=== PATIENT | male | born 1960 | race Caucasian/White ===

== ENCOUNTER → 2019-07-04 09:59 | Outpatient (CLI) | payer OTHER, SELFPAY ==
[2017-11-07 11:24] VITALS: BMI 30.4
== END ==
PROVIDERS: Family Provider Family Medicine; PCP Family Medicine; Referring Provider Internal Medicine Hematology & Oncology; Visit Provider Internal Medicine Hematology & Oncology
DX: C90.00 Multiple myeloma not having achieved remission (principal)
CPT/HCPCS: 36415; 86850; 86900; 86901

== ENCOUNTER → 2020-06-17 07:06 | Outpatient (CLI) | payer OTHER, SELFPAY ==
--- NOTE | 2020-06-17 07:11 | CT_ITS ---
STUDY: CT SCAN LOWER EXTREMITY HIP RIGHT REASON FOR EXAM: Male, 59 years old. RIGHT HIP ALPESH. OSTEOARTHRITIS RADIATION DOSAGE (If Supplied By Facility): CTDIvol = ( 14.06 ) mGy, DLP = ( 887.81 ) mGycm. Individualized dose optimization techniques were used for this CT.? TECHNIQUE: Multiple axial tomographic images of the hip joints was obtained without intravenous contrast administration. Coronal and sagittal reconstruction was obtained as well. COMPARISON: None. FINDINGS: There is a marked degree of joint space narrowing and osteoarthritis of the right hip joint with some marginal osteophytes along the superior lateral and inferior medial aspect of the femoral head and acetabulum. There is also evidence of subchondral geodes and possible avascular necrosis. CT/Extremity Lower without Contra IMPRESSION: Marked degree of osteoarthritis of the right hip joint as described with this subchondral geodes and possible avascular necrosis of the femoral head. Electronically Signed: Washington Ventura, at 9:31 EDT , Service support ,
== END ==
PROVIDERS: PCP Family Medicine; Referring Provider Specialist; Visit Provider Specialist
DX: M87.051 Idiopathic aseptic necrosis of right femur (principal)
CPT/HCPCS: 73700

== ENCOUNTER 2020-07-15 07:21 | Observation (INO) | payer OTHER, SELFPAY ==
[2017-11-07 11:24] VITALS: BMI 30.4
--- NOTE | 2020-06-17 14:03 | HP.PCM_ITS ---
History and Physical History and Physical [facility] Patient Name: Satinder Carrion : 1960 From: NATALIE KWONG PA-C DATE OF SURGERY: 07/01/2020 SCHEDULED PROCEDURE: robotic-assisted right total hip arthroplasty with bone biopsy femoral head HISTORY OF PRESENT ILLNESS: Preoperative history and physical exam was performed on June 17, 2020. This is a 59-year-old male who is had ongoing pain for 2 years. Pain with activity can reach 8/10. On average is pain as 5/10. Pain is increased with going up and down stairs, showering, and getting dressed. He does have start up pain. Pain is located in the right groin. Patient has been using a cane on occasion. Patient has had previous formal physical therapy with no improvement. He has been on narcotic pain medication in the past with no relief. Patient denies recent chest pain, shortness of breath, fevers chills, recent infections. Upon initial visit with Dr. Jaylen Garcia, patient did not divulge his full history. Upon examination at his preoperative visit we did discover the patient is currently being treated for multiple myeloma in which he sees an oncologist. He is currently using Bortezomib in which he gets IV every 2 weeks. His last injection was June 09, 2020 and is scheduled for upcoming injection on June 23, 2020. Patient's oncologist is Dr. Centeno. Patient also has history of hypertension as well as gastroesophageal reflux disease. REVIEW OF SYSTEMS: ROS: Const: Denies change in appetite, fever and weight change. CV: Denies chest pain, heart murmur and irregular heartbeat. Resp: Denies cough, pneumonia, shortness of breath, tuberculosis and wheezing. GI: Denies constipation, diarrhea, heartburn, nausea, rectal itching, bloody stools and vomiting. : Denies incontinence. Musculo: Reports pain and trouble walking, but denies leg swelling and weakness. Skin: Reports tattoo, but denies Raynaud's and history of shingles. Neuro: Denies ambulatory dysfunction, dizziness, numbness/tingling and tremor. Psych: Denies anxiety, insomnia and stress. Aidan/Lymph: Denies anemia, bleeding/bruising tendency and past transfusion. Reviewed and updated. PAST MEDICAL HISTORY: Advance Care Plan: No Advance Directives Effective Date: 05/28/2020 PMH: Medical Problems: Arthritis, Hard of Hearing, High Blood Pressure Multiple Myeloma - Dr Centeno Acid Reflux Accidents: Rib FX, Index Finger FX Surgical Hx: None Anesthesia Complications: None Assistive Devices: Glasses, Dentures, Cane Reviewed and updated. SOCIAL HISTORY: SH: Marital: .Occupation: Retired.Work Status: Retired.Hand Dominance: Right- handed. Personal Habits: Cigarette Use: Former.Smokeless Tobacco: Never Used Smokeless Tobacco.E-Cigarette Use: Never used.Alcohol: Has consumed alcohol in the pas t.Drug Use: Denies Use.Enjoy Exercising: Exercises 1-3 x/month. Reviewed and updated. VITALS: Ht: 75 Wt: 263lb Wt k.297 BMI: 32.9 BP: 124/84 Pulse: 86 T: 96.6 T: 35.9C ALLERGIES: No Known Drug Allergy MEDICATIONS: Darion Aspirin 325 mg 1po qday, Lisinopril 10 mg 1po qday, Omeprazole 20 mg prn, Hydrochlorothiazide 12.5 mg 1po qday, Dexamethasone 4 mg 1po qday, Bortezomib 3.5 mg subcutaneous every 2 weeks, Cyclophosphamide IV every 2 weeks, Darzalex (Daratumumab) IV every 2 weeks PRE-OP EXAM: General appearance:NORMAL Other: Eyes: Conjunctivae and lids: NORMAL Pupils: ERR Ears, Nose, Mouth, and Throat: NORMAL Other: Inspection of lips, teeth and gums: NORMAL Other: Neck: Examination of neck: no masses noted. Respiratory: Assessment of respiratory effort: NORMAL Other: Auscultation of lungs: clear to auscultation no wheezes, rhonchi or rales. Cardiovascular: Auscultation of heart: rhythm is consistent with heart block, no murmurs, gallops or rubs. Exam of carotid arteries: NORMAL Other: Gastrointestinal: Exam of abdomen: soft, nontender, nondistended bowel sounds present. PHYSICAL EXAMINATION: Patient does walk with an antalgic gait. He has tenderness to palpation along the lateral hip over the greater trochanteric region. Right hip patient has obligatory external rotation with flexion. Flexion 55, internal rotation neutral, external rotation 15. Patient does have increased groin pain with range of motion. Patient's right leg is 2 mm shorter than the left. He also has a 15 flexion contracture on the right. Sensation intact to light touch. Neurovascularly intact. IMAGING STUDIES: Previous x-rays of the right hip were reviewed which does show severe joint space narrowing with subchondral sclerosis, osteophyte formation consistent with severe stage IV osteoarthritis. There is collapse of the femoral head consistent with avascular necrosis. X-rays were then discussed with Dr. Jaylen Garcia and after further evaluation there does appear to be some scant lucencies in the proximal femur. IMPRESSION: 1. Severe stage IV osteoarthritis left hip with collapse of the femoral head and scant lucencies in the proximal femur 2. Multiple myeloma 3. Hypertension 4. Gastroesophageal reflux disease PLAN: Dr. Jaylen Garcia did discuss and review with the patient all treatment options including surgical versus nonsurgical options. Patient does wish to proceed with the above-stated procedure. Potential risks, benefits, and complications of the procedure were discussed in detail including but not limited to , infection, nerve and blood vessel damage, persistent pain, numbness, tingling, paresthesias, blood clot, pulmonary embolism, and requirement for possible further surgery. The patient expressed full understanding and has no further questions for the doctor. Patient does agree to proceed with the above-stated procedure and has signed the surgery consent form. In addition we are going to obtain an MRI with and without contrast of the right hip due to patient's recent discovery of having multiple myeloma. Upon further review the x-rays there does appear to be some scant lucency in the proximal femur. We also discussed with the patient that we will need to get surgical clearance from his oncologist Dr. Centeno. Patient will need to stop his current IV medication Bortezomib. We will appreciate recommendation was stopping this medication prior to surgery and post surgery. He will also need to stop his aspirin 325 mg 5 days leading up to surgery. We are obtaining surgical clearance from his primary care physician. Patient will be getting pre- operative labwork and EKG. This dictation was created using voice recognition software. Phonetic and/or grammatical errors may exist. ___ I have re-examined the patient. There are no clinical changes since date of exam. ___ See progress notes for changes. ___ Dictated on admission Date: Time: Signature:
--- NOTE | 2020-06-22 09:58 | EKG12_ITS ---
Test Reason : PREOP Blood Pressure : / mmHG Vent. Rate : 086 BPM Atrial Rate : 086 BPM P-R Int : 170 ms QRS Dur : 092 ms QT Int : 362 ms P-R-T Axes : 053 002 010 degrees QTc Int : 433 ms Sinus rhythm with occasional Premature ventricular complexes Nonspecific ST abnormality Abnormal ECG Confirmed by SAULO MCINTYRE, DOMINGA ([id number]), scientific editor AURA GATES ([id number]) on 06/23/2020 10:48:28 AM Referred By: Jaylen Garcia Confirmed By:DOMINGA VERNON MD
[2020-06-22 10:38] LABS: Absolute Lymphocyte Count 2.31 X10^3/uL (0.83-4.51); Absolute Neutrophil Count 3.6 X10^3/uL (2.0-7.7); Basophil# 0.05 X10^3/uL; Basophil% 0.7 % (0-1); Eosinophil# 0.16 X10^3/uL; Eosinophils% 2.3 % (0-5); Hematocrit 43.9 % (40-54); Hemoglobin 14.8 g/dL (13.0-16.5); Lymphocyte # 2.31 X10^3/ul (4.0); Lymphocyte % 33.8 % (19-41); Mean Corp Hgb Conc 33.7 g/dL (32-36); Mean Corpuscular Hgb 30.5 pg (27.0-32.0); Mean Corpuscular Volume 90.5 fL (80-94); Mean Platelet Vol. 9.8 fl (6.2-12.0); Monocyte# 0.74 X10^3/uL; Monocyte% 10.8 % (0-10); NRBC Flagged by Analyzer 0 % (0-5); Neutrophil # 3.56 X10^3/uL (2.7-7.7); Neutrophil % 52.1 % (47-70); Platelet Count 273 K/mm3 (150-450); RBC Distribution Width SD 46.1 fl (35.1-43.9); Red Blood Count 4.85 M/mm3 (4.6-6.2); White Blood Count 6.8 K/mm3 (4.4-11.0)
[2020-06-22 11:03] LABS: Anion Gap 10 (5-15); BUN 13 mg/dL (7-18); Calcium,Total 8.4 mg/dL (8.5-10.1); Chloride 102 mmol/L (98-107); Creatinine, Serum 1.08 mg/dL (0.70-1.30); EST Glomerular Filtration Rate 74 mL/min (>60); Est Glom Filt Rate - Afr Amer 89 mL/min (>60); Glucose 132 mg/dL (74-106); Potassium 3.6 mmol/L (3.5-5.1); Sodium Level 138 mmol/L (136-145)
[2020-06-22 11:06] LABS: Magnesium 2.2 mg/dL (1.6-2.6)
[2020-07-15] VITALS (11 sets, daily range): BP systolic 107–173; BP diastolic 64–101; PULSE 54–73; RESP 16–18; TEMP 36.1–37.1; O2SAT 96–100; BMI 32.6
--- NOTE | 2020-07-15 | HIP_PTH ---
PATIENT: CE RICHARDSON LOC: MS3 U#:[id number] AGE/SX: 59/M ROOM: MS317 RE07/15/[address]: Dr. Jaylen Garcia MD : 1960 BED: 1 DIS: 07/16/2020 SPEC #: [id number] RECD: 07/15/20 10:36 STATUS: LEANNA REQ #: [id number] PRASANNA: 07/15/20 00:[address]: Jaylen Garcia DEPT: SURGICAL PATHOLOGY RECD BY: Salty Herrera ENTERED: 07/15/20 10:36 SP TYPE: TOTAL HIP OTHR DR: Dr. Akil Montesinos III, MD Tissues: Hip, NOS Procedures: Decalcification bone/plaque Surgery Specimen Level IV HEADER OPERATION: ERAS, total hip anterior robotic arm, bone biopsy femoral head PRE-OP DIAGNOSIS: Severe stage IV osteoarthritis left hip with collapse of femoral head and scant lucencies in the proximal femur TISSUE SUBMITTED: Right femoral head MICROSCOPIC DIAGNOSIS Bone and soft tissue of right hip, total hip resection: Severe degenerative joint disease. AM:wilfrido 07/21/20 MICROSCOPIC DESCRIPTION Slides are reviewed. GROSS DESCRIPTION Received is one container designated right femoral head. The specimen consists of a femoral head measuring 6 x 6.5 x 5 cm. A few pieces of soft tissue attached on the femoral head measures in aggregate 3.5 x 3.5 x 1.5 cm. The articular surface displays prominent osteophyte formation, eburnation and bone erosion. General Technician sections are submitted in two cassettes as follows: 1 - soft tissue, 2??bone after decalcification. / SJ:wilfrido 07/15/20 TC:5 CPT: 59631, 94525
[2020-07-15] MEDS: Lactated Ringers 1,000 ML 999 ML IV ×2 (06:04→09:52)
[2020-07-15] MEDS: Scopolamine 1mg/72hr Patch 1 PATCH TRANSDERM. (06:05)
[2020-07-15] MEDS: Acetaminophen 500 MG Tablet 1000 MG PO ×3 (06:05→20:59)
[2020-07-15] MEDS: Gabapentin 600 MG Tablet PO (06:05)
[2020-07-15] MEDS: Celecoxib 200 MG Capsule 400 MG PO (06:05)
[2020-07-15 06:41] LABS: Bedside Glucose 126 mg/dL (70-110)
[2020-07-15] MEDS: Cefazolin 2 GM in 0.9% Normal Saline 100 ML IV (07:24)
--- NOTE | 2020-07-15 08:44 | RAD_ITS ---
STUDY: X-RAY - RIGHT HIP REASON FOR EXAM: Male, 59 years old. Total anterior hip with ALPESH in OR TECHNIQUE: 3 intraoperative views of the right hip. COMPARISON: None. FINDINGS: Intraoperative images demonstrate total placement of the right hip. Hardware components are well aligned on these limited views. RAD/Hip 1 view with Pelvis IMPRESSION: Intraoperative right hip replacement images as noted. Electronically Signed: Andrey Porter DO at 17:06 EDT Tel [phone], Service support ,
--- NOTE | 2020-07-15 09:13 | OP.PCM_ITS ---
Report of Operation Date of Procedure: 07/15/20 Pre-Operative Diagnosis: Right hip primary osteoarthritis Post-Operative Diagnosis: Right hip primary osteoarthritis Surgery/Procedure Performed:: Right minimally invasive direct anterior robotic assisted total hip replacement Description of Surgical Findings:: Stable hip with equal leg lengths set up mechanic crown assembly machine: Rachel Hendricks Type of Anesthesia:: Spinal Anesthesiologist: Renan Sanderson Special Medications: 2 g Ancef, 1 g TXA at incision, 1 g TXA closure, 10 mg Decadron, joint cocktail (5 mg Duramorph, 30 mL of 0.5% Ropivicaine, 1000 units of epinephrine, 30 mg of Toradol) Specimen's removed: Femoral head was sent to pathology Estimated Blood Loss (mL): 250 Fluids Replaced: 800 mL crystalloid Description of Procedure: Components used: 1. Accolade 2 [place] femoral stem size 11 132? 2. Stone trident 2 acetabular shell size 64 mm 3. [place] X3 polyethylene H 4. Stone Biolox delta 36 mm, 2.5 mm femoral head Brief history operative indications: 59 yo m who failed conservative measures for their hip osteoarthritis. X-rays were consistent with osteoarthritis including joint space narrowing, osteophyte formation and subchondral cysts. Total hip replacement was discussed with the patient with risks and benefits including but not limited to blood loss, DVTs, PEs, neurovascular damage, dislocation, general risks of anesthesia including loss of life. Patient demonstrated an understanding medical clearance is obtained the patient was consented for surgery. Procedure: On the date of procedure the patient's R hip was marked in the preoperative area. Patient was then taken back to the operating room where anesthesia assumed control of the C-spine and airway and administered anesthetic. Patient was transferred to the operating table and placed in the supine position. The hips were placed at the break of the bed and a sacral bump was placed. A checkpoint was placed on the tibial tubercle. The R lower extremity was then prepped out in a sterile fashion using chlorhexidine while the surgeon scrubbed. The PA was vital in the positioning of the patient. Upon reentering the room the R lower extremity was draped in the standard orthopedic fashion and the incision was marked. A timeout was called and everyone agreed upon the side, the site, the procedure be performed, antibody given, and patient's identity. 3 pins were placed in the right iliac crest with a small skin incision and blunt dissection down to the bone. After the skins were placed in a ray was placed for targeting. At this time left hip operative incision was made through skin, subcutaneous tissue, and fat down to fascia. The fascia was then incised and the TFL was retracted laterally. A retractor was placed on the lateral border of the femoral neck. Attention was directed to the inferior portion of the approach and all crossing vessels were identified and appropriately coagulated. A retractor was then placed on the medial portion of the femoral neck. The anterior capsule was then cleared of all soft tissue and then H shaped capsulotomy was made. The retractors were then placed inside the capsule. The checkpoint was placed. The checkpoints were registered. The femoral neck was identified and a cleanup cut was made. At this time a power corkscrew was used to remove the femoral head. Attention was then turned toward the acetabulum where the soft tissues were appropriately retracted and debrided. The acetabulum was registered. The robot was brought into the field sterilely and the acetabulum was reamed to 64 mm. A 64 mm cup was then selected and impacted into place. Acetabular liner was impacted into place and locking mechanism was verified. The position of the acetabular cup was then verified under live fluoroscopy. Attention was then turned to the femur. Soft tissue releases on the medial and lateral femoral neck were appropriately done, the leg was externally rotated and lateralized. A Haider retractor was placed medially and proximally to the greater trochanter this allowed appropriate visualization and exposure of the femoral canal. Rongeour was then used to remove excess lateral bone. A canal finder and entry broach were used to open the proximal canal. Once we verified we were down the femoral canal we subsequently broached up to a size 11 femur. The appropriate neck was placed in the previously selected head was trialed with a 2.5 mm neck. Traction was pulled and the hip was reduced with internal rotation. Once it was appropriately reduced and stability was checked. There was minimal shuck, equal leg lengths and appropriate stability with hyperextension and external rotation as well as with 90? flexion and internal rotation. Fluoroscopy was then also used to verify the position of the components and leg lengths using the contralateral side for comparison. The trial components were then dislocated the proximal femur was again exposed and the components were removed from the wound. The final components were jyothi ified and opened. The wound was copiously irrigated out with normal saline. The acetabulum was checked for any residual debris. The final components were placed and impacted. Traction and internal rotation were again used to reduce the hip. After adequate reduction the hip remained stable with appropriate leg lengths. The final components were once again checked with live fluoroscopy and were found to be satisfactory. The wound was then copiously irrigated with normal saline once more, and hemostasis was obtained. Closure was then done using #1 Vicryl runner to close the fascia. A 2-0 vicryl interuppted sutures were used to close the subcutaneous skin. A 3-0 Monocryl and Steri-Strips were used for final skin closure. the pins were removed and pin sites closed. A sterile dressing was placed. Patient was awakened by anesthesia and transferred to the [facility]. Patient was then transferred to the PACU for recovery. Postoperative plan: Patient will get 24 hours postop antibiotics. Patient will get in-house physical therapy and will be weight-bear as tolerated. Patient will follow up in office in 2 weeks for a wound check and x-rays. Patient be placed on Xarelto for DVT prophylaxis due to current treatment for multiple myeloma. - Complications No intraoperative complications - Admit VTE Documentation VTE Present on Admission: No VTE Mechan Device Prophylaxis: SCD's, Thigh High AYAZ Hose VTE Pharm Prophylaxis ordered?: Yes
--- NOTE | 2020-07-15 10:08 | RAD_ITS ---
STUDY: X-RAY - PELVIS AND RIGHT HIP REASON FOR EXAM: Male, 59 years old. POST OP TECHNIQUE: 2 views of the pelvis and hip. COMPARISON: None. FINDINGS: The patient is status post right total hip preplacement. There is good alignment. RAD/Hip Min 2 Views (Portable) IMPRESSION: Total right hip replacement. There is good alignment. Electronically Signed: Washington Ventura, at 11:25 EDT , Service support ,
[2020-07-15] MEDS: Lactated Ringers 1,000 ML 125 ML IV ×2 (10:18→15:21)
[2020-07-15] MEDS: Ensure Surgery 237 ML LIQUID PO ×2 (12:58→18:39)
[2020-07-15] MEDS: Senna/Docusate Sodium 1 Tablet 2 TABLET PO ×2 (12:59→20:59)
[2020-07-15] MEDS: Famotidine 20 MG Tablet PO (12:59)
[2020-07-15] MEDS: hydroCHLOROthiazide 12.5mg 12.5 MG PO (13:00)
[2020-07-15] MEDS: Lisinopril 20 MG Tablet PO (13:00)
[2020-07-15] MEDS: amLODIPine 5 MG Tablet PO (13:00)
[2020-07-15] MEDS: Cefazolin 1 GM/50 ML BAG IV ×2 (15:22→23:25)
[2020-07-15] MEDS: Aspirin 81 MG TAB.CHEW PO (17:13)
[2020-07-15] MEDS: oxyCODONE 5 MG Tablet PO ×2 (17:13→21:19)
[2020-07-16 01:30] VITALS: BP 107/81; PULSE 77; RESP 16; TEMP 37.2; O2SAT 97
[2020-07-16] MEDS: oxyCODONE 5 MG Tablet PO ×3 (01:36→12:52)
[2020-07-16 05:38] VITALS: BP 106/67; PULSE 73; RESP 18; TEMP 37.2; O2SAT 95
[2020-07-16] MEDS: Acetaminophen 500 MG Tablet 1000 MG PO ×2 (05:40→12:51)
[2020-07-16 06:44] LABS: Hematocrit 32.4 % (40-54); Hemoglobin 10.7 g/dL (13.0-16.5); Mean Corpuscular Hgb 30.8 pg (27.0-32.0); Mean Corpuscular Volume 93.4 fL (80-94); Mean Platelet Vol. 10.2 fl (6.2-12.0); Platelet Count 206 K/mm3 (150-450); RBC Distribution Width CV 14.6 % (11.6-14.6); RBC Distribution Width SD 50.1 fl (35.1-43.9); Red Blood Count 3.47 M/mm3 (4.6-6.2); White Blood Count 9.1 K/mm3 (4.4-11.0)
[2020-07-16 07:05] LABS: Anion Gap 5 (5-15); BUN 17 mg/dL (7-18); BUN/Creat Ratio 17.7 RATIO (10-20); Calcium,Total 7.9 mg/dL (8.5-10.1); Chloride 105 mmol/L (98-107); Creatinine, Serum 0.96 mg/dL (0.70-1.30); EST Glomerular Filtration Rate 85 mL/min (>60); Est Glom Filt Rate - Afr Amer 102 mL/min (>60); Estimated Creatinine Clearance 96.58 ml/min; Glucose 133 mg/dL (74-106); Potassium 3.8 mmol/L (3.5-5.1); Sodium Level 135 mmol/L (136-145)
--- NOTE | 2020-07-16 07:46 | PN.ORTHO_ITS ---
Subjective: The patient was sitting in bedside chair upon examination. Patient denies any chest pain, shortness of breath, dizziness, lightheadedness, nausea or vomiting, or calf pain. Pain is controlled on medications. No adverse overnight events. Overall patient is doing well. Pain is been well controlled. Patient does have history of multiple myeloma and currently is on Xarelto for DVT prophylaxis. Objective: Vital signs stable and afebrile. Patient is able to plantarflex and dorsiflex actively. Sensation is intact to light touch to saphenous, sural, superficial and deep peroneal, and tibial distribution. Dressing is clean dry and intact. Negative Homans bilaterally, negative signs and symptoms of DVT. - Physical Exam Vitals/I&O's: Vital Signs Temp Pulse Resp BP Pulse Ox 98.9 F 73 18 106/67 95 07/16/20 05:38 07/16/20 05:38 07/16/20 05:38 07/16/20 05:38 07/16/20 05:38 Oxygen Flow Rate (L/min) 6 Oxygen Delivery Method Room Air Weight: 118.5 kg Body Mass Index (BMI) 32.6 Intake and Output for Last 24 Hours 07/14/20 07/15/20 07/16/20 23:59 23:59 23:59 Intake Total 3888.25 / 4188.25 1350 / 1350 Output Total 450 / 1150 950 / 950 Balance 3438.25 / 3038.25 400 / 400 General: Alert, Oriented x3, Cooperative, No apparent distress Laboratory Results 07/16/20 06:28: WBC 9.1, RBC 3.47 L, Hgb 10.7 L, Hct 32.4 L, MCV 93.4, MCH 30.8, MCHC 33.0, RDW Std Deviation 50.1 H, RDW Coeff of Kerline 14.6, Plt Count 206, MPV 10.2 07/16/20 06:28: Sodium 135 L, Potassium 3.8, Chloride 105, Carbon Dioxide 25.0, Anion Gap 5, BUN 17, Creatinine 0.96, Estim Creat Clear Calc 96.58, Est GFR (MDRD) Af Amer 102, Est GFR (MDRD) Non-Af 85, BUN/Creatinine Ratio 17.7, Glucose 133 H, Calcium 7.9 L Current Medications Acetaminophen (Tylenol) 1,000 mg PO Q8 DIONNE Last Admin: 07/16/20 05:40 Dose: 1,000 mg Documented by: Amlodipine Besylate (Norvasc) 5 mg PO DAILY [facility] Last Admin: 07/15/20 13:00 Dose: 5 mg Documented by: Aspirin (Aspirin) 325 mg PO DAILY@0800 [facility] Enteral Nutritional Formula (Ensure Surgery) 237 ml PO TIDCM [facility] Last Admin: 07/15/20 18:39 Dose: 237 ml Documented by: Famotidine (Pepcid) 20 mg PO DAILY [facility] Last Admin: 07/15/20 12:59 Dose: 20 mg Documented by: Hydrochlorothiazide () 12.5 mg PO DAILY [facility] Last Admin: 07/15/20 13:00 Dose: 12.5 mg Documented by: Lactated Ringer's () 1,000 mls @ 125 mls/hr IV .Q8H [facility] Last Infusion: 07/16/20 05:41 Dose: Infused Documented by: Sodium Chloride () 250 mls @ 15 mls/hr IV .[id number] PRN PRN Reason: Saline Flush Insulin Human Lispro (Humalog Kwikpen ([facility])) 1 - 6 unit SC Q4H PRN PRN; Protoco l PRN Reason: BG>/= 180, SEE PROTOCOL Ketorolac Tromethamine (Toradol ([facility])) 15 mg IV Q6H PRN PRN PRN Reason: Pain Score 1-5/10 Lisinopril (Zestril) 20 mg PO DAILY [facility] Last Admin: 07/15/20 13:00 Dose: 20 mg Documented by: Meloxicam (Mobic) 7.5 mg PO BID [facility] Morphine Sulfate () 2 - 4 mg IV Q2H PRN PRN PRN Reason: Pain Score 4-10/10 Morphine Sulfate () 2 - 4 mg IV Q2H PRN PRN PRN Reason: Pain Score 4-10/10 Ondansetron HCl (Zofran) 4 mg IV Q8H PRN PRN PRN Reason: NAUSEA Oxycodone HCl (Oxyir) 5 - 10 mg PO Q4H PRN PRN PRN Reason: Pain Score 4-10/10 Last Admin: 07/16/20 01:36 Dose: 10 mg Documented by: Promethazine HCl (Phenergan) 12.5 mg IM Q6H PRN PRN; Protocol PRN Reason: NAUSEA/VOMITING Rivaroxaban (Xarelto) 10 mg PO DAILY@1700 [facility] Senna/Docusate Sodium (Senokot-S, Jovana-Colace) 2 tablet PO BID [facility] Last Admin: 07/15/20 20:59 Dose: 2 tablet Documented by: Sodium Chloride () 10 - 40 ml IV UD PRN PRN Reason: SALINE FLUSH Medical Necessity - Tobacco Use Smoking Status: Former smoker Tobacco Use: Non-smoker Assessment/Plan All Active Problems Infected ulcer of skin (Acute) Varicosities of leg (Acute) Peripheral vascular occlusive disease (Acute) Leg ulcer, left (Acute) Hypergranulation (Resolved) Chronic ulcer of left leg with fat layer exposed (Resolved) Venous ulcer of left leg (Acute) No significant past medical history (Acute) 1. S/P right direct anterior total hip arthroplasty POD #1 2. Continue Pain Medications: Tylenol and OxyIR 3. DVT Prophylaxis: Xarelto 10 mg once daily due to patient having underlying multiple myeloma. We will use Xarelto for 2 weeks postoperatively. He will continue with his aspirin prescribed by the primary care physician. Case was discussed with Dr. Jaylen Garcia. 4. PT/OT: Weightbearing as tolerated 5. H & H: 10.7/32.4, asymptomatic. Secondary to acute blood loss from surgery 6. Encouraged Incentive Spirometry 7. Disposition: Plan will be for discharge home today as long as pain is well controlled and patient tolerates physical therapy. Prescriptions will be E s cribed to [facility] in [facility]. Patient will follow-up per postop instructions. He does have outpatient physical therapy established. I have reviewed the [place] [employer] [facility] Reporting System ([facility]ARRS) report for this patient for refill pattern and other prescriber involvement as part of the appropriate surveillance for the provision of acute and chronic controlled medications. The report was requested and reviewed on the date of this entry and was considered in the prescribing process.
--- NOTE | 2020-07-16 07:54 | DCINST_ITS ---
Discharge Diet: No Restrictions Discharge Activity: May Not Drive - while taking narcotic pain medications. May shower in (days): 1 - Dressing must be intact to skin. Turn dressing away from water Ice area for (Minutes): 20 - Every 1-2 hours while awake Weight Bearing Status: Weight bearing as tolerated Elevate: Operative Extremity Additional Activity Instructions:: Wear elastic stockings for 2 weeks. DO NOT use alcohol with narcotic pain medication. DO NOT make important decisions while taking narcotic medication. If you have problems with taking your medication (rash, itching, nausea, etc.) call the office at once. Call your doctor if your incision/area has: Increased Pain/ Swelling, Increased Redness, Foul Smelling Discharge Call your doctor if you observe: Fever of 101 or Higher Remove Dressing in (days):: 4 - Okay to remove dressing on July 20, 2020 Additional Instructions: Follow orthopedic postop instructions Allergies/Adverse Reactions: Allergies No Known Allergies Allergy (Verified 07/15/20 05:28) Medications to take at Discharge Lisinopril/Hydrochlorothiazide [Zestoretic 20-12.5 mg Tablet] 1 each PO DAILY 03/02/17 Amlodipine Besylate [Norvasc] 5 mg PO DAILY 10/25/17 Aspirin E.C. [Ecotrin] 325 mg PO DAILY@0800 06/18/20 Acetaminophen [Tylenol] 1,000 mg PO Q8 #100 tab 07/16/20 Oxycodone [Oxyir] 5 - 10 mg PO Q4H PRN PRN 4 Days #48 tablet 07/16/20 Rivaroxaban [Xarelto] 10 mg PO DAILY@1700 #13 tab 07/16/20 Senna/Docusate Sodium [Senokot-S] 2 tab PO BID #10 tab 07/16/20 The following prescriptions were given: Oxycodone [Oxyir] 5 - 10 mg PO Q4H PRN PRN 4 Days #48 tablet PRN Reason: Pain Score 4-10/10 Transmission Status: Received by LEATHA SELF RD Senna/Docusate Sodium [Senokot-S] 2 tab PO BID #10 tab Transmission Status: Pending to LEATHA SELF RD Acetaminophen [Tylenol] 1,000 mg PO Q8 #100 tab Transmission Status: Pending to LEATHA SELF RD Rivaroxaban [Xarelto] 10 mg PO DAILY@1700 #13 tab Transmission Status: Pending to [facility] JACKSON[address] CLAIR MERIDA Primary Care Physician: Akil Montesinos III, MD [Primary Care Provider] - Test Results: Test results from this visit will be discussed in further detail at your follow- up appointment, if applicable. Please Follow Up With: Physical Therapy [facility] When: 07/21/20 Please Follow Up With: Doug Perry PA-C When: 07/29/20 @ 10:30 am
[2020-07-16] MEDS: Ensure Surgery 237 ML LIQUID PO ×2 (08:16→12:50)
[2020-07-16] MEDS: Aspirin 325 MG Tablet PO (08:16)
--- NOTE | 2020-07-16 10:25 | CASEMGMT ---
MUSHTAQ RAMSEY Face to Face with patient for initial transition planning/care coordination assessment. RN CM introduced self and role at [facility]. Patient lying in bed, alert and oriented. Patient willing to participate in assessment and is able to answer all questions appropriately. Care providers, pharmacy, and demographics verified. Patient wishes to discharge home and is setup with [facility] for outpatient therapy. Patient states he has no further needs or concerns at this time. CM to follow for discharge planning needs that may arise. PCP: [facility] Specialists: anastasia Garcia; Taryn, oncology Preferred Pharmacy: [facility] Insurance: MMO Prescription Benefit: yes Living Will/HPOA: yes Malena Carrion LNOK: Living Arrangements: Patient lives with in a 1 story home with 2 steps to enter the home. Patient states he was independent at home prior to surgery. Transportation: DME/HHC: Patient states he has shower chair, raised toilet, cane, walker, rollator, wheelchair at home. Patient is setup with [facility] for outpatient therapy. Disposition Plan: Patient to discharge home with outpatient therapy, family support, and follow-up plans in place. Nancy KOCH, RN, CM
[2020-07-16 10:37] VITALS: BP 105/66; PULSE 71; RESP 18; TEMP 36.7; O2SAT 94
[2020-07-16] MEDS: Lisinopril 20 MG Tablet PO (10:42)
[2020-07-16] MEDS: Senna/Docusate Sodium 1 Tablet 2 TABLET PO (10:42)
[2020-07-16] MEDS: hydroCHLOROthiazide 12.5mg 12.5 MG PO (10:42)
[2020-07-16] MEDS: amLODIPine 5 MG Tablet PO (10:42)
[2020-07-16] MEDS: Famotidine 20 MG Tablet PO (10:42)
[2020-07-16] MEDS: Ketorolac 15 MG/ML Vial IV (10:43)
[2020-07-16] MEDS: 0.9% Saline Lock 10 ML Syringe IV (10:43)
== END 2020-07-16 13:56 | disposition home or self-care (01) ==
LOC: MS3 11:18 → SDC 11:19 → MS3 11:19
PROVIDERS: Anesthesiology; Admitting Provider Specialist; PCP Family Medicine; Referring Provider Specialist; Visit Provider Specialist
PROC: 8E0Y0CZ Robotic Assisted Procedure of Lower Extremity, Open Approach (ICD-10-PCS; CPT 27130; principal; 2020-07-15 07:05)
DX: M16.11 Unilateral primary osteoarthritis, right hip (principal); Z11.59 Encounter for screening for other viral diseases; K21.9 Gastro-esophageal reflux disease without esophagitis; I10 Essential (primary) hypertension; R94.31 Abnormal electrocardiogram [ECG] [EKG]; C90.00 Multiple myeloma not having achieved remission; Z79.899 Other long term (current) drug therapy; Z79.82 Long term (current) use of aspirin; Z87.891 Personal history of nicotine dependence
CPT/HCPCS: 01214; 27130; S2900; 36415; 73501; 73502; 76000; 80048; 82962; 83735; 85025; 85027; 87077; 87081; 87635; 88305; 88311; 93005; 94799; 96361; 96365; 96366; 96375; 97110; 97116; 97162; 97166; 97530; 99218; 99251; C1776; J7120; A4216; G0378; G0379; G0463; J2405; U0003

== ENCOUNTER 2020-09-08 04:25 | Emergency (ER) | payer OTHER, SELFPAY ==
[2020-07-15 05:50] VITALS: BMI 32.6
[2020-09-08] VITALS (7 sets, daily range): BP systolic 110–133; BP diastolic 65–86; PULSE 75–107; RESP 16–24; TEMP 36.6–37.9; O2SAT 93–96; BMI 31.6
--- NOTE | 2020-09-08 05:10 | EKG12_ITS ---
Test Reason : SOB Blood Pressure : / mmHG Vent. Rate : 101 BPM Atrial Rate : 101 BPM P-R Int : 168 ms QRS Dur : 094 ms QT Int : 318 ms P-R-T Axes : 044 -12 009 degrees QTc Int : 412 ms Sinus tachycardia Otherwise normal ECG Confirmed by MARILIN MCINTYRE, JENNIFER ([id number]), editor book AURA GATES ([id number]) on 09/10/2020 9:02:17 AM Referred By: SANTOSH Confirmed By:JENNIFER GASTON MD
--- NOTE | 2020-09-08 05:10 | RAD_ITS ---
HISTORY: Cough x2 days, rib pain. ADDITIONAL HISTORY: None provided. EXAMINATION/TECHNIQUE: XR Chest 1 View AP/PA Number of images including paperwork: 1 COMPARISON: 11/07/2017 FINDINGS: LUNGS AND PLEURA: Low lung volumes. No consolidation, mass or pleural effusion. Linear basilar opacities compatible with subsegmental atelectasis versus scarring. CARDIAC SILHOUETTE: Unremarkable. MEDIASTINUM AND CLEMENT: Unremarkable. UPPER ABDOMEN: Unremarkable. SKELETON AND SOFT TISSUES: No acute skeletal findings. Right posterior eighth rib deformity appears similar. OTHER DEVICES AND HARDWARE: None. RAD/Chest 1 View (Portable) IMPRESSION: Mild basilar atelectasis versus scarring. at 0606 Reported and signed by: Eunice Phelps MD Electronically Signed: Eunice Phelps MD at 6:05 EDT Tel , Service support ,
--- NOTE | 2020-09-08 05:12 | ED.DCSUM_ITS ---
History of Present Illness Chief Complaint: Chest Other Informant: Patient Narrative: 60-year-old male with history of multiple myeloma on chemotherapy currently presenting for rib pain, cough. He states he thought he had a fever on Monday but did not check his temperature. He does not believe he has had a return of this. He does not have shortness of breath but he is saying that his ribs hurt. No loss of taste or smell. No body aches. He is not short of breath. He does not think he has been around anybody that has been ill. - Past Medical History (1) Hypertension Status: Chronic Past Medical History - Allergies and Home Meds Allergies/Adverse Reactions: Allergies No Known Allergies Allergy (Verified 09/08/20 04:35) Primary Care Physician: Akil Montesinos III, MD [Primary Care Provider] - Past Medical History: - - Multiple myeloma Surgical History: noncontributory, tonsillectomy Lives: Spouse/ Significant Other Smoking Status: Former smoker Alcohol: None Drugs: None Review of Systems General: Reports: Chills, Fever. Denies: Malaise Eyes: Denies: Visual changes - bilaterally, Diplopia ENT: Reports: Bilateral ear pain Cardiovascular: Denies: Chest pain, Palpitations Respiratory: Reports: Cough, - - Bilateral lower rib pain. Denies: Dyspnea Genitourinary: Denies: Dysuria, Hematuria Musculoskeletal: Denies: Myalgias, Arthralgias Skin: Denies: Rash, Abscess Neurological: Denies: Headache, Weakness Physical Exam Vital Signs/Narrative: Vital Signs Temp Pulse Resp BP Pulse Ox 09/08/20 04:32 99.2 F H 107 H 24 H 133/86 H 96 09/08/20 04:29 99.2 F H 107 H 24 H 133/86 H 96 Inital Vital Signs reviewed: Yes General: Well nourished, Well developed, No Acute Distress Head: Normocephalic, Atraumatic Eyes: Perrl, EOMI ENT: Moist mucous membranes Cardiovascular: Regular rhythm, Tachycardia Respiratory: No distress, CTA bilaterally, - - Tenderness to palpation of the lower ribs bilaterally in the midclavicular line. No crepitance. No deformity. Abdomen: Soft, Nontender Extremities: Nontender, No edema Skin: Normal color, No rash. Negative for: Cyanosis Neurological: Alert, Oriented x3 Psychological: Normal affect, Normal Mood Diagnostic/Tx/Re-eval Clinical Impression(s) from Imaging Studies Chest X-Ray 09/08/20 05:10 IMPRESSION: Mild basilar atelectasis versus scarring. at 0606 Reported and signed by: Eunice Phelps MD Electronically Signed: Eunice Phelps MD at 6:05 EDT Tel , Service support , Laboratory Data 09/08/20 09/08/20 09/08/20 05:32 05:32 05:32 WBC 5.6 RBC 4.36 L Hgb 13.0 Hct 39.7 L MCV 91.1 MCH 29.8 MCHC 32.7 RDW Std Deviation 47.2 H RDW Coeff of Kerline 14.2 Plt Count 195 MPV 10.1 Immature Gran % (Auto) 0.400 Neut % (Auto) 75.1 H Lymph % (Auto) 15.7 L Trinity % (Auto) 8.4 Eos % (Auto) 0.2 Baso % (Auto) 0.2 Absolute Neuts (auto) 4.2 Absolute Lymphs (auto) 0.88 Nucleated RBC % 0 PT 14.0 INR 1.1 APTT 38.4 H Sodium 135 L Potassium 3.9 Chloride 105 Carbon Dioxide 22.0 Anion Gap 8 BUN 20 H Creatinine 0.99 Estim Creat Clear Calc 92.47 Est GFR (MDRD) Af Amer 99 Est GFR (MDRD) Non-Af 82 BUN/Creatinine Ratio 20.3 H Glucose 135 H Lactic Acid Calcium 8.5 Total Bilirubin 0.40 AST 10 L ALT 18 Alkaline Phosphatase 81 Troponin I < 0.015 Total Protein 7.5 Albumin 3.3 Globulin 4.2 Albumin/Globulin Ratio 0.8 L Procalcitonin Urine Color Urine Clarity Urine pH Ur Specific [place] Urine Protein Urine Glucose (UA) Urine Ketones Urine Occult Blood Urine Nitrite Urine Bilirubin Urine Urobilinogen Ur Leukocyte Esterase Urine RBC Urine WBC Ur Squamous Epith Cells Urine Bacteria Urine Mucus 09/08/20 09/08/20 09/08/20 05:32 05:32 06:25 WBC RBC Hgb Hct MCV MCH MCHC RDW Std Deviation RDW Coeff of Kerline Plt Count MPV Immature Gran % (Auto) Neut % (Auto) Lymph % (Auto) Trinity % (Auto) Eos % (Auto) Baso % (Auto) Absolute Neuts (auto) Absolute Lymphs (auto) Nucleated RBC % PT INR APTT Sodium Potassium Chloride Carbon Dioxide Anion Gap BUN Creatinine Estim Creat Clear Calc Est GFR (MDRD) Af Amer Est GFR (MDRD) Non-Af BUN/Creatinine Ratio Glucose Lactic Acid 1.2 Calcium Total Bilirubin AST ALT Alkaline Phosphatase Troponin I Total Protein Albumin Globulin Albumin/Globulin Ratio Procalcitonin 0.11 H Urine Color Yellow Urine Clarity Clear Urine pH 5.0 Ur Specific [place] 1.025 Urine Protein 30 H Urine Glucose (UA) Normal Urine Ketones 5 H Urine Occult Blood 25 H Urine Nitrite Negative Urine Bilirubin Negative Urine Urobilinogen Normal Ur Leukocyte Esterase 25 H Urine RBC 0-5 SEEN Urine WBC 0-5 SEEN Ur Squamous Epith Cells 0 SEEN Urine Bacteria RARE Urine Mucus 0 SEEN - Rhythm Strip Rhythm Strip: Sinus Rhythm Rate: 101 - EKG Initial EKG Interpretation: No Acute Injury Pattern, Sinus Tachycardia - Medical Decision Making Seen and evaluated on arrival for suspicions of fever and cough. Patient states that he feels otherwise well except for rib pain. His initial vitals show that he was tachypneic and tachycardic however he was afebrile. Shortly after this he developed a fever. He was given IV Toradol for his rib pain which did take the fever down. Also given IV fluids. Patient's lab work does not show a leukocytosis. He is slightly lymphopenic. Lactic acid is normal. Opponent is negative. Urinalysis shows 25 leukocyte esterase with rare bacteria. Chest x- ray is negative. Patient was swabbed for Covid?19. He is awaiting CTA. Patient will be signed out to incoming ED physician for follow-up of CTA. Impression: 1. Febrile illness 2. Cough ED Disposition - Plan for ED Patient: Referrals: Akil Montesinos III, MD [Primary Care Provider] -
[2020-09-08 05:42] LABS: Absolute Lymphocyte Count 0.88 X10^3/uL (0.83-4.51); Absolute Neutrophil Count 4.2 X10^3/uL (2.0-7.7); Basophil# 0.01 X10^3/uL; Basophil% 0.2 % (0-1); Eosinophil# 0.01 X10^3/uL; Eosinophils% 0.2 % (0-5); Hematocrit 39.7 % (40-54); Lymphocyte # 0.88 X10^3/ul (4.0); Lymphocyte % 15.7 % (19-41); Mean Corp Hgb Conc 32.7 g/dL (32-36); Mean Corpuscular Hgb 29.8 pg (27.0-32.0); Mean Corpuscular Volume 91.1 fL (80-94); Mean Platelet Vol. 10.1 fl (6.2-12.0); Monocyte# 0.47 X10^3/uL; Monocyte% 8.4 % (0-10); NRBC Flagged by Analyzer 0 % (0-5); Neutrophil % 75.1 % (47-70); Platelet Count 195 K/mm3 (150-450); RBC Distribution Width CV 14.2 % (11.6-14.6); RBC Distribution Width SD 47.2 fl (35.1-43.9); Red Blood Count 4.36 M/mm3 (4.6-6.2); White Blood Count 5.6 K/mm3 (4.4-11.0)
[2020-09-08 05:57] LABS: International Normalized Ratio 1.1
[2020-09-08 05:58] LABS: Partial Thromboplast Time 38.4 Seconds (24.1-36.2)
[2020-09-08] MEDS: Ondansetron 4 MG/2 ML Vial IV (05:59)
[2020-09-08] MEDS: Ketorolac 15 MG/ML Vial IV (05:59)
[2020-09-08 06:00] LABS: ALB/GLOB Ratio 0.8 RATIO (0.9-2.4); AST(SGOT) 10 U/L (15-37); Alanine Aminotransfer ALT/SGPT 18 U/L (16-61); Albumin, Serum 3.3 g/dL (3.2-5.0); Alkaline Phosphatase 81 U/L (45-117); Anion Gap 8 (5-15); BUN 20 mg/dL (7-18); BUN/Creat Ratio 20.3 RATIO (10-20); Calcium,Total 8.5 mg/dL (8.5-10.1); Chloride 105 mmol/L (98-107); Creatinine, Serum 0.99 mg/dL (0.70-1.30); EST Glomerular Filtration Rate 82 mL/min (>60); Est Glom Filt Rate - Afr Amer 99 mL/min (>60); Estimated Creatinine Clearance 92.47 ml/min; Globulin 4.2 g/dL (2.2-4.2); Glucose 135 mg/dL (74-106); Potassium 3.9 mmol/L (3.5-5.1); Protein, Total 7.5 g/dL (6.4-8.2); Sodium Level 135 mmol/L (136-145)
[2020-09-08 06:04] LABS: Lactic Acid 1.2 mmol/L (0.4-1.9)
[2020-09-08 06:05] LABS: Procalcitonin 0.11 ng/mL (0.00-0.09)
[2020-09-08 06:36] LABS: Color, Urine Yellow (Yellow); Glucose, Dipstick Normal (Normal); Ketone-Dipstick 5 mg/dl (Negative); Leukocyte Esterase-Dipstick 25 /ul (Negative); Mucous, Urine 0 SEEN /hpf (<or=2+); Nitrite-Dipstick Negative (Negative); Occult Blood-Urine 25 /ul (Negative); Protein-Dipstick 30 mg/dl (Negative); Specific Gravity, Urine 1.025 (1.002-1.030); Squamous Epithelial Cells - UA 0 SEEN /hpf (0-5); Urine Bilirubin Dipstick Negative (Negative); Urine Clarity Clear (Clear); Urine Urobilinogen Normal (Normal)
[2020-09-08 06:44] LABS: Bacteria RARE /hpf (None Seen); Red Blood Cells-Urine 0-5 SEEN /hpf (0-5); White Blood Cells 0-5 SEEN /hpf (0-5)
--- NOTE | 2020-09-08 07:13 | CT_ITS ---
STUDY: CTA CHEST REASON FOR EXAM: Male, 60 years old. KEEN, COUGH, RIB PAIN, HTN, HX-MULTIPLE MYELOMA RADIATION DOSAGE (If Supplied By Facility): CTDIvol = ( 14.81 ) mGy, DLP = ( 509.45 ) mGycm TECHNIQUE: The examination was performed with the intravenous administration of IV 100mL Isovue-370. Post-processing of the angiographic images was performed, with multiplanar reformation and 3D reconstruction. Individualized dose optimization techniques were used for this CT. COMPARISON: Chest x-ray earlier today. FINDINGS: Normal enhancement of the main pulmonary artery and right and left pulmonary arteries. Normal enhancement of the bilateral peripheral pulmonary arteries. There is no demonstrated pulmonary embolism. Normal thoracic aorta and visualized great vessels. There is no demonstrated aortic dissection. Normal heart and pericardium. Normal mediastinum. Normal hilar regions. Normal visualized trachea and bronchi. The lungs are well expanded. Bilateral peripheral patchy groundglass opacities consistent with subsegmental atelectasis or pneumonitis. Normal pleura. Normal chest wall structures. 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 5 cm cyst of the upper pole the right kidney. CT/CTA Chest W/WO Contrast IMPRESSION: 1. No CT evidence of pulmonary embolism. 2. Bilateral subsegmental atelectasis or pneumonitis particularly in the right upper lobe. Commonly reported imaging features of Covid 19 pneumonia are present. Other processes such as influenza pneumonia and organizing pneumonia, as can be seen with drug toxicity and connective tissue disease can cause a similar imaging pattern. 3. 2.5 cm expansile lytic lesion of the posterior lateral right eighth rib consistent with plasmacytoma in this patient with multiple myeloma. There is some cortical breakthrough. Electronically Signed: Toro Montesinos MD at 8:22 EDT Tel , Service support ,
--- NOTE | 2020-09-08 10:34 | ED.DEP ---
ED Disposition - Plan for ED Patient: Disposition: Home or Assisted Living Diagnosis: COVID-19 Instructions: Pneumonia Prescriptions: predniSONE tablet 60 mg PO DAILY #15 tab Prescription Printed Azithromycin [Zithromax Z-Theo] 250 mg PO UD #1 box Prescription Printed Referrals: Akil Montesinos III, MD [Primary Care Provider] - As Needed
== END 2020-09-08 11:17 | disposition home or self-care (01) ==
PROVIDERS: Emergency Provider Student in an Organized Health Care Education/Training Program; PCP Family Medicine
DX: U07.1 COVID-19 (principal); C90.00 Multiple myeloma not having achieved remission; I10 Essential (primary) hypertension; Z79.82 Long term (current) use of aspirin; Z79.899 Other long term (current) drug therapy; Z87.891 Personal history of nicotine dependence
CPT/HCPCS: 71045; 71275; 80053; 81001; 83605; 84145; 84484; 85025; 85610; 85730; 87040; 87086; 87635; 93005; 96361; 96374; 96375; 99285; Q9967; A4216; J2405; U0002

== ENCOUNTER 2020-09-14 15:10 | Inpatient (IN) | payer OTHER, SELFPAY ==
[2020-09-08 04:29] VITALS: BMI 31.6
[2020-09-14] VITALS (14 sets, daily range): BP systolic 102–137; BP diastolic 80–104; PULSE 84–142; RESP 18–30; TEMP 36.8–37.3; O2SAT 82–95; BMI 29.8; BMI 29.4; BMI 29.5
--- NOTE | 2020-09-14 15:34 | EKG12_ITS ---
Test Reason : SOB Blood Pressure : / mmHG Vent. Rate : 127 BPM Atrial Rate : 127 BPM P-R Int : 158 ms QRS Dur : 086 ms QT Int : 288 ms P-R-T Axes : 049 010 -05 degrees QTc Int : [address] & T wave abnormality, consider inferior ischemia Abnormal ECG Confirmed by SAULO MCINTYRE, DOMINGA ([id number]), sound editor GARY MCHUGH ([id number]) on 09/17/2020 11:31:53 AM Referred By: JOAN/LE Confirmed By:DOMINGA VERNON MD
--- NOTE | 2020-09-14 15:38 | ED.VIS.GEN ---
History of Present Illness Chief Complaint: Shortness of Breath Informant: Patient Narrative: Patient is a 60-year-old male with a past medical history of multiple myeloma currently undergoing chemotherapy who presents to the emergency department Covid positive for shortness of breath. The symptoms have been present for the past week. His shortness of breath has significantly gotten worse over the past 2 days. He states when he walks a very short distance he becomes very symptomatic and has to rest. He is having some chest wall pain which she has had this entire time on the left side. He has had a nonproductive cough. Denies any nausea/vomiting. He had a temperature up to 102 that has been treating at home with Tylenol. He states he has not been eating or drinking very well and has been mostly sleeping. He has had a few episodes of diarrhea. No leg swelling or calf pain. He has a former smoking history. He states he was put on an antibiotic which she just finished the course of yesterday. Past Medical History - Allergies and Home Meds Allergies/Adverse Reactions: Allergies No Known Allergies Allergy (Verified 09/14/20 15:58) Primary Care Physician: Akil Montesinos III, MD [Primary Care Provider] - Prior records reviewed: Yes Past Medical History: - - Multiple myeloma, hypertension Surgical History: noncontributory, tonsillectomy Smoking Status: Former smoker - Family History Maternal Family History: Reports: No pertinent history Paternal Family History: Reports: No pertinent history Review of Systems All systems negative except as indicated General: Reports: Fever, Malaise. Denies: Sweats Eyes: Denies: Visual changes - bilaterally, Diplopia ENT: Denies: Rhinorrhea, Sore throat Cardiovascular: Reports: Chest pain - Left chest wall. Denies: Palpitations Respiratory: Reports: Dyspnea, Cough, Dyspnea on exertion. Denies: Sputum Gastrointestinal: Reports: Diarrhea. Denies: Abdominal pain, Nausea, Vomiting Genitourinary: Denies: Dysuria, Hematuria, Frequency Musculoskeletal: Denies: Back pain, Extremity Pain Skin: Denies: Rash, Wounds Neurological: Denies: Headache, Weakness, Numbness Physical Exam Vital Signs/Narrative: Vital Signs Temp Pulse Resp BP Pulse Ox 09/14/20 15:11 99.1 F 142 H 24 H 102/80 88 Inital Vital Signs reviewed: Yes General: Well nourished, Well developed, No Acute Distress Head: Normocephalic, Atraumatic Eyes: Perrl, EOMI ENT: Moist mucous membranes, No rhinorrhea Neck: Supple, Nontender Cardiovascular: Regular rhythm, No murmurs, Tachycardia Respiratory: No distress, CTA bilaterally, - - Tachypnea, able to talk in full sentences, has some accessory muscle use Abdomen: Soft, Nontender, Nondistended, Normal bowel sounds Back: Nontender, Normal Inspection Extremities: Nontender, No edema. Negative for: Calf Tenderness Skin: Normal color, No rash Neurological: Alert, Oriented x3, Cranial nerves II-XII grossly intact, Normal Strength, Normal Sensation Psychological: Normal affect, Normal Mood Diagnostic/Tx/Re-eval - Medical Decision Making Patient presents to the emergency department for increased shortness of breath after being diagnosed with coronavirus. Upon arrival to the emergency department he is tachycardic, tachypneic and hypoxic on room air. Despite vital signs he does not appear in any acute distress. Will check basic lab work, EKG, chest x-ray. He did have a CTA of his chest performed 5 days ago which was negative for pulmonary embolism. Patient was tachycardic and her lactic acid was high. We will be very cautious with IV fluids but will give a 500 L bolus. His x-ray does show patchy opacities throughout bilateral lung castro. He did already complete a course of azithromycin and has been on prednisone. We will give a dose of Decadron here. Lab work is consistent with coronavirus with the lymphopenia. Patient has been satting well on 6 L nasal cannula. Given the significant O2 requirement increased will bring him into the hospital for further evaluation and management. Patient understands and is agreeable with this plan. ED Disposition - Plan for ED Patient: Disposition: Acute Care Hospital [facility] Diagnosis: Pneumonia due to COVID-19 virus, Hypoxia Referrals: Akil Montesinos III, MD [Primary Care Provider] -
[2020-09-14] MEDS: Acetaminophen 325 MG Tablet 650 MG PO (16:05)
[2020-09-14 16:21] LABS: Absolute Neutrophil Count 8.6 X10^3/uL (2.0-7.7); Basophil# 0.01 X10^3/uL; Basophil% 0.1 % (0-1); Hematocrit 41.6 % (40-54); Hemoglobin 13.4 g/dL (13.0-16.5); Lymphocyte % 3.3 % (19-41); Mean Corp Hgb Conc 32.2 g/dL (32-36); Mean Corpuscular Hgb 28.9 pg (27.0-32.0); Mean Corpuscular Volume 89.8 fL (80-94); Mean Platelet Vol. 9.8 fl (6.2-12.0); Monocyte# 0.22 X10^3/uL; Monocyte% 2.4 % (0-10); NRBC Flagged by Analyzer 0 % (0-5); Neutrophil % 93.4 % (47-70); POSITIVE DIFFERENTIAL YES; Platelet Count 359 K/mm3 (150-450); RBC Distribution Width CV 14.4 % (11.6-14.6); RBC Distribution Width SD 46.7 fl (35.1-43.9); Red Blood Count 4.63 M/mm3 (4.6-6.2); White Blood Count 9.2 K/mm3 (4.4-11.0)
--- NOTE | 2020-09-14 16:21 | RAD_ITS ---
STUDY: X-RAY CHEST REASON FOR EXAM: Male, 60 years old. sob. test + for covid 1 week ago. chemo last . fever. TECHNIQUE: Single frontal view of the chest. COMPARISON: 09/08/2020 chest x-ray and CT FINDINGS: Bibasilar airspace disease increased. There is no demonstrated pleural abnormality. Normal size heart. Normal mediastinum and chen. Normal visualized pulmonary arteries. Normal visualized aortic arch and descending thoracic aorta. Normal visualized thoracic spine. Normal visualized ribs, clavicles, and shoulders. There is no demonstrated abnormality of the visualized soft tissue structures of the upper abdomen. RAD/Chest 1 View (Portable) IMPRESSION: Bibasilar airspace disease increased Electronically Signed: Iban Andino MD at 17:19 EST , Service support ,
[2020-09-14 16:25] LABS: Differential Indicated SCAN CRITERIA MET
[2020-09-14 16:42] LABS: ALB/GLOB Ratio 0.5 RATIO (0.9-2.4); AST(SGOT) 45 U/L (15-37); Alanine Aminotransfer ALT/SGPT 25 U/L (16-61); Albumin, Serum 2.8 g/dL (3.2-5.0); Alkaline Phosphatase 74 U/L (45-117); Anion Gap 9 (5-15); BUN 23 mg/dL (7-18); BUN/Creat Ratio 22.1 RATIO (10-20); Calcium,Total 8.9 mg/dL (8.5-10.1); Chloride 105 mmol/L (98-107); Creatinine, Serum 1.04 mg/dL (0.70-1.30); EST Glomerular Filtration Rate 77 mL/min (>60); Est Glom Filt Rate - Afr Amer 93 mL/min (>60); Estimated Creatinine Clearance 88.02 ml/min; Globulin 5.7 g/dL (2.2-4.2); Glucose 125 mg/dL (74-106); Potassium 4.6 mmol/L (3.5-5.1); Protein, Total 8.5 g/dL (6.4-8.2); Sodium Level 137 mmol/L (136-145)
[2020-09-14 16:59] LABS: Differential Comment SCANNED; Lactic Acid 2.6 mmol/L (0.4-1.9)
[2020-09-14] MEDS: dexAMETHasone 10 MG/ML Vial IV (17:14)
--- NOTE | 2020-09-14 17:38 | NURSING ---
Dr. Doyle aware of sepsis alert. No antibiotics ordered d/t +Covid.
--- NOTE | 2020-09-14 18:03 | PCM.HP.STD ---
<Grzegorz Arango PA - Last Filed: 09/14/20 18:03> Problem List (1) Acute respiratory failure with hypoxia Status: Acute (2) Pneumonia due to COVID-19 virus Status: Acute (3) Multiple myeloma Status: Chronic (4) Peripheral vascular occlusive disease Status: Chronic (5) Hypertension Status: Chronic History of Present Illness Date of Admission: 09/14/20 Chief Complaint: SOB The patient is a 60 year old M with pmhx of multiple myeloma, htn, who was recently diagnosed a week ago with covid 19 in the ER and subsequently sent home on zithromax and prednisone, who presented to the ER with worsening SOB. Since last presentation the patient has had worsening SOB, cough with sputum production but no hemoptysis, increased fever and chills at home, and bilateral lower chest pain. He has vomiting and diarrhea. No body aches. The patient was found to have hypoxia and is requiring 6lpm O2 supplementation via nasal cannula in the ER. He does not have a hx of lung disease and does not use any home o2 for any reason. In the ER CXR demonstrates BL pna. He had a CTA chest on 09/08 with no PEs. EKG demonstrates sinus tachy. He believes he contracted covid while visiting people in [facility] last week. ] Past Medical History Past Medical History (Chronic Problems): Chronic Problems Multiple myeloma (Chronic) Peripheral vascular occlusive disease (Chronic) Hypertension (Chronic) Malnutrition (Chronic) Delayed wound healing (Chronic) Varicose ulcer of left lower extremity (Chronic) Allergies No Known Allergies Allergy (Verified 09/14/20 15:58) Home Medications: Ambulatory Orders Medication Instructions Recorded Dexamethasone [Decadron] 20 mg PO .COMPLEX 09/14/20 Lisinopril [Prinivil] 10 mg PO DAILY 09/14/20 Surgical History: noncontributory, tonsillectomy Psychiatric History: No pertinent psych hx Lives: With Family Smoking Status: Former smoker Tobacco Use: Non-smoker Alcohol: None Drugs: None - *Family History Maternal History Items: No pertinent history Paternal History Items: No pertinent history Review of Systems Constitutional: Reports: Chills, Fever, Fatigue. Denies: Weight Change HEENT: Denies: Head Aches, Sinus Congestion, Sinus Drainage Cardiovascular: Reports: Chest Pain. Denies: Edema, Light Headedness, Palpitations Respiratory: Reports: Cough, Shortness of Breath, Shortness of breath at rest, Shortness of breath upon exertion, Sputum production Gastrointestinal: Reports: Diarrhea, Nausea, Vomiting. Denies: Abdominal Pain Genitourinary: Denies: Dysuria, Hesitancy, Urgency Musculoskeletal: Denies: Joint Pain, Joint Tenderness, Muscle pain Skin: Denies: Lesions, Rash, Wounds Neurological: Denies: Numbness, Tingling, Focal weakness Psychiatric: Denies: Anxiety, Depression, Homicidal Ideations, Suicidal Ideations Hematologic/ Lymphatic: Denies: Easy Bruising, Easy Bleeding VTE Information - Inpt Only VTE Present on Admission: No VTE Mechan Device Prophylaxis: None VTE Pharm Prophylaxis ordered?: Yes Patient Problems: Active and Suspected Problems Pneumonia due to COVID-19 virus (Acute) Acute respiratory failure with hypoxia (Acute) - Physical Exam Vitals/I&O's: Vital Signs Temp Pulse Resp BP Pulse Ox 99.2 F H 108 H 30 H 111/81 H 93 09/14/20 17:49 09/14/20 17:49 09/14/20 17:49 09/14/20 17:49 09/14/20 17:49 Oxygen Flow Rate (L/min) 6 Oxygen Delivery Method Nasal Cannula Weight: 238 lb 15.697 oz Body Mass Index (BMI) 29.8 General: Alert, Oriented x3, Cooperative HEENT: Atraumatic, PERRLA, EOMI, Normocephalic Neck: Supple, No JVD, Negative Carotid Bruits Lungs: Clear to auscultation, Diminished - severely diminished Cardiovascular: No murmurs, Tachycardic Abdomen: Bowel Sounds Present, Soft, Non Tender Extremities: No edema, Capillary Refill Less than 3 Seconds Skin: No rashes, No breakdown Musculoskeletal: No Tenderness to Palpation of Joints or Extremities Neurological: Cranial nerves II-XII grossly intact Psych/Mental Status: Normal Affect, Appropriate, Alert and oriented to time, place, person, mood and affect Laboratory Results 09/14/20 15:55: WBC 9.2, RBC 4.63, Hgb 13.4, Hct 41.6, MCV 89.8, MCH 28.9, MCHC 32.2, RDW Std Deviation 46.7 H, RDW Coeff of Kerline 14.4, Plt Count 359, MPV 9.8, Immature Gran % (Auto) 0.800, Neut % (Auto) 93.4 H, Lymph % (Auto) 3.3 L, [place] % (Auto) 2.4, Eos % (Auto) 0.0, Baso % (Auto) 0.1, Absolute Neuts (auto) 8.6 H, Absolute Lymphs (auto) 0.30 L, Nucleated RBC % 0, Differential Comment SCANNED 09/14/20 15:55: Sodium 137, Potassium 4.6, Chloride 105, Carbon Dioxide 23.0, Anion Gap 9, BUN 23 H, Creatinine 1.04, Estim Creat Clear Calc 88.02, Est GFR (MDRD) Af Amer 93, Est GFR (MDRD) Non-Af 77, BUN/Creatinine Ratio 22.1 H, Glucose 125 H, Calcium 8.9, Total Bilirubin 0.60, AST 45 H, ALT 25, Alkaline Phosphatase 74, Troponin I < 0.015, Total Protein 8.5 H, Albumin 2.8 L, Globulin 5.7 H, Albumin/Globulin Ratio 0.5 L 09/14/20 15:55: Lactic Acid 2.6 H* Assessment/Plan All Active Problems Pneumonia due to COVID-19 virus (Acute) Acute respiratory failure with hypoxia (Acute) 1. Acute hypoxic respiratory failure 2/2 Covid 19 with BL pna -requiring 6lpm at this point, no hx lung disease or o2 use at home. failed outpatient prednisone/azithromycin. He has worsening BL pna on CXR. He has bl chest pain however he had CTA last week which was negative for PE. He is at elevated risk of PE with covid and hx of multiple myeloma. Obtain D Dimer, ldh, fibrinogin, cpk. Procalc elevated last week. Lactate elevated. No leukocytosis, however he is lymphopenic. EKG shows sinus tachy, troponin is negative. -Start decadron, albuterol, supportive care. -Consult infectious disease. 2. Multiple myeloma - pt treated by Dr. Centeno with unclear IV medication. Request records. 3. HTN - lisinopril DVT ppx: lovenox This patient was seen by Grzegorz Arango PA-C under the supervision of Dr. Klein. <Bry Klein E - Last Filed: 09/14/20 18:53> History of Present Illness The patient is a 60 year old M [] Past Medical History Allergies No Known Allergies Allergy (Verified 09/14/20 15:58) - Physical Exam Vitals/I&O's: Vital Signs Temp Pulse Resp BP Pulse Ox 98.3 F 97 20 H 129/86 H 92 09/14/20 18:12 09/14/20 18:12 09/14/20 18:12 09/14/20 18:12 09/14/20 18:12 Oxygen Flow Rate (L/min) 6 Oxygen Delivery Method Room Air Weight: 238 lb 15.697 oz Body Mass Index (BMI) 29.8 Intake and Output for Last 24 Hours 09/13/20 09/13/20 09/14/20 00:59 23:59 23:59 Intake Total 500 / 500 Balance 500 / 500 Laboratory Results 09/14/20 15:55: WBC 9.2, RBC 4.63, Hgb 13.4, Hct 41.6, MCV 89.8, MCH 28.9, MCHC 32.2, RDW Std Deviation 46.7 H, RDW Coeff of Kerline 14.4, Plt Count 359, MPV 9.8, Immature Gran % (Auto) 0.800, Neut % (Auto) 93.4 H, Lymph % (Auto) 3.3 L, [place] % (Auto) 2.4, Eos % (Auto) 0.0, Baso % (Auto) 0.1, Absolute Neuts (auto) 8.6 H, Absolute Lymphs (auto) 0.30 L, Nucleated RBC % 0, Differential Comment SCANNED 09/14/20 15:55: Sodium 137, Potassium 4.6, Chloride 105, Carbon Dioxide 23.0, Anion Gap 9, BUN 23 H, Creatinine 1.04, Estim Creat Clear Calc 88.02, Est GFR (MDRD) Af Amer 93, Est GFR (MDRD) Non-Af 77, BUN/Creatinine Ratio 22.1 H, Glucose 125 H, Calcium 8.9, Total Bilirubin 0.60, AST 45 H, ALT 25, Alkaline Phosphatase 74, Troponin I < 0.015, Total Protein 8.5 H, Albumin 2.8 L, Globulin 5.7 H, Albumin/Globulin Ratio 0.5 L 09/14/20 15:55: Lactic Acid 2.6 H* Assessment/Plan Hospitalist note: I am seeing this patient in conjunction with Grzegorz Arango. I independently seen and examined the patient. History and physical, laboratory data and imaging studies reviewed and I concur with above admission and treatment plan. Patient presented to the emergency room because of 9 days history of progressively worsening shortness of breath, it is even with minimal exertion, associated with productive cough as well as fever at home and pleuritic bilateral lower chest pain. He was seen in the ED few days ago, he was sent home on Zithromax and prednisone and he came back today because of worsening symptoms. He complained of bilateral lower chest pain, comes on upon coughing and taking a deep breath, pleuritic, mild, not radiating, aggravated by taking a deep breath. He reported fever at home as well. In the emergency department, he was afebrile, tachycardic, blood pressure was stable, was tachypneic, initial pulse ox was 82% on room air which improved to 91% on 6 L. Routine blood work was unremarkable. LFT was unremarkable. Lactic acid was 2.6. EKG revealed sinus tachycardia, otherwise no acute findings. Chest x-ray showed bilateral airspace disease which has been getting worse compared to previous chest x-ray. Patient had CTA chest on September 08, 2020 that showed bilateral diffuse infiltrate more prominent on the right upper lobe, no PE or dissection. He is being admitted for acute bilateral COVID-19 pneumonia complicated by acute hypoxic respiratory failure and severe sepsis. - Physical Exam General: Alert, Oriented x3, Cooperative, mildly short of breath. HEENT: Atraumatic, PERRLA, EOMI. Neck: Supple, No JVD, Negative Carotid Bruits, Trachea Midline, Thyroid Normal. Lungs: Diminished with sounds bilateral, otherwise clear no rhonchi, No wheeze, No rales. Cardiovascular: Regular rate, Regular Rhythm, Normal S1, Normal S2, PMI Normal, tachycardia. Abdomen: Bowel Sounds Present, Soft, Non Tender, Non-Distended, No Hepato-splenomegaly. Extremities: No clubbing, No cyanosis, No edema Skin: No rashes, No breakdown Neurological: Cranial nerves are intact, neuro grossly intact Assessment and plan: #1 acute bilateral COVID-19 pneumonia/severe sepsis: Chest x-ray from today and CTA that was done 6 days ago reviewed. Patient currently is on 6 L of oxygen, he does not wear home oxygen. He was given 1 dose of IV Decadron in the ED and also received IV fluid bolus. Plan: Admit to [place] [id number] floor, isolation precautions, albuterol inhaler as needed, infectious disease and pulmonology consultation, repeat lactic acid in 3 hours, check D-dimer, CPK, pro time and INR, repeat CBC and BMP tomorrow morning, PT OT evaluation and treatment. #2 acute hypoxic respiratory failure: Secondary to #1. Patient is requiring up to 6 L of oxygen. Plan as above. #3 CODE STATUS: Full code, patient wanted full code, intubation, mechanical ventilation and CPR. #4 other chronic medical problems: Stable, continue current medications as above. This note was generated with [employer] dictation software. It may contain incorrect words, spelling, and punctuation that were not noted in checking the note before signing. Inpatient E&M: 03781 Init Hosp L3
[2020-09-14 20:15] LABS: Reflex Lactate? Y
[2020-09-14 20:54] LABS: International Normalized Ratio 1.2; Prothrombin Time (Protime)PT. 14.8 SECONDS (11.7-14.9)
[2020-09-14 21:01] LABS: Fibrinogen > 900 mg/dl (203-444)
[2020-09-14 21:06] LABS: CPK Total, Creatine Kinase 94 U/L (39-308); LDH 570 U/L (87-241)
[2020-09-14 21:11] LABS: D-Dimer Quantitative (DVT/PE) 0.74 FEU/ug/m (0.27-0.49)
[2020-09-14 21:11] LABS: Lactic Acid 1.2 mmol/L (0.4-1.9)
[2020-09-15] VITALS (18 sets, daily range): BP systolic 135–151; BP diastolic 78–93; PULSE 64–83; RESP 20–32; TEMP 36.1–37.1; O2SAT 87–97; BMI 29.4
--- NOTE | 2020-09-15 07:09 | CON.PCM_ITS ---
Reason for Consult Date of Consultation: 09/15/20 Reason for Consultation: Acute hypoxemic respiratory failure secondary to COVID- 19 pneumonia History of Present Illness: The patient is a 60-year-old male, with a history as outlined below, who presented to the emergency department on September 14 with complaints of shortness of breath, subjective fevers and nonproductive cough. The patient had been evaluated on September 08 in the emergency department, at which time, he was initially tested and found to be positive for coronavirus. The patient was able to be discharged home at that time with azithromycin and prednisone. The patient did have a CTA chest completed at that time which showed no evidence for pulmonary embolism, but did demonstrate patchy bilateral groundglass opacities. The patient does have a history of multiple myeloma (currently under treatment by Dr. Centeno) and hypertension. The patient reported that his symptoms have been present now for approximately 1 weeks duration. On presentation to the emergency department, the patient was noted to be afebrile but was tachycardic and tachypneic. He was initially documented to be saturating 88% on room air. D-dimer was not significantly elevated. Chemistry profile was largely unrevealing. Lactate was elevated to 2.6. Troponin was negative. Plain film chest x-ray revealed increasing bibasilar airspace disease. The patient received supplemental IV fluids and was started on Decadron. He was subsequently admitted to the coronavirus cohort unit for further management. Past Medical History Past Medical History (Chronic Problems): Chronic Problems Multiple myeloma (Chronic) Peripheral vascular occlusive disease (Chronic) Hypertension (Chronic) Malnutrition (Chronic) Delayed wound healing (Chronic) Varicose ulcer of left lower extremity (Chronic) Allergies No Known Allergies Allergy (Verified 09/14/20 15:58) Home Medications: Ambulatory Orders Medication Instructions Recorded Dexamethasone [Decadron] 20 mg PO .COMPLEX 09/14/20 Lisinopril [Prinivil] 10 mg PO DAILY 09/14/20 Surgical History: noncontributory, tonsillectomy Psychiatric History: No pertinent psych hx Lives: With Family Smoking Status: Former smoker Tobacco Use: Cigarettes Alcohol: None Drugs: None - *Family History Maternal History Items: No pertinent history Paternal History Items: No pertinent history Review of Systems Constitutional: Reports: Chills, Fever Eyes: Denies: Blurred vision, Double vision HEENT: Denies: Head Aches, Sinus Congestion, Sinus Drainage Cardiovascular: Denies: Chest Pain, Palpitations Respiratory: Reports: Cough, Shortness of Breath Gastrointestinal: Denies: Abdominal Pain, Nausea, Vomiting Genitourinary: Denies: Dysuria Musculoskeletal: Denies: Joint Pain, Joint Tenderness Skin: Denies: Rash, Wounds Neurological: Denies: Numbness, Tingling, Focal weakness Psychiatric: Denies: Anxiety, Depression, Homicidal Ideations, Suicidal Ideations Hematologic/ Lymphatic: Denies: Easy Bruising, Easy Bleeding Patient Problems: Active and Suspected Problems Hypoxia (Acute) Pneumonia due to COVID-19 virus (Acute) Acute respiratory failure with hypoxia (Acute) Objective: The patient's most recent lab work, culture data and imaging studies have all been personally reviewed. Coronavirus PCR was positive on September 08. - Physical Exam Vitals/I&O's: Vital Signs Temp Pulse Resp BP Pulse Ox 97.6 F L 70 20 H 140/90 H 93 09/15/20 03:12 09/15/20 04:07 09/15/20 03:16 09/15/20 03:12 09/15/20 03:12 Oxygen Flow Rate (L/min) 6 Oxygen Delivery Method Nasal Cannula Weight: 235 lb 10.786 oz Body Mass Index (BMI) 29.4 Intake and Output for Last 24 Hours 09/13/20 09/14/20 09/15/20 23:59 23:59 23:59 Intake Total 500 / 500 Output Total 250 / 250 Balance 250 / 250 General: Alert, Cooperative, No apparent distress HEENT: Atraumatic, PERRLA, Normocephalic Oral: No Gingival or Mucosal Lesions/ Ulcerations Neck: Supple, No Nodes, Trachea Midline Lungs: Diminished Cardiovascular: Regular rate, Regular Rhythm Abdomen: Bowel Sounds Present, Soft, Non Tender Extremities: No clubbing, No cyanosis, No edema Skin: No breakdown Musculoskeletal: No Tenderness to Palpation of Joints or Extremities Lymphatic: No Cervical, Supraclavicular, or Inguinal Adenopathy Neurological: Cranial nerves II-XII grossly intact, Neuro grossly intact Psych/Mental Status: Normal Affect Labs (Last 48 Hours) 09/14/20 09/14/20 09/14/20 15:55 15:55 15:55 WBC 9.2 RBC 4.63 Hgb 13.4 Hct 41.6 MCV 89.8 MCH 28.9 MCHC 32.2 RDW Std Deviation 46.7 H RDW Coeff of Kerline 14.4 Plt Count 359 MPV 9.8 Immature Gran % (Auto) 0.800 Neut % (Auto) 93.4 H Lymph % (Auto) 3.3 L [place] % (Auto) 2.4 Eos % (Auto) 0.0 Baso % (Auto) 0.1 Absolute Neuts (auto) 8.6 H Absolute Lymphs (auto) 0.30 L Nucleated RBC % 0 Differential Comment SCANNED PT INR Fibrinogen D-Dimer Quant (PE/DVT) Sodium 137 Potassium 4.6 Chloride 105 Carbon Dioxide 23.0 Anion Gap 9 BUN 23 H Creatinine 1.04 Estim Creat Clear Calc 88.02 Est GFR (MDRD) Af Amer 93 Est GFR (MDRD) Non-Af 77 BUN/Creatinine Ratio 22.1 H Glucose 125 H Lactic Acid 2.6 H* Calcium 8.9 Total Bilirubin 0.60 AST 45 H ALT 25 Alkaline Phosphatase 74 Lactate Dehydrogenase Total Creatine Kinase Troponin I < 0.015 Total Protein 8.5 H Albumin 2.8 L Globulin 5.7 H Albumin/Globulin Ratio 0.5 L 09/14/20 09/14/20 09/14/20 15:55 15:55 20:35 WBC RBC Hgb Hct MCV MCH MCHC RDW Std Deviation RDW Coeff of Kerline Plt Count MPV Immature Gran % (Auto) Neut % (Auto) Lymph % (Auto) [place] % (Auto) Eos % (Auto) Baso % (Auto) Absolute Neuts (auto) Absolute Lymphs (auto) Nucleated RBC % Differential Comment PT 14.8 INR 1.2 Fibrinogen > 900 H D-Dimer Quant (PE/DVT) 0.74 H* Sodium Potassium Chloride Carbon Dioxide Anion Gap BUN Creatinine Estim Creat Clear Calc Est GFR (MDRD) Af Amer Est GFR (MDRD) Non-Af BUN/Creatinine Ratio Glucose Lactic Acid 1.2 Calcium Total Bilirubin AST ALT Alkaline Phosphatase Lactate Dehydrogenase 570 H Total Creatine Kinase 94 Troponin I Total Protein Albumin Globulin Albumin/Globulin Ratio Clinical Impression(s) from Imaging Studies Chest X-Ray 09/14/20 16:21 IMPRESSION: Bibasilar airspace disease increased Electronically Signed: Iban Andino MD at 17:19 EST , Service support , Current Medications Acetaminophen (Acetaminophen 325 Mg Tablet) 650 mg PO Q6H PRN PRN PRN Reason: Pain Score 1-10/Temp > 100.7 F Albuterol Sulfate (Albuterol Sulfate 8 Gm Inhaler (60 Puffs)) 2 puff INHALATION Q4H PRN PRN PRN Reason: Shortness of breath, wheezing Dexamethasone Sodium Phosphate (Dexamethasone 10 Mg/Ml Vial) 6 mg IV DAILY [facility] Enoxaparin Sodium (Enoxaparin 40 Mg/0.4 Ml Syringe) 40 mg SC DAILY [facility] Lisinopril (Lisinopril 10 Mg Tablet) 10 mg PO DAILY [facility] Nutritional Formula (Lactose Free) (Ensure Clear 120 Ml Liquid) 120 ml PO TIDCM [facility] Ondansetron HCl (Ondansetron 4 Mg/2 Ml Vial) 4 mg IV Q8H PRN PRN PRN Reason: NAUSEA/VOMITING Senna/Docusate Sodium (Senna/Docusate Sodium 1 Tablet) 2 tablet PO BID PRN PRN PRN Reason: Constipation Sodium Chloride (0.9% Saline Lock 10 Ml Syringe) 10 - 40 ml IV UD PRN PRN Reason: SALINE FLUSH Zolpidem Tartrate (Zolpidem Tartrate 5 Mg Tablet) 5 mg PO QHS PRN PRN PRN Reason: INSOMNIA Assessment/Plan All Active Problems Hypoxia (Acute) Pneumonia due to COVID-19 virus (Acute) Acute respiratory failure with hypoxia (Acute) RECOMMENDATIONS: 1. Wean supplemental oxygen to maintain saturations at or above 90%. 2. Continue Decadron 6 mg daily x10 days. 3. Send type and screen. We will plan to order convalescent plasma. 4. Start remdesivir. 5. Continue Lovenox for prophylaxis. IMPRESSIONS: 1. Acute hypoxemic respiratory failure secondary to COVID-19 pneumonia The patient presented to the hospital with approximately 1 week of Covid-like symptoms. He is currently maintaining appropriate oxygen saturations on nasal cannula O2. Given his duration of symptoms and underlying multiple myeloma, the patient will be continued on Decadron daily x10 days. In addition, he will be started on remdesivir. Type and screen will be sent, with plans to transfuse convalescent plasma. Continue to wean supplemental oxygen to maintain saturations at or above 90%. 2. History of multiple myeloma on treatment/hypertension Complicates care, management, recovery and prognosis. Continue home medications as indicated. This note was generated with [employer] software. It may contain incorrect words, spelling, and punctuation that were not noted in checking the note before signing. Inpatient E&M: 30731 Init Hosp L3
--- NOTE | 2020-09-15 07:15 | PN_ITS ---
Patient Problems: Active and Suspected Problems Hypoxia (Acute) Pneumonia due to COVID-19 virus (Acute) Acute respiratory failure with hypoxia (Acute) Reason for Visit: Acute COVID-19 pneumonia Subjective: Patient is a 60-year-old gentleman presented with progressive shortness of breath diagnosed with acute COVID-19 pneumonia Objective: GENERAL: cooperative HEENT: Atraumatic; EYES; Anicteric, Normal Conjunctiva NECK; supple, normal thyroid, RESPIRATORY: Diminished to auscultation CARDIOVASCULAR: Regular S1 S2, GI: soft, normoactive bowel sounds, : No Renal angle tenderness; EXTREMITIES: No edema, no clubbing, MUSCULOSKELETAL: no muscle waisting NEURO: Awake; no lateralizing signs. SKIN: No Rash PSYCH; Flat affect Vitals/I&O's: Vital Signs Temp Pulse Resp BP Pulse Ox 97.6 F L 70 20 H 140/90 H 93 09/15/20 03:12 09/15/20 04:07 09/15/20 03:16 09/15/20 03:12 09/15/20 03:12 Oxygen Flow Rate (L/min) 6 Oxygen Delivery Method Nasal Cannula Weight: 106.9 kg Body Mass Index (BMI) 29.4 Intake and Output for Last 24 Hours 09/13/20 09/14/20 09/15/20 23:59 23:59 23:59 Intake Total 500 / 500 Output Total 250 / 250 Balance 250 / 250 Laboratory Results 09/14/20 15:55: WBC 9.2, RBC 4.63, Hgb 13.4, Hct 41.6, MCV 89.8, MCH 28.9, MCHC 32.2, RDW Std Deviation 46.7 H, RDW Coeff of Kerline 14.4, Plt Count 359, MPV 9.8, Immature Gran % (Auto) 0.800, Neut % (Auto) 93.4 H, Lymph % (Auto) 3.3 L, [place] % (Auto) 2.4, Eos % (Auto) 0.0, Baso % (Auto) 0.1, Absolute Neuts (auto) 8.6 H, Absolute Lymphs (auto) 0.30 L, Nucleated RBC % 0, Differential Comment SCANNED 09/14/20 15:55: Sodium 137, Potassium 4.6, Chloride 105, Carbon Dioxide 23.0, Anion Gap 9, BUN 23 H, Creatinine 1.04, Estim Creat Clear Calc 88.02, Est GFR (MDRD) Af Amer 93, Est GFR (MDRD) Non-Af 77, BUN/Creatinine Ratio 22.1 H, Glucose 125 H, Calcium 8.9, Total Bilirubin 0.60, AST 45 H, ALT 25, Alkaline Phosphatase 74, Troponin I < 0.015, Total Protein 8.5 H, Albumin 2.8 L, Globulin 5.7 H, Albumin/Globulin Ratio 0.5 L 09/14/20 15:55: Lactic Acid 2.6 H* 09/14/20 15:55: PT 14.8, INR 1.2, Fibrinogen > 900 H, D-Dimer Quant (PE/DVT) 0.74 H* 09/14/20 15:55: Lactate Dehydrogenase 570 H, Total Creatine Kinase 94 09/14/20 20:35: Lactic Acid 1.2 Current Medications Acetaminophen (Acetaminophen 325 Mg Tablet) 650 mg PO Q6H PRN PRN PRN Reason: Pain Score 1-10/Temp > 100.7 F Albuterol Sulfate (Albuterol Sulfate 8 Gm Inhaler (60 Puffs)) 2 puff INHALATION Q4H PRN PRN PRN Reason: Shortness of breath, wheezing Dexamethasone Sodium Phosphate (Dexamethasone 10 Mg/Ml Vial) 6 mg IV DAILY [facility] Enoxaparin Sodium (Enoxaparin 40 Mg/0.4 Ml Syringe) 40 mg SC DAILY [facility] Lisinopril (Lisinopril 10 Mg Tablet) 10 mg PO DAILY [facility] Nutritional Formula (Lactose Free) (Ensure Clear 120 Ml Liquid) 120 ml PO TIDCM [facility] Ondansetron HCl (Ondansetron 4 Mg/2 Ml Vial) 4 mg IV Q8H PRN PRN PRN Reason: NAUSEA/VOMITING Senna/Docusate Sodium (Senna/Docusate Sodium 1 Tablet) 2 tablet PO BID PRN PRN PRN Reason: Constipation Sodium Chloride (0.9% Saline Lock 10 Ml Syringe) 10 - 40 ml IV UD PRN PRN Reason: SALINE FLUSH Zolpidem Tartrate (Zolpidem Tartrate 5 Mg Tablet) 5 mg PO QHS PRN PRN PRN Reason: INSOMNIA STROKE Vital Signs/Narrative: Vital Signs Pulse Resp 09/15/20 04:07 70 09/15/20 03:16 20 H Medical Necessity - Tobacco Use Smoking Status: Former smoker Tobacco Use: Cigarettes Assessment/Plan All Active Problems Hypoxia (Acute) Pneumonia due to COVID-19 virus (Acute) Acute respiratory failure with hypoxia (Acute) Patient is a 60-year-old gentleman presented with progressive shortness of breath diagnosed with acute COVID-19 pneumonia 1. Acute COVID-19 pneumonia ?Patient admitted to regular nursing floor. Imaging studies on admission demonstrated increased bibasilar airspace disease patient started on remdesivir as well as Decadron. Patient requiring high flow oxygen. Currently saturating mid 80s on 5 L with plans to bump up his oxygen to 10 L. Consult was also placed to pulmonary medicine 2. Acute hypoxic respiratory failure ?Secondary to above management as discussed 3. Severe sepsis -secondary to acute COVID-19 pneumonia management as discussed above 4. Multiple myeloma ?Patient managed by Dr. Jiménez as outpatient 5. Hypertension - Blood pressure controlled, home medications continued with dose adjustment as needed 6. DVT prophylaxis - On enoxaparin Inpatient E&M: 84783 [facility] Hosp L3
[2020-09-15 09:12] LABS: Alkaline Phosphatase 70 U/L (45-117)
[2020-09-15] MEDS: Ensure Clear 120 ML Liquid PO (10:32)
[2020-09-15] MEDS: Enoxaparin 40 MG/0.4 ML Syringe SC (10:34)
[2020-09-15] MEDS: Lisinopril 10 MG Tablet PO (10:34)
[2020-09-15] MEDS: 0.9% Saline Lock 10 ML Syringe IV (10:34)
[2020-09-15] MEDS: dexAMETHasone 10 MG/ML Vial 6 MG IV (10:35)
--- NOTE | 2020-09-15 10:42 | PCM.HP.ID ---
Problem List (1) Pneumonia due to COVID-19 virus Status: Acute Reason for Consult: covid Consulted by: Dr. Ordaz History of Present Illness: The patient is a 60 year old M with h/o multiple myeloma, presented with 1 week of headache, aches, progressive cough/SOB, and chest pain. Came to ED a few days ago, given azithro and pred. Some nausea and diarrhea, decreased appetite. Lives with who is feeling fine so far. Full ROS performed and neg except as noted above. - Medical History Past Medical History (Chronic Problems): Chronic Problems Multiple myeloma (Chronic) Peripheral vascular occlusive disease (Chronic) Hypertension (Chronic) Malnutrition (Chronic) Delayed wound healing (Chronic) Varicose ulcer of left lower extremity (Chronic) Allergies/Adverse Reactions: Allergies No Known Allergies Allergy (Verified 09/14/20 15:58) Home Medications: Ambulatory Orders Medication Instructions Recorded Dexamethasone [Decadron] 20 mg PO .COMPLEX 09/14/20 Lisinopril [Prinivil] 10 mg PO DAILY 09/14/20 - Social History SMOKING STATUS:: Former smoker Vital Signs Temp Pulse Resp BP Pulse Ox 97.0 F L 68 20 H 139/93 H 91 09/15/20 10:30 09/15/20 10:30 09/15/20 10:30 09/15/20 10:30 09/15/20 10:30 Oxygen Flow Rate (L/min) 10 Oxygen Delivery Method Nasal Cannula Weight: 106.9 kg Body Mass Index (BMI) 29.4 Laboratory Tests Past 24 Hrs 09/14/20 09/14/20 09/14/20 15:55 15:55 15:55 WBC 9.2 RBC 4.63 Hgb 13.4 Hct 41.6 MCV 89.8 MCH 28.9 MCHC 32.2 RDW Std Deviation 46.7 H RDW Coeff of Kerline 14.4 Plt Count 359 MPV 9.8 Immature Gran % (Auto) 0.800 Neut % (Auto) 93.4 H Lymph % (Auto) 3.3 L [place] % (Auto) 2.4 Eos % (Auto) 0.0 Baso % (Auto) 0.1 Absolute Neuts (auto) 8.6 H Absolute Lymphs (auto) 0.30 L Nucleated RBC % 0 Differential Comment SCANNED PT INR Fibrinogen D-Dimer Quant (PE/DVT) Sodium 137 Potassium 4.6 Chloride 105 Carbon Dioxide 23.0 Anion Gap 9 BUN 23 H Creatinine 1.04 Estim Creat Clear Calc 88.02 Est GFR (MDRD) Af Amer 93 Est GFR (MDRD) Non-Af 77 BUN/Creatinine Ratio 22.1 H Glucose 125 H Lactic Acid 2.6 H* Calcium 8.9 Total Bilirubin 0.60 AST 45 H ALT 25 Alkaline Phosphatase 74 Lactate Dehydrogenase Total Creatine Kinase Troponin I < 0.015 Total Protein 8.5 H Albumin 2.8 L Globulin 5.7 H Albumin/Globulin Ratio 0.5 L Blood Type Antibody Screen 09/14/20 09/14/20 09/14/20 15:55 15:55 20:35 WBC RBC Hgb Hct MCV MCH MCHC RDW Std Deviation RDW Coeff of Kerline Plt Count MPV Immature Gran % (Auto) Neut % (Auto) Lymph % (Auto) [place] % (Auto) Eos % (Auto) Baso % (Auto) Absolute Neuts (auto) Absolute Lymphs (auto) Nucleated RBC % Differential Comment PT 14.8 INR 1.2 Fibrinogen > 900 H D-Dimer Quant (PE/DVT) 0.74 H* Sodium Potassium Chloride Carbon Dioxide Anion Gap BUN Creatinine Estim Creat Clear Calc Est GFR (MDRD) Af Amer Est GFR (MDRD) Non-Af BUN/Creatinine Ratio Glucose Lactic Acid 1.2 Calcium Total Bilirubin AST ALT Alkaline Phosphatase Lactate Dehydrogenase 570 H Total Creatine Kinase 94 Troponin I Total Protein Albumin Globulin Albumin/Globulin Ratio Blood Type Antibody Screen 09/15/20 09/15/20 08:20 08:20 WBC RBC Hgb Hct MCV MCH MCHC RDW Std Deviation RDW Coeff of Kerline Plt Count MPV Immature Gran % (Auto) Neut % (Auto) Lymph % (Auto) [place] % (Auto) Eos % (Auto) Baso % (Auto) Absolute Neuts (auto) Absolute Lymphs (auto) Nucleated RBC % Differential Comment PT INR Fibrinogen D-Dimer Quant (PE/DVT) Sodium Potassium Chloride Carbon Dioxide Anion Gap BUN Creatinine Estim Creat Clear Calc Est GFR (MDRD) Af Amer Est GFR (MDRD) Non-Af BUN/Creatinine Ratio Glucose Lactic Acid Calcium Total Bilirubin AST ALT Alkaline Phosphatase 70 Lactate Dehydrogenase Total Creatine Kinase Troponin I Total Protein Albumin Globulin Albumin/Globulin Ratio Blood Type O POSITIVE Antibody Screen Cancelled - Other Studies Radiology: [] reviewed Other Studies: [] Route of nutrition/ use of supplements: [] Nutritional Intake: [] IV Site: [] Starks Catheter: [] - Physical Exam General: Alert, Oriented x3, Cooperative HEENT: Atraumatic, PERRLA, EOMI Neck: Supple, No Nodes Lungs: Diminished Cardiovascular: Regular rate, Regular Rhythm Abdomen: Bowel Sounds Present, Soft, Non Tender, Non-Distended Extremities: No edema Skin: No rashes IV Site: Peripheral, without redness Musculoskeletal: No Tenderness to Palpation of Joints or Extremities Neurological: Cranial nerves II-XII grossly intact - Assessment/Plan Antibiotics: [] Assessment/Plan: [] Active and Suspected Problems Hypoxia (Acute) Pneumonia due to COVID-19 virus (Acute) Acute respiratory failure with hypoxia (Acute) covid with hypoxic resp failure - on dex, agree with remdesivir and plasma. Recommended get tested and quarantine. On 6L. Lactate elevated. Will follow, thank you
--- NOTE | 2020-09-15 12:01 | PCM.NTREPORT ---
Nutrition Therapy Report - History Nutrition Services has been consulted to:: Manage nutrient details of diet order Current diet / nutrition support order:: cardiac, ensure clear 120mL TID - Anthropometric Measurements Height:: 6 ft 3 in Weight:: 106.9 kg Body Mass Index (BMI):: 29.4 - Relevant Labs Relevant Labs:: RDW Std Deviation 46.7 fl (35.1-43.9) H 09/14/20 15:55 Neut % (Auto) 93.4 % (47-70) H 09/14/20 15:55 Lymph % (Auto) 3.3 % (19-41) L 09/14/20 15:55 Absolute Neuts (auto) 8.6 X10^3/uL (2.0-7.7) H 09/14/20 15:55 Absolute Lymphs (auto) 0.30 X10^3/uL (0.83-4.51) L 09/14/20 15:55 Fibrinogen > 900 mg/dl (203-444) H 09/14/20 15:55 D-Dimer Quant (PE/DVT) 0.74 FEU/ug/m (0.27-0.49) H* 09/14/20 15:55 BUN 23 mg/dL (7-18) H 09/14/20 15:55 BUN/Creatinine Ratio 22.1 RATIO (10-20) H 09/14/20 15:55 Glucose 125 mg/dL (74-106) H 09/14/20 15:55 Lactic Acid 2.6 mmol/L (0.4-1.9) H* 09/14/20 15:55 AST 45 U/L (15-37) H 09/14/20 15:55 Lactate Dehydrogenase 570 U/L (87-241) H 09/14/20 15:55 Total Protein 8.5 g/dL (6.4-8.2) H 09/14/20 15:55 Albumin 2.8 g/dL (3.2-5.0) L 09/14/20 15:55 Globulin 5.7 g/dL (2.2-4.2) H 09/14/20 15:55 Albumin/Globulin Ratio 0.5 RATIO (0.9-2.4) L 09/14/20 15:55 - Assessment Food / Nutrition-Related History:: Pt currently in isolation d/t COVID-19. Spoke w/ pt via room phone. Pt reports a decline in appetite over past few months and reports zero appetite over the past 3-4 days d/t acute illness. Pt states his appetite is currently not too bad and had fair intake of breakfast this AM. No special diet at home. Does not drink ONS but is supposed to. Reports UBW as 260# w/ unintentional wt loss over past 1-2 months. CBW 235.7#-24.3#/9.3% wt loss, significant for malnutrition. - Nutrition Diagnosis Problem / Etiology / Signs & Symptoms (PES):: Pt w/ severe, chronic malnutrition related to increased energy needs w/ multiple myeloma and recent COVID-19 infection as evidenced by estimated PO intake meeting <75% of pt's estimated nutritional needs for greater than 1 month, 24.3#/9.3% unintentional wt loss over past 1-2 months. Evidence of Malnutrition Exists:: Yes Severe PCM:: Chronic Illness - Nutrition Intervention Nutrition Prescription:: [id number] calories, 100-128 g protein/day - Food / Nutrient Delivery Interventions Summary of nutrition intervention:: Pt agreeable to ONS. Currently w/ ensure clear 120mL TID on JAN, will change to ensure enlive 240mL TID w/ meals to cluster nursing care and provide additional calories/protein if consumed. Will liberalize diet to regular d/t malnutrition. Nutrition support ordered as / adjusted to:: regular diet, 240mL ensure enlive w/ meals - MNT Monitoring Further MNT monitoring and evaluation required?: Yes MNT Follow-up in:: 3-5 days
--- NOTE | 2020-09-15 14:43 | CASEMGMT ---
RN BRAULIO called patient in room for initial transition planning/care coordination assessment. RN BRAULIO introduced self and role at [facility]. Patient is alert and oriented. Patient willing to participate in assessment and is able to answer all questions appropriately. Care providers, pharmacy, and demographics verified. Patient wishes to discharge home, denies need for home health at this time. Patient states he has no further needs or concerns at this time. CM to follow for discharge planning needs that may arise. PCP: [facility]: Taryn oncologist Preferred Pharmacy: [facility] with [facility] retail at discharge. Insurance: MMO Prescription Benefit: yes Living Will/HPOA: yes, Malena MERINO: Living Arrangements: Patient lives in a 1 story home with 2 steps and railing to enter the home. Patient is able to isolate at home with and have family bring groceries and supplies at home. Transportation: self/ DME/HHC: Patient states he has shower chair, BSC, walker at home. Patient is ok with [employer] for DME at discharge. Will monitor for need for home oxygen at discharge. Disposition Plan: Patient to discharge home with family support and follow-up plans in place. Will monitor for additional needs at discharge. Nancy KOCH, RN, CM
[2020-09-15] MEDS: Albuterol Sulfate 8 gm Inhaler (60 puffs) 2 PUFF INHALATION (23:53)
[2020-09-16] VITALS (15 sets, daily range): BP systolic 133–160; BP diastolic 78–92; PULSE 63–90; RESP 20; TEMP 35.6–36.9; O2SAT 90–95
[2020-09-16 06:46] LABS: Absolute Lymphocyte Count 0.33 X10^3/uL (0.83-4.51); Absolute Neutrophil Count 13.3 X10^3/uL (2.0-7.7); Basophil# 0.01 X10^3/uL; Basophil% 0.1 % (0-1); Hematocrit 36.9 % (40-54); Hemoglobin 11.7 g/dL (13.0-16.5); Lymphocyte # 0.33 X10^3/ul (4.0); Lymphocyte % 2.4 % (19-41); Mean Corp Hgb Conc 31.7 g/dL (32-36); Mean Corpuscular Hgb 28.7 pg (27.0-32.0); Mean Corpuscular Volume 90.4 fL (80-94); Mean Platelet Vol. 9.8 fl (6.2-12.0); Monocyte# 0.27 X10^3/uL; Monocyte% 1.9 % (0-10); NRBC Flagged by Analyzer 0 % (0-5); Neutrophil # 13.27 X10^3/uL (2.7-7.7); Neutrophil % 94.5 % (47-70); POSITIVE DIFFERENTIAL YES; POSITIVE MORPHOLOGY YES; Platelet Count 361 K/mm3 (150-450); RBC Distribution Width CV 14.3 % (11.6-14.6); RBC Distribution Width SD 47.7 fl (35.1-43.9); Red Blood Count 4.08 M/mm3 (4.6-6.2)
[2020-09-16 06:49] LABS: Differential Indicated SCAN CRITERIA MET
[2020-09-16 07:03] LABS: Differential Comment SCANNED
[2020-09-16 07:15] LABS: ALB/GLOB Ratio 0.5 RATIO (0.9-2.4); AST(SGOT) 22 U/L (15-37); Alanine Aminotransfer ALT/SGPT 21 U/L (16-61); Albumin, Serum 2.4 g/dL (3.2-5.0); Alkaline Phosphatase 73 U/L (45-117); Anion Gap 10 (5-15); BUN 24 mg/dL (7-18); BUN/Creat Ratio 29.6 RATIO (10-20); Calcium,Total 8.6 mg/dL (8.5-10.1); Chloride 103 mmol/L (98-107); Creatinine, Serum 0.81 mg/dL (0.70-1.30); EST Glomerular Filtration Rate 102 mL/min (>60); Est Glom Filt Rate - Afr Amer 124 mL/min (>60); Estimated Creatinine Clearance 113.01 ml/min; Globulin 4.8 g/dL (2.2-4.2); Glucose 135 mg/dL (74-106); Potassium 3.8 mmol/L (3.5-5.1); Protein, Total 7.2 g/dL (6.4-8.2); Sodium Level 136 mmol/L (136-145)
--- NOTE | 2020-09-16 07:20 | PCM.PN.HOSP ---
Patient Problems: Active and Suspected Problems Hypoxia (Acute) Pneumonia due to COVID-19 virus (Acute) Acute respiratory failure with hypoxia (Acute) Reason for Visit: Acute COVID-19 pneumonia Subjective: Seen still requires high flow oxygen. Patient started on remdesivir. Has been typed and crossmatched for convalescent plasma. Objective: GENERAL: cooperative HEENT: Atraumatic; EYES; Anicteric, Normal Conjunctiva NECK; supple, normal thyroid, RESPIRATORY: Diminished to auscultation CARDIOVASCULAR: Regular S1 S2, GI: soft, normoactive bowel sounds, : No Renal angle tenderness; EXTREMITIES: No edema, no clubbing, MUSCULOSKELETAL: no muscle waisting NEURO: Awake; no lateralizing signs. SKIN: No Rash PSYCH; Flat affect Vitals/I&O's: Vital Signs Temp Pulse Resp BP Pulse Ox 98.5 F 66 20 H 133/78 H 94 09/16/20 04:35 09/16/20 05:05 09/16/20 04:35 09/16/20 04:35 09/16/20 04:35 Oxygen Flow Rate (L/min) 10 Oxygen Delivery Method Nasal Cannula Weight: 106.9 kg Body Mass Index (BMI) 29.4 Intake and Output for Last 24 Hours 09/14/20 09/15/20 09/16/20 23:59 23:59 23:59 Intake Total 500 / 500 1460 / 1460 200 / 200 Output Total 250 / 250 1200 / 1200 225 / 225 Balance 250 / 250 260 / 260 -25 / -25 Laboratory Results 09/15/20 08:20: Blood Type O POSITIVE, Antibody Screen Cancelled 09/15/20 08:20: Alkaline Phosphatase 70 09/16/20 06:04: WBC 14.0 H, RBC 4.08 L, Hgb 11.7 L, Hct 36.9 L, MCV 90.4, MCH 28.7, MCHC 31.7 L, RDW Std Deviation 47.7 H, RDW Coeff of Kerline 14.3, Plt Count 361, MPV 9.8, Immature Gran % (Auto) 1.100 H, Neut % (Auto) 94.5 H, Lymph % (Auto) 2.4 L, [place] % (Auto) 1.9, Eos % (Auto) 0.0, Baso % (Auto) 0.1, Absolute Neuts (auto) 13.3 H, Absolute Lymphs (auto) 0.33 L, Nucleated RBC % 0, Differential Comment SCANNED 09/16/20 06:04: Sodium 136, Potassium 3.8, Chloride 103, Carbon Dioxide 23.0, Anion Gap 10, BUN 24 H, Creatinine 0.81, Estim Creat Clear Calc 113.01, Est GFR (MDRD) Af Amer 124, Est GFR (MDRD) Non-Af 102, BUN/Creatinine Ratio 29.6 H, Glucose 135 H, Calcium 8.6, Total Bilirubin 0.30, AST 22, ALT 21, Alkaline Phosphatase 73, Total Protein 7.2, Albumin 2.4 L, Globulin 4.8 H, Albumin/Globulin Ratio 0.5 L Current Medications Acetaminophen (Acetaminophen 325 Mg Tablet) 650 mg PO Q6H PRN PRN PRN Reason: Pain Score 1-10/Temp > 100.7 F Albuterol Sulfate (Albuterol Sulfate 8 Gm Inhaler (60 Puffs)) 2 puff INHALATION Q4H PRN PRN PRN Reason: Shortness of breath, wheezing Last Admin: 09/15/20 23:53 Dose: 2 puff Documented by: Dexamethasone Sodium Phosphate (Dexamethasone 10 Mg/Ml Vial) 6 mg IV DAILY [facility] Last Admin: 09/15/20 10:35 Dose: 6 mg Documented by: Enoxaparin Sodium (Enoxaparin 40 Mg/0.4 Ml Syringe) 40 mg SC DAILY [facility] Last Admin: 09/15/20 10:34 Dose: 40 mg Documented by: Remdesivir 100 mg/ Sodium (Chloride) 250 mls @ 125 mls/hr IV DAILY [facility]; Protocol Stop: 09/19/20 11:59 Lisinopril (Lisinopril 10 Mg Tablet) 10 mg PO DAILY [facility] Last Admin: 09/15/20 10:34 Dose: 10 mg Documented by: Ondansetron HCl (Ondansetron 4 Mg/2 Ml Vial) 4 mg IV Q8H PRN PRN PRN Reason: NAUSEA/VOMITING Senna/Docusate Sodium (Senna/Docusate Sodium 1 Tablet) 2 tablet PO BID PRN PRN PRN Reason: Constipation Sodium Chloride (0.9% Saline Lock 10 Ml Syringe) 10 - 40 ml IV UD PRN PRN Reason: SALINE FLUSH Last Admin: 11/03/20 10:34 Dose: 10 ml Documented by: Zolpidem Tartrate (Zolpidem Tartrate 5 Mg Tablet) 5 mg PO QHS PRN PRN PRN Reason: INSOMNIA STROKE Vital Signs/Narrative: Vital Signs Temp Pulse Resp BP Pulse Ox 09/16/20 05:05 66 09/16/20 04:35 98.5 F 67 20 H 133/78 H 94 Medical Necessity - Tobacco Use Smoking Status: Former smoker Tobacco Use: Cigarettes Assessment/Plan All Active Problems Hypoxia (Acute) Pneumonia due to COVID-19 virus (Acute) Acute respiratory failure with hypoxia (Acute) Patient is a 60-year-old gentleman presented with progressive shortness of breath diagnosed with acute COVID-19 pneumonia 1. Acute COVID-19 pneumonia ?Patient admitted to regular nursing floor. Imaging studies on admission demonstrated increased bibasilar airspace disease patient started on remdesivir as well as Decadron. Patient requiring high flow oxygen. Currently saturating mid 80s on 5 L with plans to bump up his oxygen to 10 L. Consult was also placed to pulmonary medicine ?09/16/2020 seen still requires high flow oxygen. Patient started on remdesivir. Has been typed and crossmatched for convalescent plasma. 2. Acute hypoxic respiratory failure ?Secondary to above management as discussed 3. Severe sepsis -secondary to acute COVID-19 pneumonia management as discussed above 4. Multiple myeloma ?Patient managed by Dr. Centeno as outpatient 5. Hypertension - Blood pressure controlled, home medications continued with dose adjustment as needed 6. DVT prophylaxis - On enoxaparin Inpatient E&M: [id number] Subs Hosp L2
[2020-09-16] MEDS: 0.9% Saline Lock 10 ML Syringe IV ×2 (09:15→21:25)
[2020-09-16] MEDS: dexAMETHasone 10 MG/ML Vial 6 MG IV (10:13)
[2020-09-16] MEDS: Enoxaparin 40 MG/0.4 ML Syringe SC (10:15)
[2020-09-16] MEDS: Lisinopril 10 MG Tablet PO (10:15)
--- NOTE | 2020-09-16 11:57 | PCM.PN.PUL ---
Patient Problems: Active and Suspected Problems Hypoxia (Acute) Pneumonia due to COVID-19 virus (Acute) Acute respiratory failure with hypoxia (Acute) Subjective: The patient was seen and examined at the bedside this morning. Events from the last 24 hours have been reviewed. The patient is currently afebrile, hemodynamically stable and maintaining appropriate oxygen saturations on 10 L/min via nasal cannula. The patient did receive convalescent plasma yesterday and remains on Decadron and remdesivir. Objective: The patient's most recent lab work, culture data and imaging studies have all been personally reviewed. Coronavirus PCR was positive on September 08. - Physical Exam Vitals/I&O's: Vital Signs Temp Pulse Resp BP Pulse Ox 96.1 F L 66 20 H 143/85 H 92 09/16/20 09:19 09/16/20 09:19 09/16/20 09:19 09/16/20 09:19 09/16/20 09:19 Oxygen Flow Rate (L/min) 10 Oxygen Delivery Method Nasal Cannula Weight: 235 lb 10.786 oz Body Mass Index (BMI) 29.4 Intake and Output for Last 24 Hours 09/14/20 09/15/20 09/16/20 23:59 23:59 23:59 Intake Total 500 / 500 1460 / 1460 700 / 700 Output Total 250 / 250 1200 / 1200 375 / 375 Balance 250 / 250 260 / 260 325 / 325 General: Alert, Cooperative HEENT: Atraumatic, Normocephalic Oral: No Gingival or Mucosal Lesions/ Ulcerations Neck: Supple, No Nodes, Trachea Midline Lungs: Diminished Cardiovascular: Regular rate, Regular Rhythm Abdomen: Bowel Sounds Present, Soft, Non Tender Extremities: No clubbing, No cyanosis, No edema Skin: No breakdown Musculoskeletal: No Tenderness to Palpation of Joints or Extremities Lymphatic: No Cervical, Supraclavicular, or Inguinal Adenopathy Neurological: Neuro grossly intact Psych/Mental Status: Normal Affect, Appropriate Labs (Last 48 Hours) 09/14/20 09/14/20 09/14/20 15:55 15:55 15:55 WBC 9.2 RBC 4.63 Hgb 13.4 Hct 41.6 MCV 89.8 MCH 28.9 MCHC 32.2 RDW Std Deviation 46.7 H RDW Coeff of Kerline 14.4 Plt Count 359 MPV 9.8 Immature Gran % (Auto) 0.800 Neut % (Auto) 93.4 H Lymph % (Auto) 3.3 L [place] % (Auto) 2.4 Eos % (Auto) 0.0 Baso % (Auto) 0.1 Absolute Neuts (auto) 8.6 H Absolute Lymphs (auto) 0.30 L Nucleated RBC % 0 Differential Comment SCANNED PT INR Fibrinogen D-Dimer Quant (PE/DVT) Sodium 137 Potassium 4.6 Chloride 105 Carbon Dioxide 23.0 Anion Gap 9 BUN 23 H Creatinine 1.04 Estim Creat Clear Calc 88.02 Est GFR (MDRD) Af Amer 93 Est GFR (MDRD) Non-Af 77 BUN/Creatinine Ratio 22.1 H Glucose 125 H Lactic Acid 2.6 H* Calcium 8.9 Total Bilirubin 0.60 AST 45 H ALT 25 Alkaline Phosphatase 74 Lactate Dehydrogenase Total Creatine Kinase Troponin I < 0.015 Total Protein 8.5 H Albumin 2.8 L Globulin 5.7 H Albumin/Globulin Ratio 0.5 L Blood Type Antibody Screen 09/14/20 09/14/20 09/14/20 15:55 15:55 20:35 WBC RBC Hgb Hct MCV MCH MCHC RDW Std Deviation RDW Coeff of Kerline Plt Count MPV Immature Gran % (Auto) Neut % (Auto) Lymph % (Auto) [place] % (Auto) Eos % (Auto) Baso % (Auto) Absolute Neuts (auto) Absolute Lymphs (auto) Nucleated RBC % Differential Comment PT 14.8 INR 1.2 Fibrinogen > 900 H D-Dimer Quant (PE/DVT) 0.74 H* Sodium Potassium Chloride Carbon Dioxide Anion Gap BUN Creatinine Estim Creat Clear Calc Est GFR (MDRD) Af Amer Est GFR (MDRD) Non-Af BUN/Creatinine Ratio Glucose Lactic Acid 1.2 Calcium Total Bilirubin AST ALT Alkaline Phosphatase Lactate Dehydrogenase 570 H Total Creatine Kinase 94 Troponin I Total Protein Albumin Globulin Albumin/Globulin Ratio Blood Type Antibody Screen 09/15/20 09/15/20 09/16/20 08:20 08:20 06:04 WBC 14.0 H RBC 4.08 L Hgb 11.7 L Hct 36.9 L MCV 90.4 MCH 28.7 MCHC 31.7 L RDW Std Deviation 47.7 H RDW Coeff of Kerline 14.3 Plt Count 361 MPV 9.8 Immature Gran % (Auto) 1.100 H Neut % (Auto) 94.5 H Lymph % (Auto) 2.4 L [place] % (Auto) 1.9 Eos % (Auto) 0.0 Baso % (Auto) 0.1 Absolute Neuts (auto) 13.3 H Absolute Lymphs (auto) 0.33 L Nucleated RBC % 0 Differential Comment SCANNED PT INR Fibrinogen D-Dimer Quant (PE/DVT) Sodium Potassium Chloride Carbon Dioxide Anion Gap BUN Creatinine Estim Creat Clear Calc Est GFR (MDRD) Af Amer Est GFR (MDRD) Non-Af BUN/Creatinine Ratio Glucose Lactic Acid Calcium Total Bilirubin AST ALT Alkaline Phosphatase 70 Lactate Dehydrogenase Total Creatine Kinase Troponin I Total Protein Albumin Globulin Albumin/Globulin Ratio Blood Type O POSITIVE Antibody Screen Cancelled 09/16/20 06:04 WBC RBC Hgb Hct MCV MCH MCHC RDW Std Deviation RDW Coeff of Kerline Plt Count MPV Immature Gran % (Auto) Neut % (Auto) Lymph % (Auto) [place] % (Auto) Eos % (Auto) Baso % (Auto) Absolute Neuts (auto) Absolute Lymphs (auto) Nucleated RBC % Differential Comment PT INR Fibrinogen D-Dimer Quant (PE/DVT) Sodium 136 Potassium 3.8 Chloride 103 Carbon Dioxide 23.0 Anion Gap 10 BUN 24 H Creatinine 0.81 Estim Creat Clear Calc 113.01 Est GFR (MDRD) Af Amer 124 Est GFR (MDRD) Non-Af 102 BUN/Creatinine Ratio 29.6 H Glucose 135 H Lactic Acid Calcium 8.6 Total Bilirubin 0.30 AST 22 ALT 21 Alkaline Phosphatase 73 Lactate Dehydrogenase Total Creatine Kinase Troponin I Total Protein 7.2 Albumin 2.4 L Globulin 4.8 H Albumin/Globulin Ratio 0.5 L Blood Type Antibody Screen Clinical Impression(s) from Imaging Studies Chest X-Ray 09/14/20 16:21 IMPRESSION: Bibasilar airspace disease increased Electronically Signed: Iban Andino MD at 17:19 EST , Service support , Current Medications Acetaminophen (Acetaminophen 325 Mg Tablet) 650 mg PO Q6H PRN PRN PRN Reason: Pain Score 1-10/Temp > 100.7 F Albuterol Sulfate (Albuterol Sulfate 8 Gm Inhaler (60 Puffs)) 2 puff INHALATION Q4H PRN PRN PRN Reason: Shortness of breath, wheezing Last Admin: 09/15/20 23:53 Dose: 2 puff Documented by: Dexamethasone Sodium Phosphate (Dexamethasone 10 Mg/Ml Vial) 6 mg IV DAILY [facility] Last Admin: 09/16/20 10:13 Dose: 6 mg Documented by: Enoxaparin Sodium (Enoxaparin 40 Mg/0.4 Ml Syringe) 40 mg SC DAILY [facility] Last Admin: 09/16/20 10:15 Dose: 40 mg Documented by: Remdesivir 100 mg/ Sodium (Chloride) 250 mls @ 125 mls/hr IV DAILY [facility]; Protocol Stop: 09/19/20 11:59 Last Admin: 09/16/20 09:14 Dose: 125 mls/hr Documented by: Lisinopril (Lisinopril 10 Mg Tablet) 10 mg PO DAILY [facility] Last Admin: 09/16/20 10:15 Dose: 10 mg Documented by: Ondansetron HCl (Ondansetron 4 Mg/2 Ml Vial) 4 mg IV Q8H PRN PRN PRN Reason: NAUSEA/VOMITING Senna/Docusate Sodium (Senna/Docusate Sodium 1 Tablet) 2 tablet PO BID PRN PRN PRN Reason: Constipation Sodium Chloride (0.9% Saline Lock 10 Ml Syringe) 10 - 40 ml IV UD PRN PRN Reason: SALINE FLUSH Last Admin: 09/16/20 09:15 Dose: 10 ml Documented by: Zolpidem Tartrate (Zolpidem Tartrate 5 Mg Tablet) 5 mg PO QHS PRN PRN PRN Reason: INSOMNIA Medical Necessity - Tobacco Use Smoking Status: Former smoker Tobacco Use: Cigarettes Assessment/Plan All Active Problems Hypoxia (Acute) Pneumonia due to COVID-19 virus (Acute) Acute respiratory failure with hypoxia (Acute) RECOMMENDATIONS: 1. Wean supplemental oxygen to maintain saturations at or above 90%. 2. Continue Decadron 6 mg daily x10 days. 3. Continue remdesivir. 4. Continue Lovenox for prophylaxis. IMPRESSIONS: 1. Acute hypoxemic respiratory failure secondary to COVID-19 pneumonia The patient presented to the hospital with approximately 1 week of Covid-like symptoms. He is currently maintaining appropriate oxygen saturations on nasal cannula O2. Given his duration of symptoms and underlying multiple myeloma, the patient received convalescent plasma and was started on remdesivir and Decadron. Continue to wean supplemental oxygen to maintain saturations at or above 90%. 2. History of multiple myeloma on treatment/hypertension Complicates care, management, recovery and prognosis. Continue home medications as indicated. This note was generated with [employer] dictation software. It may contain incorrect words, spelling, and punctuation that were not noted in checking the note before signing. Inpatient E&M: 77939 Subs Hosp L3
--- NOTE | 2020-09-16 16:55 | PN.ID_ITS ---
Patient Problems: Active and Suspected Problems Hypoxia (Acute) Pneumonia due to COVID-19 virus (Acute) Acute respiratory failure with hypoxia (Acute) Subjective: Feeling better, no fever, mild nausea - Physical Exam Vitals/I&O's: Vital Signs Temp Pulse Resp BP Pulse Ox 97.4 F L 72 20 H 160/92 H 92 09/16/20 16:05 09/16/20 16:05 09/16/20 16:05 09/16/20 16:05 09/16/20 16:05 Oxygen Flow Rate (L/min) 10 Oxygen Delivery Method Nasal Cannula Weight: 106.9 kg Body Mass Index (BMI) 29.4 Intake and Output for Last 24 Hours 09/14/20 09/15/20 09/16/20 23:59 23:59 23:59 Intake Total 500 / 500 1460 / 1460 1700 / 1700 Output Total 250 / 250 1200 / 1200 625 / 625 Balance 250 / 250 260 / 260 1075 / 1075 General: Alert, Cooperative, No apparent distress Lungs: Diminished Cardiovascular: Regular rate, Regular Rhythm Abdomen: Soft, Non Tender, Non-Distended Skin: No rashes Laboratory Results 09/16/20 06:04: WBC 14.0 H, RBC 4.08 L, Hgb 11.7 L, Hct 36.9 L, MCV 90.4, MCH 28.7, MCHC 31.7 L, RDW Std Deviation 47.7 H, RDW Coeff of Kerline 14.3, Plt Count 361, MPV 9.8, Immature Gran % (Auto) 1.100 H, Neut % (Auto) 94.5 H, Lymph % (Auto) 2.4 L, [place] % (Auto) 1.9, Eos % (Auto) 0.0, Baso % (Auto) 0.1, Absolute Neuts (auto) 13.3 H, Absolute Lymphs (auto) 0.33 L, Nucleated RBC % 0, Differential Comment SCANNED 09/16/20 06:04: Sodium 136, Potassium 3.8, Chloride 103, Carbon Dioxide 23.0, Anion Gap 10, BUN 24 H, Creatinine 0.81, Estim Creat Clear Calc 113.01, Est GFR (MDRD) Af Amer 124, Est GFR (MDRD) Non-Af 102, BUN/Creatinine Ratio 29.6 H, Glucose 135 H, Calcium 8.6, Total Bilirubin 0.30, AST 22, ALT 21, Alkaline Phosphatase 73, Total Protein 7.2, Albumin 2.4 L, Globulin 4.8 H, Albumin/Globulin Ratio 0.5 L Current Medications Acetaminophen (Acetaminophen 325 Mg Tablet) 650 mg PO Q6H PRN PRN PRN Reason: Pain Score 1-10/Temp > 100.7 F Albuterol Sulfate (Albuterol Sulfate 8 Gm Inhaler (60 Puffs)) 2 puff INHALATION Q4H PRN PRN PRN Reason: Shortness of breath, wheezing Last Admin: 09/15/20 23:53 Dose: 2 puff Documented by: Dexamethasone Sodium Phosphate (Dexamethasone 10 Mg/Ml Vial) 6 mg IV DAILY [facility] Last Admin: 09/16/20 10:13 Dose: 6 mg Documented by: Enoxaparin Sodium (Enoxaparin 40 Mg/0.4 Ml Syringe) 40 mg SC DAILY [facility] Last Admin: 09/16/20 10:15 Dose: 40 mg Documented by: Remdesivir 100 mg/ Sodium (Chloride) 250 mls @ 125 mls/hr IV DAILY [facility]; Protocol Stop: 09/19/20 11:59 Last Infusion: 09/16/20 11:14 Dose: Infused Documented by: Lisinopril (Lisinopril 10 Mg Tablet) 10 mg PO DAILY [facility] Last Admin: 09/16/20 10:15 Dose: 10 mg Documented by: Ondansetron HCl (Ondansetron 4 Mg/2 Ml Vial) 4 mg IV Q8H PRN PRN PRN Reason: NAUSEA/VOMITING Senna/Docusate Sodium (Senna/Docusate Sodium 1 Tablet) 2 tablet PO BID PRN PRN PRN Reason: Constipation Sodium Chloride (0.9% Saline Lock 10 Ml Syringe) 10 - 40 ml IV UD PRN PRN Reason: SALINE FLUSH Last Admin: 09/16/20 09:15 Dose: 10 ml Documented by: Zolpidem Tartrate (Zolpidem Tartrate 5 Mg Tablet) 5 mg PO QHS PRN PRN PRN Reason: INSOMNIA Medical Necessity - Tobacco Use Smoking Status: Former smoker Tobacco Use: Cigarettes Route of nutrition/ use of supplements: [] Nutritional Intake: [] IV Site: [] Starks Catheter: [] - Assessment/Plan Antibiotics: [] Assessment/Plan: [] Active and Suspected Problems Hypoxia (Acute) Pneumonia due to COVID-19 virus (Acute) Acute respiratory failure with hypoxia (Acute) covid with hypoxic resp failure - on dex, remdesivir and received 09/15 plasma. On 10L O2, feeling better. Will follow
[2020-09-17] VITALS (15 sets, daily range): BP systolic 132–165; BP diastolic 89–105; PULSE 63–101; RESP 20–28; TEMP 36.1–36.7; O2SAT 90–94
--- NOTE | 2020-09-17 07:22 | PN_ITS ---
Patient Problems: Active and Suspected Problems Hypoxia (Acute) Pneumonia due to COVID-19 virus (Acute) Acute respiratory failure with hypoxia (Acute) Reason for Visit: Acute COVID-19 pneumonia Subjective: Patient seen, still requires high flow oxygen. Patient desaturates easily and had to be placed on a minimum of 12 L to participate in physical therapy. Objective: GENERAL: cooperative HEENT: Atraumatic; EYES; Anicteric, Normal Conjunctiva NECK; supple, normal thyroid, RESPIRATORY: Diminished to auscultation CARDIOVASCULAR: Regular S1 S2, GI: soft, normoactive bowel sounds, : No Renal angle tenderness; EXTREMITIES: No edema, no clubbing, MUSCULOSKELETAL: no muscle waisting NEURO: Awake; no lateralizing signs. SKIN: No Rash PSYCH; Flat affect Vitals/I&O's: Vital Signs Temp Pulse Resp BP Pulse Ox 97.8 F 67 20 H 147/89 H 92 09/17/20 05:42 09/17/20 05:42 09/17/20 05:42 09/17/20 05:42 09/17/20 05:42 Oxygen Flow Rate (L/min) 12 Oxygen Delivery Method Nasal Cannula Weight: 106.9 kg Body Mass Index (BMI) 29.4 Intake and Output for Last 24 Hours 09/15/20 09/16/20 09/17/20 23:59 23:59 23:59 Intake Total 1460 / 1460 2150 / 2150 200 / 200 Output Total 1200 / 1200 625 / 625 750 / 750 Balance 260 / 260 1525 / 1525 -550 / -550 Microbiology Past 72 Hours 09/14/20 15:55 Blood Culture (Wb) - Anticubital Left Blood Culture - Preliminary No growth in 48 hours. Current Medications Acetaminophen (Acetaminophen 325 Mg Tablet) 650 mg PO Q6H PRN PRN PRN Reason: Pain Score 1-10/Temp > 100.7 F Albuterol Sulfate (Albuterol Sulfate 8 Gm Inhaler (60 Puffs)) 2 puff INHALATION Q4H PRN PRN PRN Reason: Shortness of breath, wheezing Last Admin: 09/15/20 23:53 Dose: 2 puff Documented by: Dexamethasone Sodium Phosphate (Dexamethasone 10 Mg/Ml Vial) 6 mg IV DAILY [facility] Last Admin: 09/16/20 10:13 Dose: 6 mg Documented by: Enoxaparin Sodium (Enoxaparin 40 Mg/0.4 Ml Syringe) 40 mg SC DAILY [facility] Last Admin: 09/16/20 10:15 Dose: 40 mg Documented by: Remdesivir 100 mg/ Sodium (Chloride) 250 mls @ 125 mls/hr IV DAILY [facility]; Protocol Stop: 09/19/20 11:59 Last Infusion: 09/16/20 11:14 Dose: Infused Documented by: Lisinopril (Lisinopril 10 Mg Tablet) 10 mg PO DAILY [facility] Last Admin: 09/16/20 10:15 Dose: 10 mg Documented by: Ondansetron HCl (Ondansetron 4 Mg/2 Ml Vial) 4 mg IV Q8H PRN PRN PRN Reason: NAUSEA/VOMITING Senna/Docusate Sodium (Senna/Docusate Sodium 1 Tablet) 2 tablet PO BID PRN PRN PRN Reason: Constipation Sodium Chloride (0.9% Saline Lock 10 Ml Syringe) 10 - 40 ml IV UD PRN PRN Reason: SALINE FLUSH Last Admin: 09/16/20 21:25 Dose: 10 ml Documented by: Zolpidem Tartrate (Zolpidem Tartrate 5 Mg Tablet) 5 mg PO QHS PRN PRN PRN Reason: INSOMNIA STROKE Vital Signs/Narrative: Vital Signs Temp Pulse Resp BP Pulse Ox 09/17/20 05:42 97.8 F 67 20 H 147/89 H 92 09/17/20 04:19 97.6 F L 74 20 H 149/93 H 91 Medical Necessity - Tobacco Use Smoking Status: Former smoker Tobacco Use: Cigarettes Assessment/Plan All Active Problems Hypoxia (Acute) Pneumonia due to COVID-19 virus (Acute) Acute respiratory failure with hypoxia (Acute) Patient is a 60-year-old gentleman presented with progressive shortness of breath diagnosed with acute COVID-19 pneumonia 1. Acute COVID-19 pneumonia ?Patient admitted to regular nursing floor. Imaging studies on admission demonstrated increased bibasilar airspace disease patient started on remdesivir as well as Decadron. Patient requiring high flow oxygen. Currently saturating mid 80s on 5 L with plans to bump up his oxygen to 10 L. Consult was also placed to pulmonary medicine ?09/16/2020 seen still requires high flow oxygen. Patient started on remdesivir. Received convalescent plasma. 09/17/2020; Still requires high flow oxygen. Patient desaturates easily and had to be placed on a minimum of 12 L to participate in physical therapy. 2. Acute hypoxic respiratory failure ?Secondary to above management as discussed 3. Severe sepsis -secondary to acute COVID-19 pneumonia management as discussed above 4. Multiple myeloma ?Patient managed by Dr. Centeno as outpatient 5. Hypertension - Blood pressure controlled, home medications continued with dose adjustment as needed 6. DVT prophylaxis - On enoxaparin Inpatient E&M: 02225 Subs Hosp L2
--- NOTE | 2020-09-17 07:37 | PCM.PN.PUL ---
Patient Problems: Active and Suspected Problems Hypoxia (Acute) Pneumonia due to COVID-19 virus (Acute) Acute respiratory failure with hypoxia (Acute) Subjective: The patient was seen and examined at the bedside this morning. Events from the last 24 hours have been reviewed. The patient is currently afebrile, hemodynamically stable and maintaining appropriate oxygen saturations on 12 L/min via nasal cannula. The patient has already received convalescent plasma and remains on both Decadron and remdesivir. The patient is currently documented to be overall net +1.4 L for the hospital admission. Renal and liver function are within normal limits. Objective: The patient's most recent lab work, culture data and imaging studies have all been personally reviewed. Coronavirus PCR was positive on September 08. Blood cultures have shown no growth to date. - Physical Exam Vitals/I&O's: Vital Signs Temp Pulse Resp BP Pulse Ox 97.8 F 67 20 H 147/89 H 92 09/17/20 05:42 09/17/20 05:59 09/17/20 05:42 09/17/20 05:42 09/17/20 05:42 Oxygen Flow Rate (L/min) 12 Oxygen Delivery Method Nasal Cannula Weight: 235 lb 10.786 oz Body Mass Index (BMI) 29.4 Intake and Output for Last 24 Hours 09/15/20 09/16/20 09/17/20 23:59 23:59 23:59 Intake Total 1460 / 1460 2150 / 2150 200 / 200 Output Total 1200 / 1200 625 / 625 750 / 750 Balance 260 / 260 1525 / 1525 -550 / -550 General: Alert, Cooperative, No apparent distress HEENT: Atraumatic, PERRLA, Normocephalic Oral: No Gingival or Mucosal Lesions/ Ulcerations Neck: Supple, No Nodes, Trachea Midline Lungs: No rhonchi, No wheeze, No rales, Diminished Cardiovascular: Regular rate, Regular Rhythm Abdomen: Bowel Sounds Present, Soft, Non Tender Extremities: No clubbing, No cyanosis, No edema Skin: No breakdown Musculoskeletal: No Tenderness to Palpation of Joints or Extremities Lymphatic: No Cervical, Supraclavicular, or Inguinal Adenopathy Neurological: Cranial nerves II-XII grossly intact, Neuro grossly intact Psych/Mental Status: Normal Affect Labs (Last 48 Hours) 09/15/20 09/15/20 09/16/20 08:20 08:20 06:04 WBC 14.0 H RBC 4.08 L Hgb 11.7 L Hct 36.9 L MCV 90.4 MCH 28.7 MCHC 31.7 L RDW Std Deviation 47.7 H RDW Coeff of Kerline 14.3 Plt Count 361 MPV 9.8 Immature Gran % (Auto) 1.100 H Neut % (Auto) 94.5 H Lymph % (Auto) 2.4 L [place] % (Auto) 1.9 Eos % (Auto) 0.0 Baso % (Auto) 0.1 Absolute Neuts (auto) 13.3 H Absolute Lymphs (auto) 0.33 L Nucleated RBC % 0 Differential Comment SCANNED Sodium Potassium Chloride Carbon Dioxide Anion Gap BUN Creatinine Estim Creat Clear Calc Est GFR (MDRD) Af Amer Est GFR (MDRD) Non-Af BUN/Creatinine Ratio Glucose Calcium Total Bilirubin AST ALT Alkaline Phosphatase 70 Total Protein Albumin Globulin Albumin/Globulin Ratio Blood Type O POSITIVE Antibody Screen Cancelled 09/16/20 06:04 WBC RBC Hgb Hct MCV MCH MCHC RDW Std Deviation RDW Coeff of Kerline Plt Count MPV Immature Gran % (Auto) Neut % (Auto) Lymph % (Auto) [place] % (Auto) Eos % (Auto) Baso % (Auto) Absolute Neuts (auto) Absolute Lymphs (auto) Nucleated RBC % Differential Comment Sodium 136 Potassium 3.8 Chloride 103 Carbon Dioxide 23.0 Anion Gap 10 BUN 24 H Creatinine 0.81 Estim Creat Clear Calc 113.01 Est GFR (MDRD) Af Amer 124 Est GFR (MDRD) Non-Af 102 BUN/Creatinine Ratio 29.6 H Glucose 135 H Calcium 8.6 Total Bilirubin 0.30 AST 22 ALT 21 Alkaline Phosphatase 73 Total Protein 7.2 Albumin 2.4 L Globulin 4.8 H Albumin/Globulin Ratio 0.5 L Blood Type Antibody Screen Microbiology 09/14/20 15:55 Blood Culture (Wb) - Anticubital Right Blood Culture - Preliminary No growth in 48 hours. 09/14/20 15:55 Blood Culture (Wb) - Anticubital Left Blood Culture - Preliminary No growth in 48 hours. Clinical Impression(s) from Imaging Studies Chest X-Ray 09/14/20 16:21 IMPRESSION: Bibasilar airspace disease increased Electronically Signed: Iban Andino MD at 17:19 EST , Service support , Current Medications Acetaminophen (Acetaminophen 325 Mg Tablet) 650 mg PO Q6H PRN PRN PRN Reason: Pain Score 1-10/Temp > 100.7 F Albuterol Sulfate (Albuterol Sulfate 8 Gm Inhaler (60 Puffs)) 2 puff INHALATION Q4H PRN PRN PRN Reason: Shortness of breath, wheezing Last Admin: 09/15/20 23:53 Dose: 2 puff Documented by: Dexamethasone Sodium Phosphate (Dexamethasone 10 Mg/Ml Vial) 6 mg IV DAILY [facility] Last Admin: 09/16/20 10:13 Dose: 6 mg Documented by: Enoxaparin Sodium (Enoxaparin 40 Mg/0.4 Ml Syringe) 40 mg SC DAILY [facility] Last Admin: 09/16/20 10:15 Dose: 40 mg Documented by: Remdesivir 100 mg/ Sodium (Chloride) 250 mls @ 125 mls/hr IV DAILY [facility]; Protocol Stop: 09/19/20 11:59 Last Infusion: 09/16/20 11:14 Dose: Infused Documented by: Lisinopril (Lisinopril 10 Mg Tablet) 10 mg PO DAILY [facility] Last Admin: 09/16/20 10:15 Dose: 10 mg Documented by: Ondansetron HCl (Ondansetron 4 Mg/2 Ml Vial) 4 mg IV Q8H PRN PRN PRN Reason: NAUSEA/VOMITING Senna/Docusate Sodium (Senna/Docusate Sodium 1 Tablet) 2 tablet PO BID PRN PRN PRN Reason: Constipation Sodium Chloride (0.9% Saline Lock 10 Ml Syringe) 10 - 40 ml IV UD PRN PRN Reason: SALINE FLUSH Last Admin: 09/16/20 21:25 Dose: 10 ml Documented by: Zolpidem Tartrate (Zolpidem Tartrate 5 Mg Tablet) 5 mg PO QHS PRN PRN PRN Reason: INSOMNIA Medical Necessity - Tobacco Use Smoking Status: Former smoker Tobacco Use: Cigarettes Assessment/Plan All Active Problems Hypoxia (Acute) Pneumonia due to COVID-19 virus (Acute) Acute respiratory failure with hypoxia (Acute) RECOMMENDATIONS: 1. Wean supplemental oxygen to maintain saturations at or above 90%. 2. Continue Decadron 6 mg daily x10 days. 3. Continue remdesivir. 4. Continue Lovenox for prophylaxis. IMPRESSIONS: 1. Acute hypoxemic respiratory failure secondary to COVID-19 pneumonia The patient presented to the hospital with approximately 1 week of Covid-like symptoms. He is currently maintaining appropriate oxygen saturations on nasal cannula O2. Given his duration of symptoms and underlying multiple myeloma, the patient received convalescent plasma and was started on remdesivir and Decadron. Continue to wean supplemental oxygen to maintain saturations at or above 90%. Liver and renal function remain within normal limits. If volume status begins to increase, will consider gentle diuresis. 2. History of multiple myeloma on treatment/hypertension Complicates care, management, recovery and prognosis. Continue home medications as indicated. This note was generated with [employer] dictation software. It may contain incorrect words, spelling, and punctuation that were not noted in checking the note before signing. Inpatient E&M: 23680 [facility] Hosp L3
[2020-09-17] MEDS: dexAMETHasone 10 MG/ML Vial 6 MG IV (09:54)
[2020-09-17] MEDS: Enoxaparin 40 MG/0.4 ML Syringe SC (09:54)
[2020-09-17] MEDS: 0.9% Saline Lock 10 ML Syringe IV ×2 (09:54→11:03)
[2020-09-17] MEDS: Lisinopril 10 MG Tablet PO (09:55)
[2020-09-18] VITALS (24 sets, daily range): BP systolic 135–158; BP diastolic 87–98; PULSE 70–104; RESP 20–30; TEMP 35.8–37.3; O2SAT 81–97
[2020-09-18] MEDS: 0.9% Saline Lock 10 ML Syringe IV ×3 (04:04→11:08)
--- NOTE | 2020-09-18 07:08 | PN_ITS ---
Patient Problems: Active and Suspected Problems Hypoxia (Acute) Pneumonia due to COVID-19 virus (Acute) Acute respiratory failure with hypoxia (Acute) Subjective: The patient was seen and examined at the bedside this morning. Events from the last 24 hours have been reviewed. The patient is currently afebrile, hemodynamically stable and maintaining appropriate oxygen saturations on 15 L/min. The patient has already received convalescent plasma and remains on Decadron and remdesivir. The patient denies any significant shortness of breath but does continue to have a nonproductive cough. Objective: The patient's most recent lab work, culture data and imaging studies have all been personally reviewed. Coronavirus PCR was positive on September 08. - Physical Exam Vitals/I&O's: Vital Signs Temp Pulse Resp BP Pulse Ox 97.2 F L 73 28 H 158/93 H 93 09/18/20 05:27 09/18/20 06:16 09/18/20 06:16 09/18/20 05:27 09/18/20 06:16 Oxygen Flow Rate (L/min) 15 Oxygen Delivery Method Non-Rebreather Weight: 235 lb 10.786 oz Body Mass Index (BMI) 29.4 Intake and Output for Last 24 Hours 09/16/20 09/17/20 09/18/20 23:59 23:59 23:59 Intake Total 2150 / 2150 750 / 750 Output Total 625 / 625 2425 / 2425 275 / 275 Balance 1525 / 1525 -1675 / -1675 -275 / -275 General: Alert, Oriented x3, Cooperative, No apparent distress HEENT: Atraumatic, PERRLA, Normocephalic Oral: No Gingival or Mucosal Lesions/ Ulcerations Neck: Supple, No Nodes, Trachea Midline Lungs: No rhonchi, No wheeze, No rales, Diminished Cardiovascular: Regular rate, Regular Rhythm Abdomen: Bowel Sounds Present, Soft, Non Tender Extremities: No clubbing, No cyanosis, No edema Skin: No breakdown Musculoskeletal: No Tenderness to Palpation of Joints or Extremities Neurological: Cranial nerves II-XII grossly intact, Neuro grossly intact Psych/Mental Status: Normal Affect, Appropriate Labs (Last 48 Hours) 09/16/20 06:04 Sodium 136 Potassium 3.8 Chloride 103 Carbon Dioxide 23.0 Anion Gap 10 BUN 24 H Creatinine 0.81 Estim Creat Clear Calc 113.01 Est GFR (MDRD) Af Amer 124 Est GFR (MDRD) Non-Af 102 BUN/Creatinine Ratio 29.6 H Glucose 135 H Calcium 8.6 Total Bilirubin 0.30 AST 22 ALT 21 Alkaline Phosphatase 73 Total Protein 7.2 Albumin 2.4 L Globulin 4.8 H Albumin/Globulin Ratio 0.5 L Microbiology 09/14/20 15:55 Blood Culture (Wb) - Anticubital Right Blood Culture - Preliminary No growth in 48 hours. 09/14/20 15:55 Blood Culture (Wb) - Anticubital Left Blood Culture - Preliminary No growth in 48 hours. Clinical Impression(s) from Imaging Studies Chest X-Ray 09/14/20 16:21 IMPRESSION: Bibasilar airspace disease increased Electronically Signed: Iban Andino MD at 17:19 EST , Service support , Current Medications Acetaminophen (Acetaminophen 325 Mg Tablet) 650 mg PO Q6H PRN PRN PRN Reason: Pain Score 1-10/Temp > 100.7 F Albuterol Sulfate (Albuterol Sulfate 8 Gm Inhaler (60 Puffs)) 2 puff INHALATION Q4H PRN PRN PRN Reason: Shortness of breath, wheezing Last Admin: 09/15/20 23:53 Dose: 2 puff Documented by: Dexamethasone Sodium Phosphate (Dexamethasone 10 Mg/Ml Vial) 6 mg IV DAILY [facility] Last Admin: 09/17/20 09:54 Dose: 6 mg Documented by: Enoxaparin Sodium (Enoxaparin 40 Mg/0.4 Ml Syringe) 40 mg SC DAILY [facility] Last Admin: 09/17/20 09:54 Dose: 40 mg Documented by: Remdesivir 100 mg/ Sodium (Chloride) 250 mls @ 125 mls/hr IV DAILY [facility]; Protocol Stop: 09/19/20 11:59 Last Infusion: 09/17/20 13:03 Dose: Infused Documented by: Lisinopril (Lisinopril 10 Mg Tablet) 10 mg PO DAILY [facility] Last Admin: 09/17/20 09:55 Dose: 10 mg Documented by: Ondansetron HCl (Ondansetron 4 Mg/2 Ml Vial) 4 mg IV Q8H PRN PRN PRN Reason: NAUSEA/VOMITING Senna/Docusate Sodium (Senna/Docusate Sodium 1 Tablet) 2 tablet PO BID PRN PRN PRN Reason: Constipation Sodium Chloride (0.9% Saline Lock 10 Ml Syringe) 10 - 40 ml IV UD PRN PRN Reason: SALINE FLUSH Last Admin: 09/18/20 04:04 Dose: 10 ml Documented by: Zolpidem Tartrate (Zolpidem Tartrate 5 Mg Tablet) 5 mg PO QHS PRN PRN PRN Reason: INSOMNIA Medical Necessity - Tobacco Use Smoking Status: Former smoker Tobacco Use: Cigarettes Assessment/Plan All Active Problems Hypoxia (Acute) Pneumonia due to COVID-19 virus (Acute) Acute respiratory failure with hypoxia (Acute) RECOMMENDATIONS: 1. Wean supplemental oxygen to maintain saturations at or above 90%. 2. Check liver function profile and BMP. 3. Continue Decadron 6 mg daily x10 days. 4. Continue remdesivir. 5. Continue Lovenox for prophylaxis. 6. Administer IV Lasix x1 today. IMPRESSIONS: 1. Acute hypoxemic respiratory failure secondary to COVID-19 pneumonia The patient presented to the hospital with approximately 1 week of Covid-like symptoms. He is currently maintaining appropriate oxygen saturations on Airvo heated high flow. Given his duration of symptoms and underlying multiple myeloma, the patient received convalescent plasma and was started on remdesivir and Decadron. Continue to wean supplemental oxygen to maintain saturations at or above 90%. Check BMP and hepatic function profile this morning. Administer IV Lasix today as well. Encourage incentive spirometer use while in bed. 2. History of multiple myeloma on treatment/hypertension Complicates care, management, recovery and prognosis. Continue home medications as indicated. This note was generated with [employer] dictation software. It may contain incorrect words, spelling, and punctuation that were not noted in checking the note before signing. Inpatient E&M: [id number] [facility] Hosp L3
--- NOTE | 2020-09-18 07:12 | PCM.PN.HOSP ---
Patient Problems: Active and Suspected Problems Hypoxia (Acute) Pneumonia due to COVID-19 virus (Acute) Acute respiratory failure with hypoxia (Acute) Reason for Visit: Acute COVID-19 pneumonia Subjective: No improvement in patient's condition. Patient had to be switched to Airvo due to increasing oxygen requirement. Objective: GENERAL: cooperative HEENT: Atraumatic; EYES; Anicteric, Normal Conjunctiva NECK; supple, normal thyroid, RESPIRATORY: Diminished to auscultation CARDIOVASCULAR: Regular S1 S2, GI: soft, normoactive bowel sounds, : No Renal angle tenderness; EXTREMITIES: No edema, no clubbing, MUSCULOSKELETAL: no muscle waisting NEURO: Awake; no lateralizing signs. SKIN: No Rash PSYCH; Flat affect Vitals/I&O's: Vital Signs Temp Pulse Resp BP Pulse Ox 97.2 F L 73 28 H 158/93 H 93 09/18/20 05:27 09/18/20 06:16 09/18/20 06:16 09/18/20 05:27 09/18/20 06:16 Oxygen Flow Rate (L/min) 15 Oxygen Delivery Method Non-Rebreather Weight: 106.9 kg Body Mass Index (BMI) 29.4 Intake and Output for Last 24 Hours 09/16/20 09/17/20 09/18/20 23:59 23:59 23:59 Intake Total 2150 / 2150 750 / 750 Output Total 625 / 625 2425 / 2425 275 / 275 Balance 1525 / 1525 -1675 / -1675 -275 / -275 Microbiology Past 72 Hours 09/14/20 15:55 Blood Culture (Wb) - Anticubital Right Blood Culture - Preliminary No growth in 48 hours. 09/14/20 15:55 Blood Culture (Wb) - Anticubital Left Blood Culture - Preliminary No growth in 48 hours. Current Medications Acetaminophen (Acetaminophen 325 Mg Tablet) 650 mg PO Q6H PRN PRN PRN Reason: Pain Score 1-10/Temp > 100.7 F Albuterol Sulfate (Albuterol Sulfate 8 Gm Inhaler (60 Puffs)) 2 puff INHALATION Q4H PRN PRN PRN Reason: Shortness of breath, wheezing Last Admin: 09/15/20 23:53 Dose: 2 puff Documented by: Dexamethasone Sodium Phosphate (Dexamethasone 10 Mg/Ml Vial) 6 mg IV DAILY DIONNE Last Admin: 09/17/20 09:54 Dose: 6 mg Documented by: Enoxaparin Sodium (Enoxaparin 40 Mg/0.4 Ml Syringe) 40 mg SC DAILY [facility] Last Admin: 09/17/20 09:54 Dose: 40 mg Documented by: Remdesivir 100 mg/ Sodium (Chloride) 250 mls @ 125 mls/hr IV DAILY [facility]; Protocol Stop: 09/19/20 11:59 Last Infusion: 09/17/20 13:03 Dose: Infused Documented by: Lisinopril (Lisinopril 10 Mg Tablet) 10 mg PO DAILY [facility] Last Admin: 09/17/20 09:55 Dose: 10 mg Documented by: Ondansetron HCl (Ondansetron 4 Mg/2 Ml Vial) 4 mg IV Q8H PRN PRN PRN Reason: NAUSEA/VOMITING Senna/Docusate Sodium (Senna/Docusate Sodium 1 Tablet) 2 tablet PO BID PRN PRN PRN Reason: Constipation Sodium Chloride (0.9% Saline Lock 10 Ml Syringe) 10 - 40 ml IV UD PRN PRN Reason: SALINE FLUSH Last Admin: 09/18/20 04:04 Dose: 10 ml Documented by: Zolpidem Tartrate (Zolpidem Tartrate 5 Mg Tablet) 5 mg PO QHS PRN PRN PRN Reason: INSOMNIA STROKE Vital Signs/Narrative: Vital Signs Temp Pulse Resp BP Pulse Ox 09/18/20 06:16 73 28 H 93 09/18/20 05:47 86 09/18/20 05:27 97.2 F L 76 28 H 158/93 H 94 09/18/20 04:04 98.1 F 86 28 H 150/98 H 94 09/18/20 03:49 30 H 90 09/18/20 03:37 97.6 F L 87 30 H 142/94 H 81 Medical Necessity - Tobacco Use Smoking Status: Former smoker Tobacco Use: Cigarettes Assessment/Plan All Active Problems Hypoxia (Acute) Pneumonia due to COVID-19 virus (Acute) Acute respiratory failure with hypoxia (Acute) Patient is a 60-year-old gentleman presented with progressive shortness of breath diagnosed with acute COVID-19 pneumonia 1. Acute COVID-19 pneumonia ?Patient admitted to regular nursing floor. Imaging studies on admission demonstrated increased bibasilar airspace disease patient started on remdesivir as well as Decadron. Patient requiring high flow oxygen. Currently saturating mid 80s on 5 L with plans to bump up his oxygen to 10 L. Consult was also placed to pulmonary medicine ?09/16/2020 seen still requires high flow oxygen. Patient started on remdesivir. Received convalescent plasma. 09/17/2020; Still requires high flow oxygen. Patient desaturates easily and had to be placed on a minimum of 12 L to participate in physical therapy. -09/18/2020 No improvement in patient's condition. Patient had to be switched to Airvo due to increasing oxygen requirement. 2. Acute hypoxic respiratory failure ?Secondary to above management as discussed 3. Severe sepsis -secondary to acute COVID-19 pneumonia management as discussed above 4. Multiple myeloma ?Patient managed by Dr. Centeno as outpatient 5. Hypertension - Blood pressure controlled, home medications continued with dose adjustment as needed 6. DVT prophylaxis - On enoxaparin Inpatient E&M: 81589 Subs Hosp L2
[2020-09-18 07:50] LABS: Hematocrit 38.9 % (40-54); Hemoglobin 12.4 g/dL (13.0-16.5); Mean Corp Hgb Conc 31.9 g/dL (32-36); Mean Corpuscular Hgb 28.5 pg (27.0-32.0); Mean Corpuscular Volume 89.4 fL (80-94); Mean Platelet Vol. 9.6 fl (6.2-12.0); Platelet Count 354 K/mm3 (150-450); RBC Distribution Width CV 14.3 % (11.6-14.6); RBC Distribution Width SD 46.7 fl (35.1-43.9); Red Blood Count 4.35 M/mm3 (4.6-6.2); White Blood Count 11.8 K/mm3 (4.4-11.0)
[2020-09-18 08:10] LABS: ALB/GLOB Ratio 0.5 RATIO (0.9-2.4); AST(SGOT) 26 U/L (15-37); Alanine Aminotransfer ALT/SGPT 45 U/L (16-61); Albumin, Serum 2.5 g/dL (3.2-5.0); Alkaline Phosphatase 82 U/L (45-117); Anion Gap 7 (5-15); BUN 24 mg/dL (7-18); BUN/Creat Ratio 37.9 RATIO (10-20); Bilirubin, Direct 0.16 mg/dL (0.00-0.30); Calcium,Total 9.1 mg/dL (8.5-10.1); Chloride 105 mmol/L (98-107); Creatinine, Serum 0.63 mg/dL (0.70-1.30); EST Glomerular Filtration Rate 136 mL/min (>60); Est Glom Filt Rate - Afr Amer 165 mL/min (>60); Globulin 4.7 g/dL (2.2-4.2); Glucose 102 mg/dL (74-106); Magnesium 2.1 mg/dL (1.6-2.6); Potassium 3.9 mmol/L (3.5-5.1); Protein, Total 7.2 g/dL (6.4-8.2); Sodium Level 137 mmol/L (136-145)
[2020-09-18] MEDS: Lisinopril 10 MG Tablet PO (08:17)
[2020-09-18] MEDS: Enoxaparin 40 MG/0.4 ML Syringe SC (08:17)
[2020-09-18] MEDS: Furosemide 40 MG/4 ML Vial IV (08:17)
[2020-09-18] MEDS: dexAMETHasone 10 MG/ML Vial 6 MG IV (08:17)
--- NOTE | 2020-09-18 08:38 | CPS ---
PATIENT WAS ON NON-REBREATHER WITH SPO2 ONLY IN THE 80'S. PATIENT PLACED ON AIRVO.
--- NOTE | 2020-09-18 15:48 | PCM.PN.ID ---
Patient Problems: Active and Suspected Problems Hypoxia (Acute) Pneumonia due to COVID-19 virus (Acute) Acute respiratory failure with hypoxia (Acute) Subjective: Feeling much better today, no fever, no n/v/d - Physical Exam Vitals/I&O's: Vital Signs Temp Pulse Resp BP Pulse Ox 97.2 F L 96 22 H 145/96 H 90 09/18/20 14:41 09/18/20 14:53 09/18/20 14:41 09/18/20 14:41 09/18/20 15:03 Oxygen Flow Rate (L/min) 60 Oxygen Delivery Method Airvo Weight: 106.9 kg Body Mass Index (BMI) 29.4 Intake and Output for Last 24 Hours 09/16/20 09/17/20 09/18/20 23:59 23:59 23:59 Intake Total 2150 / 2150 750 / 750 550 / 550 Output Total 625 / 625 2425 / 2425 1075 / 1075 Balance 1525 / 1525 -1675 / -1675 -525 / -525 General: Alert, Cooperative, No apparent distress Lungs: Diminished Cardiovascular: Regular rate, Regular Rhythm Abdomen: Soft, Non Tender, Non-Distended Skin: No rashes Microbiology Past 72 Hours 09/14/20 15:55 Blood Culture (Wb) - Anticubital Right Blood Culture - Preliminary No growth in 48 hours. 09/14/20 15:55 Blood Culture (Wb) - Anticubital Left Blood Culture - Preliminary No growth in 48 hours. Laboratory Results 09/18/20 07:43: Sodium 137, Potassium 3.9, Chloride 105, Carbon Dioxide 25.0, Anion Gap 7, BUN 24 H, Creatinine 0.63 L, Estim Creat Clear Calc 145.30, Est GFR (MDRD) Af Amer 165, Est GFR (MDRD) Non-Af 136, BUN/Creatinine Ratio 37.9 H, Glucose 102, Calcium 9.1, Magnesium 2.1, Total Bilirubin 0.40, Direct Bilirubin 0.16, AST 26, ALT 45, Alkaline Phosphatase 82, Total Protein 7.2, Albumin 2.5 L, Globulin 4.7 H, Albumin/Globulin Ratio 0.5 L 09/18/20 07:43: WBC 11.8 H, RBC 4.35 L, Hgb 12.4 L, Hct 38.9 L, MCV 89.4, MCH 28.5, MCHC 31.9 L, RDW Std Deviation 46.7 H, RDW Coeff of Kerline 14.3, Plt Count 354, MPV 9.6 Current Medications Acetaminophen (Acetaminophen 325 Mg Tablet) 650 mg PO Q6H PRN PRN PRN Reason: Pain Score 1-10/Temp > 100.7 F Albuterol Sulfate (Albuterol Sulfate 8 Gm Inhaler (60 Puffs)) 2 puff INHALATION Q4H PRN PRN PRN Reason: Shortness of breath, wheezing Last Admin: 09/15/20 23:53 Dose: 2 puff Documented by: Dexamethasone (Dexamethasone 4 Mg Tablet) 6 mg PO DAILY@0800 [facility] Stop: 09/23/20 08:01 Enoxaparin Sodium (Enoxaparin 40 Mg/0.4 Ml Syringe) 40 mg SC DAILY [facility] Last Admin: 09/18/20 08:17 Dose: 40 mg Documented by: Remdesivir 100 mg/ Sodium (Chloride) 250 mls @ 125 mls/hr IV DAILY [facility]; Protocol Stop: 09/19/20 11:59 Last Infusion: 09/18/20 13:07 Dose: Infused Documented by: Lisinopril (Lisinopril 10 Mg Tablet) 10 mg PO DAILY [facility] Last Admin: 09/18/20 08:17 Dose: 10 mg Documented by: Ondansetron HCl (Ondansetron 4 Mg/2 Ml Vial) 4 mg IV Q8H PRN PRN PRN Reason: NAUSEA/VOMITING Senna/Docusate Sodium (Senna/Docusate Sodium 1 Tablet) 2 tablet PO BID PRN PRN PRN Reason: Constipation Sodium Chloride (0.9% Saline Lock 10 Ml Syringe) 10 - 40 ml IV UD PRN PRN Reason: SALINE FLUSH Last Admin: 09/18/20 11:08 Dose: 10 ml Documented by: Zolpidem Tartrate (Zolpidem Tartrate 5 Mg Tablet) 5 mg PO QHS PRN PRN PRN Reason: INSOMNIA Medical Necessity - Tobacco Use Smoking Status: Former smoker Tobacco Use: Cigarettes Route of nutrition/ use of supplements: [] Nutritional Intake: [] IV Site: [] Starks Catheter: [] - Assessment/Plan Antibiotics: [] Assessment/Plan: [] Active and Suspected Problems Hypoxia (Acute) Pneumonia due to COVID-19 virus (Acute) Acute respiratory failure with hypoxia (Acute) covid with hypoxic resp failure - on dex, remdesivir and received / plasma. On 70% airvo, feeling better. Will follow
[2020-09-19] VITALS (32 sets, daily range): BP systolic 81–150; BP diastolic 60–97; PULSE 56–122; RESP 12–32; TEMP 36.1–37.6; O2SAT 80–98
--- NOTE | 2020-09-19 02:30 | PCM.HOSP.N ---
Hospitalist Note Patient with worsening oxygenation, attempted transition to BIPAP, patient immediately took off noting inability to tolerate the mask on the face, offering ativan with BIPAP usage. RT frankly discussed need for BIPAP to maintain appropriate oxygenation otherwise need for intubation. Patient has refused aggressive measures at this point now including intubation. CODE status changed. Will continue to encourage consideration of at least BIPAP with regimen to allow patient to relax more.
--- NOTE | 2020-09-19 03:34 | CPS ---
Pt cannot tolerate BIPAP and is refusing at this time. INSTRUMENTAL TEACHER explained risks of refusing PAP therapy and pt states to understand. Physician notified.
--- NOTE | 2020-09-19 06:07 | PCM.PN.PUL ---
Patient Problems: Active and Suspected Problems Hypoxia (Acute) Pneumonia due to COVID-19 virus (Acute) Acute respiratory failure with hypoxia (Acute) Subjective: The patient was seen and examined at the bedside this morning. Events from the last 24 hours have been reviewed. Overnight, the patient's respiratory status continued to decline. Attempt to utilize BiPAP was unsuccessful due to patient tolerance. The overnight hospitalist had a discussion with the patient who frankly refused to utilize BiPAP and subsequently changed his CODE STATUS to DNR CCA without intubation. The patient is currently being maintained on Airvo heated high flow oxygen with an FiO2 requirement of 93% and flow rate of 60 L/min. The patient has already received convalescent plasma and remains on Decadron and remdesivir. Objective: The patient's most recent lab work, culture data and imaging studies have all been personally reviewed. Coronavirus PCR was positive on September 08. - Physical Exam Vitals/I&O's: Vital Signs Temp Pulse Resp BP Pulse Ox 97.0 F L 109 H 20 H 144/86 H 92 09/19/20 05:50 09/19/20 05:50 09/19/20 05:50 09/19/20 05:50 09/19/20 05:50 Oxygen Flow Rate (L/min) 60 Oxygen Delivery Method Airvo Weight: 235 lb 10.786 oz Body Mass Index (BMI) 29.4 Intake and Output for Last 24 Hours 09/17/20 09/18/20 09/19/20 23:59 23:59 23:59 Intake Total 750 / 750 910 / 910 Output Total 2425 / 2425 1375 / 1675 625 / 625 Balance -1675 / -1675 -465 / -765 -625 / -625 General: Alert, Cooperative HEENT: Atraumatic, Normocephalic Oral: No Gingival or Mucosal Lesions/ Ulcerations Neck: Supple, No Nodes, Trachea Midline Lungs: Diminished, Tachypneic Cardiovascular: Regular rate, Regular Rhythm Abdomen: Bowel Sounds Present, Soft, Non Tender Extremities: No clubbing, No cyanosis, No edema Skin: No breakdown Musculoskeletal: No Muscle Wasting Lymphatic: No Cervical, Supraclavicular, or Inguinal Adenopathy Neurological: Neuro grossly intact Psych/Mental Status: Anxious Labs (Last 48 Hours) 09/18/20 09/18/20 07:43 07:43 WBC 11.8 H RBC 4.35 L Hgb 12.4 L Hct 38.9 L MCV 89.4 MCH 28.5 MCHC 31.9 L RDW Std Deviation 46.7 H RDW Coeff of Kerline 14.3 Plt Count 354 MPV 9.6 Sodium 137 Potassium 3.9 Chloride 105 Carbon Dioxide 25.0 Anion Gap 7 BUN 24 H Creatinine 0.63 L Estim Creat Clear Calc 145.30 Est GFR (MDRD) Af Amer 165 Est GFR (MDRD) Non-Af 136 BUN/Creatinine Ratio 37.9 H Glucose 102 Calcium 9.1 Magnesium 2.1 Total Bilirubin 0.40 Direct Bilirubin 0.16 AST 26 ALT 45 Alkaline Phosphatase 82 Total Protein 7.2 Albumin 2.5 L Globulin 4.7 H Albumin/Globulin Ratio 0.5 L Microbiology 09/14/20 15:55 Blood Culture (Wb) - Anticubital Right Blood Culture - Preliminary No growth in 48 hours. 09/14/20 15:55 Blood Culture (Wb) - Anticubital Left Blood Culture - Preliminary No growth in 48 hours. Clinical Impression(s) from Imaging Studies Chest X-Ray 09/14/20 16:21 IMPRESSION: Bibasilar airspace disease increased Electronically Signed: Iban Andino MD at 17:19 EST , Service support , Current Medications Acetaminophen (Acetaminophen 325 Mg Tablet) 650 mg PO Q6H PRN PRN PRN Reason: Pain Score 1-10/Temp > 100.7 F Albuterol Sulfate (Albuterol Sulfate 8 Gm Inhaler (60 Puffs)) 2 puff INHALATION Q4H PRN PRN PRN Reason: Shortness of breath, wheezing Last Admin: 09/15/20 23:53 Dose: 2 puff Documented by: Dexamethasone (Dexamethasone 4 Mg Tablet) 6 mg PO DAILY@0800 [facility] Stop: 09/23/20 08:01 Enoxaparin Sodium (Enoxaparin 40 Mg/0.4 Ml Syringe) 40 mg SC DAILY [facility] Last Admin: 09/18/20 08:17 Dose: 40 mg Documented by: Remdesivir 100 mg/ Sodium (Chloride) 250 mls @ 125 mls/hr IV DAILY [facility]; Protocol Stop: 09/19/20 11:59 Last Infusion: 09/18/20 13:07 Dose: Infused Documented by: Lisinopril (Lisinopril 10 Mg Tablet) 10 mg PO DAILY DIONNE Last Admin: 09/18/20 08:17 Dose: 10 mg Documented by: Lorazepam (Lorazepam 2 Mg/Ml Syringe) 0.5 mg IV Q4H PRN PRN PRN Reason: anxiety/agitation with BIPAP Ondansetron HCl (Ondansetron 4 Mg/2 Ml Vial) 4 mg IV Q8H PRN PRN PRN Reason: NAUSEA/VOMITING Senna/Docusate Sodium (Senna/Docusate Sodium 1 Tablet) 2 tablet PO BID PRN PRN PRN Reason: Constipation Sodium Chloride (0.9% Saline Lock 10 Ml Syringe) 10 - 40 ml IV UD PRN PRN Reason: SALINE FLUSH Last Admin: 09/18/20 11:08 Dose: 10 ml Documented by: Zolpidem Tartrate (Zolpidem Tartrate 5 Mg Tablet) 5 mg PO QHS PRN PRN PRN Reason: INSOMNIA Medical Necessity - Tobacco Use Smoking Status: Former smoker Tobacco Use: Cigarettes Assessment/Plan All Active Problems Hypoxia (Acute) Pneumonia due to COVID-19 virus (Acute) Acute respiratory failure with hypoxia (Acute) RECOMMENDATIONS: 1. Wean supplemental oxygen to maintain saturations at or above 90%. 2. Continue Decadron 6 mg daily x10 days. 3. Continue remdesivir. 4. Continue Lovenox for prophylaxis. 5. Gentle diuresis as tolerated by hemodynamics and renal function. IMPRESSIONS: 1. Acute hypoxemic respiratory failure secondary to COVID-19 pneumonia The patient presented to the hospital with approximately 1 week of Covid-like symptoms. He is currently maintaining appropriate oxygen saturations on Airvo heated high flow. Given his duration of symptoms and underlying multiple myeloma, the patient received convalescent plasma and was started on remdesivir and Decadron. Continue to wean supplemental oxygen to maintain saturations at or above 90%. Continue attempts at gentle diuresis as tolerated by hemodynamics and renal function. Encourage incentive spirometer use while in bed. 2. History of multiple myeloma on treatment/hypertension Complicates care, management, recovery and prognosis. Continue home medications as indicated. This note was generated with Uberation software. It may contain incorrect words, spelling, and punctuation that were not noted in checking the note before signing. Inpatient E&M: 74493 Subs Hosp L2
--- NOTE | 2020-09-19 07:00 | CPS ---
Patient observed on airvo
--- NOTE | 2020-09-19 07:27 | PN_ITS ---
Patient Problems: Active and Suspected Problems Hypoxia (Acute) Pneumonia due to COVID-19 virus (Acute) Acute respiratory failure with hypoxia (Acute) Reason for Visit: Acute hypoxic respiratory failure Subjective: Patient condition deteriorated during the evening. Plan was for patient to be placed on BiPAP however patient refused. Discussions were held with the patient regarding his CODE STATUS which was changed to DNR CCA no intubation. Currently on Airvo Discussion was held with patient regarding this condition. Currently saturating in the high 80s recommendation is for patient to go on BiPAP however he is still refusing. Updated regarding patient's current condition and his decisions. Objective: GENERAL: on Airvo HEENT: Atraumatic; EYES; Anicteric, Normal Conjunctiva NECK; supple, normal thyroid, RESPIRATORY: Diminished to auscultation CARDIOVASCULAR: Regular S1 S2, GI: soft, normoactive bowel sounds, : No Renal angle tenderness; EXTREMITIES: No edema, no clubbing, MUSCULOSKELETAL: no muscle waisting NEURO: Awake; no lateralizing signs. SKIN: No Rash PSYCH; Flat affect Vitals/I&O's: Vital Signs Temp Pulse Resp BP Pulse Ox 97.0 F L 109 H 20 H 144/86 H 92 09/19/20 05:50 09/19/20 05:50 09/19/20 05:50 09/19/20 05:50 09/19/20 05:50 Oxygen Flow Rate (L/min) 60 Oxygen Delivery Method Airvo Weight: 106.9 kg Body Mass Index (BMI) 29.4 Intake and Output for Last 24 Hours 09/17/20 09/18/20 09/19/20 23:59 23:59 23:59 Intake Total 750 / 750 910 / 910 Output Total 2425 / 2425 1375 / 1675 625 / 625 Balance -1675 / -1675 -465 / -765 -625 / -625 Microbiology Past 72 Hours 09/14/20 15:55 Blood Culture (Wb) - Anticubital Right Blood Culture - Preliminary No growth in 48 hours. 09/14/20 15:55 Blood Culture (Wb) - Anticubital Left Blood Culture - Preliminary No growth in 48 hours. Laboratory Results 09/18/20 07:43: Sodium 137, Potassium 3.9, Chloride 105, Carbon Dioxide 25.0, Anion Gap 7, BUN 24 H, Creatinine 0.63 L, Estim Creat Clear Calc 145.30, Est GFR (MDRD) Af Amer 165, Est GFR (MDRD) Non-Af 136, BUN/Creatinine Ratio 37.9 H, Glucose 102, Calcium 9.1, Magnesium 2.1, Total Bilirubin 0.40, Direct Bilirubin 0.16, AST 26, ALT 45, Alkaline Phosphatase 82, Total Protein 7.2, Albumin 2.5 L, Globulin 4.7 H, Albumin/Globulin Ratio 0.5 L 09/18/20 07:43: WBC 11.8 H, RBC 4.35 L, Hgb 12.4 L, Hct 38.9 L, MCV 89.4, MCH 28.5, MCHC 31.9 L, RDW Std Deviation 46.7 H, RDW Coeff of Kerline 14.3, Plt Count 354, MPV 9.6 Current Medications Acetaminophen (Acetaminophen 325 Mg Tablet) 650 mg PO Q6H PRN PRN PRN Reason: Pain Score 1-10/Temp > 100.7 F Albuterol Sulfate (Albuterol Sulfate 8 Gm Inhaler (60 Puffs)) 2 puff INHALATION Q4H PRN PRN PRN Reason: Shortness of breath, wheezing Last Admin: 09/15/20 23:53 Dose: 2 puff Documented by: Dexamethasone (Dexamethasone 4 Mg Tablet) 6 mg PO DAILY@0800 [facility] Stop: 09/23/20 08:01 Enoxaparin Sodium (Enoxaparin 40 Mg/0.4 Ml Syringe) 40 mg SC DAILY [facility] Last Admin: 09/18/20 08:17 Dose: 40 mg Documented by: Remdesivir 100 mg/ Sodium (Chloride) 250 mls @ 125 mls/hr IV DAILY [facility]; Protocol Stop: 09/19/20 11:59 Last Infusion: 09/18/20 13:07 Dose: Infused Documented by: Lisinopril (Lisinopril 10 Mg Tablet) 10 mg PO DAILY [facility] Last Admin: 09/18/20 08:17 Dose: 10 mg Documented by: Lorazepam (Lorazepam 2 Mg/Ml Syringe) 0.5 mg IV Q4H PRN PRN PRN Reason: anxiety/agitation with BIPAP Ondansetron HCl (Ondansetron 4 Mg/2 Ml Vial) 4 mg IV Q8H PRN PRN PRN Reason: NAUSEA/VOMITING Senna/Docusate Sodium (Senna/Docusate Sodium 1 Tablet) 2 tablet PO BID PRN PRN PRN Reason: Constipation Sodium Chloride (0.9% Saline Lock 10 Ml Syringe) 10 - 40 ml IV UD PRN PRN Reason: SALINE FLUSH Last Admin: 09/18/20 11:08 Dose: 10 ml Documented by: Zolpidem Tartrate (Zolpidem Tartrate 5 Mg Tablet) 5 mg PO QHS PRN PRN PRN Reason: INSOMNIA STROKE Vital Signs/Narrative: Vital Signs Temp Pulse Resp BP Pulse Ox 09/19/20 05:50 97.0 F L 109 H 20 H 144/86 H 92 09/19/20 05:25 101 H 24 H 90 Medical Necessity - Tobacco Use Smoking Status: Former smoker Tobacco Use: Cigarettes Assessment/Plan All Active Problems Hypoxia (Acute) Pneumonia due to COVID-19 virus (Acute) Acute respiratory failure with hypoxia (Acute) Patient is a 60-year-old gentleman presented with progressive shortness of breath diagnosed with acute COVID-19 pneumonia 1. Acute COVID-19 pneumonia ?Patient admitted to regular nursing floor. Imaging studies on admission demonstrated increased bibasilar airspace disease patient started on remdesivir as well as Decadron. Patient requiring high flow oxygen. Currently saturating mid 80s on 5 L with plans to bump up his oxygen to 10 L. Consult was also placed to pulmonary medicine ?09/16/2020 seen still requires high flow oxygen. Patient started on remdesivir. Received convalescent plasma. 09/17/2020; Still requires high flow oxygen. Patient desaturates easily and had to be placed on a minimum of 12 L to participate in physical therapy. -09/18/2020 No improvement in patient's condition. Patient had to be switched to Airvo due to increasing oxygen requirement. -09/19/2020 Patient condition deteriorated during the evening. Plan was for patient to be placed on BiPAP however patient refused. Discussions were held with the patient regarding his CODE STATUS which was changed to DNR CCA no intubation. Currently on Airvo, patient is however only saturating in the high 80s. He refuses to go on BiPAP. Went to work discussions with regarding his CODE STATUS. Currently remains DNR CCA no intubation. Patient also requested consultation with hospice he is desires to go home with hospice (time spent on advanced planning discussion 25-minute) 2. Acute hypoxic respiratory failure ?Secondary to above management as discussed 3. Severe sepsis -secondary to acute COVID-19 pneumonia management as discussed above 4. Multiple myeloma ?Patient managed by Dr. Centeno as outpatient 5. Hypertension - Blood pressure controlled, home medications continued with dose adjustment as needed 6. DVT prophylaxis - On enoxaparin Procedures: 13335 Advncd Care Plan 30 Min
--- NOTE | 2020-09-19 08:09 | NURSING ---
Dr Ordaz in room with this RN and RT. COVID and pneumonia explained to pt. Dr Ordaz explained risks of not controlling oxygenation including respiratory failure and if progresses, will lead to needing intubated. Dr Ordaz asked if pt would wear bipap mask, pt stated I'm not wearing the damn mask. Dr Ordaz discussed code status with pt. Pt stated he wants to go home to . Dr Ordaz advised pt that he can get CM on board to get pt on hospice and get him home. Pt vocalized agreement.
--- NOTE | 2020-09-19 08:31 | NURSING ---
HOSPICE NURSE PAGED FOR CONSULT
[2020-09-19 08:50] LABS: Absolute Lymphocyte Count 0.37 X10^3/uL (0.83-4.51); Absolute Neutrophil Count 13.5 X10^3/uL (2.0-7.7); Basophil# 0.05 X10^3/uL; Basophil% 0.3 % (0-1); Eosinophil# 0.01 X10^3/uL; Eosinophils% 0.1 % (0-5); Hematocrit 41.7 % (40-54); Hemoglobin 13.4 g/dL (13.0-16.5); Lymphocyte # 0.37 X10^3/ul (4.0); Lymphocyte % 2.5 % (19-41); Mean Corp Hgb Conc 32.1 g/dL (32-36); Mean Corpuscular Hgb 28.7 pg (27.0-32.0); Mean Corpuscular Volume 89.3 fL (80-94); Mean Platelet Vol. 9.8 fl (6.2-12.0); Monocyte% 2.1 % (0-10); NRBC Flagged by Analyzer 0 % (0-5); Neutrophil # 13.51 X10^3/uL (2.7-7.7); Neutrophil % 93.1 % (47-70); POSITIVE DIFFERENTIAL YES; Platelet Count 373 K/mm3 (150-450); RBC Distribution Width CV 14.4 % (11.6-14.6); RBC Distribution Width SD 46.9 fl (35.1-43.9); Red Blood Count 4.67 M/mm3 (4.6-6.2); White Blood Count 14.5 K/mm3 (4.4-11.0)
--- NOTE | 2020-09-19 08:51 | NURSING ---
HOSPICE NURSE, SITA KAPLAN RETURNED CALL AND OBTAINED INFO. WILL FAX PAPERWORK OVER TO HOSPICE
[2020-09-19 09:05] LABS: Magnesium 1.9 mg/dL (1.6-2.6)
[2020-09-19 09:13] LABS: Differential Indicated SCAN CRITERIA MET
[2020-09-19] MEDS: Lisinopril 10 MG Tablet PO (09:54)
[2020-09-19] MEDS: dexAMETHasone 4 MG Tablet 6 MG PO (09:54)
[2020-09-19 10:16] LABS: Platelet Estimate ADEQUATE (ADEQ); Red Cell Morphology NORM C+C NORMAL (NORM C&C)
--- NOTE | 2020-09-19 11:07 | NURSING ---
Report given to [facility] ICU.
--- NOTE | 2020-09-19 11:35 | NURSING ---
Pt moved to ICU room 2.
[2020-09-19] MEDS: Dexmedetomidine 1,000 mcg in 0.9% NS 240 mL 13.4 MCG CONT INF (12:30)
--- NOTE | 2020-09-19 17:17 | NURSING ---
updated benedict on patient status and transfer over to ICU
--- NOTE | 2020-09-19 21:45 | NURSING ---
Spoke to , Malena and daughter. Gave them update on condition. Malena asked that the patient call him.
--- NOTE | 2020-09-19 23:25 | NURSING ---
Gave patient a bath and changed his pants. Patient desat to 70's on airvo 60L/95% and unable to get pulse ox above 82%. Patient agreed to wear bipap. Respiratory notified and placed patient on bipap. Patients' , Malena notified and informed that he will not be able to call this evening due to being on bipap. She stated understanding of such
[2020-09-20] VITALS (30 sets, daily range): BP systolic 80–149; BP diastolic 63–108; PULSE 52–121; RESP 12–34; TEMP 35.9–36.9; O2SAT 91–100
--- NOTE | 2020-09-20 | NURSING ---
Patient called this nurse into his room and stated that the bipap is too dry. placed back on airvo 60L/95% and pulse ox dropped to mid 80's. Patient states he does not feel anxious with it on but that he gets too dry. He asked if he can hold it in place so he can take a drink when he needs it. patient was educated on the risk of aspiration if he drinks with the bipap in place. Patient verbalized understanding. Patient continued to state that he can't wear it if it makes him dry. Patient was informed that he has 2 choices, to wear the bipap and have adequate oxygenation despite the dryness being uncomfortable or to only wear the airvo with a low oxygen level that will eventually lead to his demise. Patient thought about it and agreed to wear the bipap until 0200. Bipap placed back on patient.
[2020-09-20 04:57] LABS: Absolute Lymphocyte Count 0.29 X10^3/uL (0.83-4.51); Basophil# 0.06 X10^3/uL; Basophil% 0.4 % (0-1); Eosinophil# 0.01 X10^3/uL; Eosinophils% 0.1 % (0-5); Hematocrit 42.6 % (40-54); Hemoglobin 13.6 g/dL (13.0-16.5); Lymphocyte # 0.29 X10^3/ul (4.0); Lymphocyte % 1.8 % (19-41); Mean Corp Hgb Conc 31.9 g/dL (32-36); Mean Corpuscular Hgb 28.7 pg (27.0-32.0); Mean Corpuscular Volume 89.9 fL (80-94); Mean Platelet Vol. 9.9 fl (6.2-12.0); Monocyte# 0.34 X10^3/uL; Monocyte% 2.1 % (0-10); NRBC Flagged by Analyzer 0 % (0-5); Neutrophil # 15.02 X10^3/uL (2.7-7.7); Neutrophil % 93.5 % (47-70); POSITIVE DIFFERENTIAL YES; Platelet Count 223 K/mm3 (150-450); RBC Distribution Width CV 14.2 % (11.6-14.6); RBC Distribution Width SD 46.5 fl (35.1-43.9); Red Blood Count 4.74 M/mm3 (4.6-6.2); White Blood Count 16.1 K/mm3 (4.4-11.0)
[2020-09-20 05:00] LABS: Differential Indicated SCAN CRITERIA MET
[2020-09-20 05:06] LABS: AST(SGOT) 14 U/L (15-37); Alanine Aminotransfer ALT/SGPT 37 U/L (16-61); Albumin, Serum 2.3 g/dL (3.2-5.0); Alkaline Phosphatase 88 U/L (45-117); Bilirubin, Direct 0.21 mg/dL (0.00-0.30); Globulin 4.8 g/dL (2.2-4.2); Protein, Total 7.1 g/dL (6.4-8.2)
[2020-09-20 05:27] LABS: Differential Comment SCANNED
--- NOTE | 2020-09-20 05:58 | PN_ITS ---
Subjective: The patient was seen and examined at the bedside this morning. Events from the last 24 hours have been reviewed. The patient is currently afebrile, hemodynamically stable and maintaining appropriate oxygen saturations on BiPAP with an FiO2 requirement of 100%. The patient was transferred from the medical surgical unit yesterday to be placed on a Precedex infusion to facilitate BiPAP adherence. The patient has already received convalescent plasma and completed a treatment course of remdesivir. He remains on Decadron daily. Objective: The patient's most recent lab work, culture data and imaging studies have all been personally reviewed. Coronavirus PCR was positive on September 08. General: Alert, Cooperative, - - Tolerating BiPAP currently without Precedex. HEENT: Atraumatic, Normocephalic Oral: No Gingival or Mucosal Lesions/ Ulcerations Neck: Supple, No Nodes, Trachea Midline Lungs: Diminished, Tachypneic Cardiovascular: Regular rate, Regular Rhythm Abdomen: Bowel Sounds Present, Soft, Non Tender Extremities: No clubbing, No cyanosis, No edema Skin: No breakdown Musculoskeletal: No Muscle Wasting Lymphatic: No Cervical, Supraclavicular, or Inguinal Adenopathy Neurological: Cranial nerves II-XII grossly intact, Neuro grossly intact Psych/Mental Status: Anxious Vital Signs Temp Pulse Resp BP Pulse Ox 96.8 F L 72 27 H 116/83 H 100 09/20/20 04:00 09/20/20 05:00 09/20/20 05:00 09/20/20 05:00 09/20/20 05:00 Oxygen Flow Rate (L/min) 60 Oxygen Delivery Method Bi-pap Weight: 250 lb 3.594 oz Body Mass Index (BMI) 29.4 Intake and Output for Last 24 Hours 09/18/20 09/19/20 09/20/20 23:59 23:59 23:59 Intake Total 910 / 910 1001.47 / 1009.47 21.34 / 21.34 Output Total 1375 / 1675 825 / 825 Balance -465 / -765 176.47 / 184.47 21.34 / 21.34 Labs (Last 48 Hours) 09/18/20 09/18/20 09/19/20 07:43 07:43 07:34 WBC 11.8 H 14.5 H RBC 4.35 L 4.67 Hgb 12.4 L 13.4 Hct 38.9 L 41.7 MCV 89.4 89.3 MCH 28.5 28.7 MCHC 31.9 L 32.1 RDW Std Deviation 46.7 H 46.9 H RDW Coeff of Kerline 14.3 14.4 Plt Count 354 373 MPV 9.6 9.8 Immature Gran % (Auto) 1.900 H Neut % (Auto) 93.1 H Lymph % (Auto) 2.5 L [place] % (Auto) 2.1 Eos % (Auto) 0.1 Baso % (Auto) 0.3 Absolute Neuts (auto) 13.5 H Absolute Lymphs (auto) 0.37 L Nucleated RBC % 0 Differential Comment Platelet Estimate ADEQUATE RBC Morphology NORM C+C Sodium 137 Potassium 3.9 Chloride 105 Carbon Dioxide 25.0 Anion Gap 7 BUN 24 H Creatinine 0.63 L Estim Creat Clear Calc 145.30 Est GFR (MDRD) Af Amer 165 Est GFR (MDRD) Non-Af 136 BUN/Creatinine Ratio 37.9 H Glucose 102 Calcium 9.1 Magnesium 2.1 Total Bilirubin 0.40 Direct Bilirubin 0.16 AST 26 ALT 45 Alkaline Phosphatase 82 Total Protein 7.2 Albumin 2.5 L Globulin 4.7 H Albumin/Globulin Ratio 0.5 L 09/19/20 09/20/20 09/20/20 07:34 04:40 04:40 WBC 16.1 H RBC 4.74 Hgb 13.6 Hct 42.6 MCV 89.9 MCH 28.7 MCHC 31.9 L RDW Std Deviation 46.5 H RDW Coeff of Kerline 14.2 Plt Count 223 MPV 9.9 Immature Gran % (Auto) 2.100 H Neut % (Auto) 93.5 H Lymph % (Auto) 1.8 L [place] % (Auto) 2.1 Eos % (Auto) 0.1 Baso % (Auto) 0.4 Absolute Neuts (auto) 15.0 H Absolute Lymphs (auto) 0.29 L Nucleated RBC % 0 Differential Comment SCANNED Platelet Estimate RBC Morphology Sodium Potassium Chloride Carbon Dioxide Anion Gap BUN Creatinine Estim Creat Clear Calc Est GFR (MDRD) Af Amer Est GFR (MDRD) Non-Af BUN/Creatinine Ratio Glucose Calcium Magnesium 1.9 Total Bilirubin 0.50 Direct Bilirubin 0.21 AST 14 L ALT 37 Alkaline Phosphatase 88 Total Protein 7.1 Albumin 2.3 L Globulin 4.8 H Albumin/Globulin Ratio Clinical Impression(s) from Imaging Studies Chest X-Ray 09/14/20 16:21 IMPRESSION: Bibasilar airspace disease increased Electronically Signed: Iban Andino MD at 17:19 EST , Service support , Medical Necessity - Tobacco Use Smoking Status: Former smoker Tobacco Use: Cigarettes Assessment/Plan All Active Problems Hypoxia (Acute) Pneumonia due to COVID-19 virus (Acute) Acute respiratory failure with hypoxia (Acute) RECOMMENDATIONS: 1. Continue BiPAP therapy and wean FiO2 to maintain oxygen saturations at or above 90%. 2. Continue Precedex, if needed, to facilitate BiPAP compliance. 3. Continue Decadron 6 mg daily x10 days. 4. Continue Lovenox for prophylaxis. 5. Gentle diuresis as tolerated by hemodynamics and renal function. IMPRESSIONS: 1. Acute hypoxemic respiratory failure secondary to COVID-19 pneumonia The patient presented to the hospital with approximately 1 week of Covid-like symptoms. He is currently maintaining appropriate oxygen saturations on BIPAP. Given his duration of symptoms and underlying multiple myeloma, the patient received convalescent plasma and completed a treatment course of remdesivir. He remains on Decadron daily. Continue to wean FiO2 to maintain saturations at or above 90%. Continue attempts at gentle diuresis as tolerated by hemodynamics and renal function. 2. History of multiple myeloma on treatment/hypertension Complicates care, management, recovery and prognosis. Continue home medications as indicated. TIME: 34 minutes of critical care time, independent of procedures, was spent addressing the patient's acute hypoxemic respiratory failure, COVID-19 pneumonia, anxiety, review of all data and collaboration with the care team. [id number]) [phone] [id number] Critical care first hour
--- NOTE | 2020-09-20 07:14 | PCM.PN.HOSP ---
Patient Problems: Active and Suspected Problems Hypoxia (Acute) Pneumonia due to COVID-19 virus (Acute) Acute respiratory failure with hypoxia (Acute) Reason for Visit: Acute hypoxic respiratory failure Subjective: Patient finally agreed to go on BiPAP discussions with the and his property utilization manager. Was transferred to the intensive care unit and started on Precedex drip Objective: GENERAL: on BiPAP HEENT: Atraumatic; EYES; Anicteric, Normal Conjunctiva NECK; supple, normal thyroid, RESPIRATORY: Diminished to auscultation CARDIOVASCULAR: Regular S1 S2, GI: soft, normoactive bowel sounds, : No Renal angle tenderness; EXTREMITIES: No edema, no clubbing, MUSCULOSKELETAL: no muscle waisting NEURO: Awake; no lateralizing signs. SKIN: No Rash PSYCH; Flat affect Vitals/I&O's: Vital Signs Temp Pulse Resp BP Pulse Ox 96.8 F L 71 30 H 116/80 94 09/20/20 04:00 09/20/20 06:00 09/20/20 06:00 09/20/20 06:00 09/20/20 06:00 Oxygen Flow Rate (L/min) 60 Oxygen Delivery Method Bi-pap Weight: 113.5 kg Body Mass Index (BMI) 29.4 Intake and Output for Last 24 Hours 09/18/20 09/19/20 09/20/20 23:59 23:59 23:59 Intake Total 910 / 910 1001.47 / 1009.47 21.34 / 21.34 Output Total 1375 / 1675 825 / 825 300 / 300 Balance -465 / -765 176.47 / 184.47 -278.66 / -278.66 Microbiology Past 72 Hours 09/14/20 15:55 Blood Culture (Wb) - Anticubital Left Blood Culture - Final No growth in 5 days. 09/14/20 15:55 Blood Culture (Wb) - Anticubital Right Blood Culture - Final No growth in 5 days. Laboratory Results 09/19/20 07:34: WBC 14.5 H, RBC 4.67, Hgb 13.4, Hct 41.7, MCV 89.3, MCH 28.7, MCHC 32.1, RDW Std Deviation 46.9 H, RDW Coeff of Kerline 14.4, Plt Count 373, MPV 9.8, Immature Gran % (Auto) 1.900 H, Neut % (Auto) 93.1 H, Lymph % (Auto) 2.5 L, [place] % (Auto) 2.1, Eos % (Auto) 0.1, Baso % (Auto) 0.3, Absolute Neuts (auto) 13.5 H, Absolute Lymphs (auto) 0.37 L, Nucleated RBC % 0, Platelet Estimate ADEQUATE, RBC Morphology NORM C+C 09/19/20 07:34: Magnesium 1.9 09/20/20 04:40: WBC 16.1 H, RBC 4.74, Hgb 13.6, Hct 42.6, MCV 89.9, MCH 28.7, MCHC 31.9 L, RDW Std Deviation 46.5 H, RDW Coeff of Kerline 14.2, Plt Count 223, MPV 9.9, Immature Gran % (Auto) 2.100 H, Neut % (Auto) 93.5 H, Lymph % (Auto) 1.8 L, [place] % (Auto) 2.1, Eos % (Auto) 0.1, Baso % (Auto) 0.4, Absolute Neuts (auto) 15.0 H, Absolute Lymphs (auto) 0.29 L, Nucleated RBC % 0, Differential Comment SCANNED 09/20/20 04:40: Total Bilirubin 0.50, Direct Bilirubin 0.21, AST 14 L, ALT 37, Alkaline Phosphatase 88, Total Protein 7.1, Albumin 2.3 L, Globulin 4.8 H Current Medications Acetaminophen (Acetaminophen 325 Mg Tablet) 650 mg PO Q6H PRN PRN PRN Reason: Pain Score 1-10/Temp > 100.7 F Albuterol Sulfate (Albuterol Sulfate 8 Gm Inhaler (60 Puffs)) 2 puff INHALATION Q4H PRN PRN PRN Reason: Shortness of breath, wheezing Last Admin: 09/15/20 23:53 Dose: 2 puff Documented by: Dexamethasone (Dexamethasone 4 Mg Tablet) 6 mg PO DAILY@0800 [facility] Stop: 09/23/20 08:01 Last Admin: 09/19/20 09:54 Dose: 6 mg Documented by: Enoxaparin Sodium (Enoxaparin 40 Mg/0.4 Ml Syringe) 40 mg SC DAILY [facility] Last Admin: 09/19/20 09:56 Dose: Not Given Documented by: Dexmedetomidine HCl 1,000 mcg/ (Sodium Chloride) 250 mls @ 13.363 mls/hr CONT INF .[id number] [facility]; Protocol Last Titration: 09/20/20 06:00 Dose: 0 mcg/kg/hr, 0 mls/hr Documented by: Lisinopril (Lisinopril 10 Mg Tablet) 10 mg PO DAILY [facility] Last Admin: 09/19/20 09:54 Dose: 10 mg Documented by: Lorazepam (Lorazepam 2 Mg/Ml Syringe) 0.5 mg IV Q4H PRN PRN PRN Reason: anxiety/agitation with BIPAP Ondansetron HCl (Ondansetron 4 Mg/2 Ml Vial) 4 mg IV Q8H PRN PRN PRN Reason: NAUSEA/VOMITING Senna/Docusate Sodium (Senna/Docusate Sodium 1 Tablet) 2 tablet PO BID PRN PRN PRN Reason: Constipation Sodium Chloride (0.9% Saline Lock 10 Ml Syringe) 10 - 40 ml IV UD PRN PRN Reason: SALINE FLUSH Last Admin: 09/18/20 11:08 Dose: 10 ml Documented by: Zolpidem Tartrate (Zolpidem Tartrate 5 Mg Tablet) 5 mg PO QHS PRN PRN PRN Reason: INSOMNIA STROKE Vital Signs/Narrative: Vital Signs Temp Pulse Resp BP Pulse Ox 09/20/20 06:00 71 30 H 116/80 94 09/20/20 05:00 72 27 H 116/83 H 100 09/20/20 04:00 96.8 F L 60 27 H 121/86 H 98 09/20/20 03:25 56 L 24 H 92 Medical Necessity - Tobacco Use Smoking Status: Former smoker Tobacco Use: Cigarettes Assessment/Plan All Active Problems Hypoxia (Acute) Pneumonia due to COVID-19 virus (Acute) Acute respiratory failure with hypoxia (Acute) Patient is a 60-year-old gentleman presented with progressive shortness of breath diagnosed with acute COVID-19 pneumonia 1. Acute COVID-19 pneumonia ?Patient admitted to regular nursing floor. Imaging studies on admission demonstrated increased bibasilar airspace disease patient started on remdesivir as well as Decadron. Patient requiring high flow oxygen. Currently saturating mid 80s on 5 L with plans to bump up his oxygen to 10 L. Consult was also placed to pulmonary medicine ?09/16/2020 seen still requires high flow oxygen. Patient started on remdesivir. Received convalescent plasma. 09/17/2020; Still requires high flow oxygen. Patient desaturates easily and had to be placed on a minimum of 12 L to participate in physical therapy. -09/18/2020 No improvement in patient's condition. Patient had to be switched to Airvo due to increasing oxygen requirement. -09/19/2020 Patient condition deteriorated during the evening. Plan was for patient to be placed on BiPAP however patient refused. Discussions were held with the patient regarding his CODE STATUS which was changed to DNR CCA no intubation. Currently on Airvo, patient is however only saturating in the high 80s. He refuses to go on BiPAP. Went to work discussions with regarding his CODE STATUS. Currently remains DNR CCA no intubation. Patient also requested consultation with hospice he is desires to go home with hospice (time spent on advanced planning discussion 25-minute) -09/20/2020; Patient finally agreed to go on BiPAP discussions with the and his property utilization manager. Was transferred to the intensive care unit and started on Precedex drip. Patient appears to be much calmer this a.m. 2. Acute hypoxic respiratory failure ?Secondary to above management as discussed 3. Severe sepsis -secondary to acute COVID-19 pneumonia management as discussed above 4. Multiple myeloma ?Patient managed by Dr. Centeno as outpatient 5. Hypertension - Blood pressure controlled, home medications continued with dose adjustment as needed 6. DVT prophylaxis - On enoxaparin Inpatient E&M: [id number] [facility] Hosp L2
[2020-09-20] MEDS: Enoxaparin 40 MG/0.4 ML Syringe SC (09:13)
[2020-09-20] MEDS: dexAMETHasone 4 MG Tablet 6 MG PO (09:13)
[2020-09-20] MEDS: Lisinopril 10 MG Tablet PO (09:13)
[2020-09-20] MEDS: 0.9% Saline Lock 10 ML Syringe IV (10:11)
[2020-09-20] MEDS: Furosemide 40 MG/4 ML Vial IV (10:11)
[2020-09-20] MEDS: Dexmedetomidine 1,000 mcg in 0.9% NS 240 mL 13.4 MCG CONT INF (12:25)
[2020-09-21] VITALS (31 sets, daily range): BP systolic 80–103; BP diastolic 61–77; PULSE 54–62; RESP 12–32; TEMP 35.9–36.6; O2SAT 92–96
[2020-09-21 05:09] LABS: Absolute Lymphocyte Count 0.32 X10^3/uL (0.83-4.51); Absolute Neutrophil Count 14.1 X10^3/uL (2.0-7.7); Basophil# 0.03 X10^3/uL; Basophil% 0.2 % (0-1); Hematocrit 40.8 % (40-54); Hemoglobin 13.3 g/dL (13.0-16.5); Lymphocyte # 0.32 X10^3/ul (4.0); Lymphocyte % 2.1 % (19-41); Mean Corp Hgb Conc 32.6 g/dL (32-36); Mean Corpuscular Hgb 29.4 pg (27.0-32.0); Mean Corpuscular Volume 90.1 fL (80-94); Mean Platelet Vol. 10.4 fl (6.2-12.0); Monocyte# 0.35 X10^3/uL; Monocyte% 2.3 % (0-10); NRBC Flagged by Analyzer 0 % (0-5); Neutrophil # 14.07 X10^3/uL (2.7-7.7); POSITIVE DIFFERENTIAL YES; Platelet Count 162 K/mm3 (150-450); RBC Distribution Width CV 14.4 % (11.6-14.6); RBC Distribution Width SD 47.1 fl (35.1-43.9); Red Blood Count 4.53 M/mm3 (4.6-6.2)
[2020-09-21 05:25] LABS: AST(SGOT) 10 U/L (15-37); Alanine Aminotransfer ALT/SGPT 29 U/L (16-61); Albumin, Serum 2.2 g/dL (3.2-5.0); Alkaline Phosphatase 89 U/L (45-117); Bilirubin, Direct 0.19 mg/dL (0.00-0.30); Protein, Total 7.2 g/dL (6.4-8.2)
[2020-09-21 05:42] LABS: Differential Indicated SCAN CRITERIA MET
[2020-09-21 05:55] LABS: Differential Comment SCANNED
[2020-09-21] MEDS: Dexmedetomidine 1,000 mcg in 0.9% NS 240 mL 13.1 MCG CONT INF (06:45)
--- NOTE | 2020-09-21 06:52 | PN_ITS ---
Patient Problems: Active and Suspected Problems Hypoxia (Acute) Pneumonia due to COVID-19 virus (Acute) Acute respiratory failure with hypoxia (Acute) Reason for Visit: Follow-up: Acute hypoxic respiratory failure/COVID-19 pneumonia Subjective: Patient was seen and examined. He is currently on Precedex and BiPAP. Blood pressures have been relatively low and patient remains bradycardic. No other acute events overnight. Objective: Physical exam: Vitals/I&O's: Vital Signs Temp Pulse Resp BP Pulse Ox 98.2 F 58 L 21 H 82/63 L 92 09/21/20 04:00 09/21/20 05:00 09/21/20 05:00 09/21/20 05:00 09/21/20 05:00 Oxygen Flow Rate (L/min) 60 Oxygen Delivery Method Bi-pap Weight: 104.4 kg Body Mass Index (BMI) 29.4 Intake and Output for Last 24 Hours 09/19/20 09/20/20 09/21/20 23:59 23:59 23:59 Intake Total 1001.47 / 1009.47 182.14 / 195.54 80.4 / 80.4 Output Total 825 / 825 1775 / 1845 160 / 160 Balance 176.47 / 184.47 -1592.86 / -1649.46 -79.6 / -79.6 Microbiology Past 72 Hours 09/14/20 15:55 Blood Culture (Wb) - Anticubital Left Blood Culture - Final No growth in 5 days. 09/14/20 15:55 Blood Culture (Wb) - Anticubital Right Blood Culture - Final No growth in 5 days. Laboratory Results 09/21/20 04:50: WBC 15.0 H, RBC 4.53 L, Hgb 13.3, Hct 40.8, MCV 90.1, MCH 29.4, MCHC 32.6, RDW Std Deviation 47.1 H, RDW Coeff of Kerline 14.4, Plt Count 162, MPV 10.4, Immature Gran % (Auto) 1.400 H, Neut % (Auto) 94.0 H, Lymph % (Auto) 2.1 L , [place] % (Auto) 2.3, Eos % (Auto) 0.0, Baso % (Auto) 0.2, Absolute Neuts (auto) 14.1 H, Absolute Lymphs (auto) 0.32 L, Nucleated RBC % 0, Differential Comment SCANNED 09/21/20 04:50: Total Bilirubin 0.50, Direct Bilirubin 0.19, AST 10 L, ALT 29, Alkaline Phosphatase 89, Total Protein 7.2, Albumin 2.2 L, Globulin 5.0 H Current Medications Acetaminophen (Acetaminophen 325 Mg Tablet) 650 mg PO Q6H PRN PRN PRN Reason: Pain Score 1-10/Temp > 100.7 F Albuterol Sulfate (Albuterol Sulfate 8 Gm Inhaler (60 Puffs)) 2 puff INHALATION Q4H PRN PRN PRN Reason: Shortness of breath, wheezing Last Admin: 09/15/20 23:53 Dose: 2 puff Documented by: Dexamethasone (Dexamethasone 4 Mg Tablet) 6 mg PO DAILY@0800 [facility] Stop: 09/23/20 08:01 Last Admin: 09/20/20 09:13 Dose: 6 mg Documented by: Enoxaparin Sodium (Enoxaparin 40 Mg/0.4 Ml Syringe) 40 mg SC DAILY [facility] Last Admin: 09/20/20 09:13 Dose: 40 mg Documented by: Dexmedetomidine HCl 1,000 mcg/ (Sodium Chloride) 250 mls @ 13.05 mls/hr CONT INF .[id number] [facility]; Protocol Last Titration: 09/21/20 05:00 Dose: 0.5 mcg/kg/hr, 13.4 mls/hr Documented by: Lisinopril (Lisinopril 10 Mg Tablet) 10 mg PO DAILY [facility] Last Admin: 09/20/20 09:13 Dose: 10 mg Documented by: Lorazepam (Lorazepam 2 Mg/Ml Syringe) 0.5 mg IV Q4H PRN PRN PRN Reason: anxiety/agitation with BIPAP Ondansetron HCl (Ondansetron 4 Mg/2 Ml Vial) 4 mg IV Q8H PRN PRN PRN Reason: NAUSEA/VOMITING Senna/Docusate Sodium (Senna/Docusate Sodium 1 Tablet) 2 tablet PO BID PRN PRN PRN Reason: Constipation Sodium Chloride (0.9% Saline Lock 10 Ml Syringe) 10 - 40 ml IV UD PRN PRN Reason: SALINE FLUSH Last Admin: 09/20/20 10:11 Dose: 10 ml Documented by: Zolpidem Tartrate (Zolpidem Tartrate 5 Mg Tablet) 5 mg PO QHS PRN PRN PRN Reason: INSOMNIA STROKE Vital Signs/Narrative: Vital Signs Temp Pulse Resp BP Pulse Ox 09/21/20 05:00 58 L 21 H 82/63 L 92 09/21/20 04:00 98.2 F 58 L 23 H 83/65 L 95 09/21/20 03:35 57 L 22 H 93 09/21/20 03:00 56 L 19 H 80/62 L 94 Medical Necessity - Tobacco Use Smoking Status: Former smoker Tobacco Use: Cigarettes Assessment/Plan All Active Problems Hypoxia (Acute) Pneumonia due to COVID-19 virus (Acute) Acute respiratory failure with hypoxia (Acute) 1. Acute hypoxic respiratory failure secondary to acute COVID-19 pneumonia Patient remains on BiPAP and Precedex Continue with breathing treatments, PO steroids, encourage use of incentive spirometer. Wean off oxygen for SPO2 more than 94%\ 2. Severe sepsis secondary to acute COVID-19 pneumonia, very minimally improved Admitting lactic acid of 2.6. Status post convalescent plasma and remdesivir on 09/16/20 We will continue on p.o. dexamethasone ID and pulmonology following 3. Hypertension, now relatively hypotensive secondary to use of Precedex Map remains above 65, off lisinopril, will continue to monitor 4. Multiple myeloma, follow-up with outpatient plan 5. DVT prophylaxis with Lovenox subcu Inpatient E&M: [id number] Subs Hosp L3
[2020-09-21] MEDS: TITRATION PARAMETER CHANGE 1 EACH IV (07:09)
[2020-09-21] MEDS: Enoxaparin 40 MG/0.4 ML Syringe SC (11:25)
[2020-09-21] MEDS: dexAMETHasone 4 MG Tablet 6 MG PO (11:25)
--- NOTE | 2020-09-21 13:14 | PCM.PN.INT ---
Subjective: Patient did okay overnight. Patient has responded to Precedex and is tolerating BiPAP. BiPAP was increased overnight and patient has been able to be dropped to 80% FiO2. General: - - Sedated. Opens eyes to voice, but not really following a lot of commands HEENT: Atraumatic, PERRLA, EOMI, Normocephalic, - - No scleral icterus or injection noted Oral: No Gingival or Mucosal Lesions/ Ulcerations, Dry Mucosa Neck: Supple, No JVD, No Nodes, Trachea Midline Lungs: No rhonchi, No wheeze, No rales, Diminished Cardiovascular: Normal S1, Normal S2, Bradycardic Abdomen: Bowel Sounds Present, Soft, Non Tender, Non-Distended Extremities: No clubbing, No cyanosis, No edema, Capillary Refill Less than 3 Seconds Skin: No rashes, No breakdown Musculoskeletal: No Muscle Wasting Lymphatic: No Cervical, Supraclavicular, or Inguinal Adenopathy Neurological: Cranial nerves II-XII grossly intact, Neuro grossly intact, Motor Exam 5/5 strength throughout, - - Nonfocal symmetric movement. Sensation intact. Psych/Mental Status: Flat Affect Vital Signs Temp Pulse Resp BP Pulse Ox 36.6 C 57 L 24 H 88/68 L 93 09/21/20 12:00 09/21/20 12:00 09/21/20 12:00 09/21/20 12:00 09/21/20 12:00 Oxygen Flow Rate (L/min) 60 Oxygen Delivery Method Bi-pap Weight: 104.4 kg Body Mass Index (BMI) 29.4 Intake and Output for Last 24 Hours 09/19/20 09/20/20 09/21/20 23:59 23:59 23:59 Intake Total 1001.47 / 1009.47 182.14 / 195.54 172.41 / 172.41 Output Total 825 / 825 1775 / 1845 285 / 285 Balance 176.47 / 184.47 -1592.86 / -1649.46 -112.59 / -112.59 Labs (Last 48 Hours) 09/20/20 09/20/20 09/21/20 04:40 04:40 04:50 WBC 16.1 H 15.0 H RBC 4.74 4.53 L Hgb 13.6 13.3 Hct 42.6 40.8 MCV 89.9 90.1 MCH 28.7 29.4 MCHC 31.9 L 32.6 RDW Std Deviation 46.5 H 47.1 H RDW Coeff of Kerline 14.2 14.4 Plt Count 223 162 MPV 9.9 10.4 Immature Gran % (Auto) 2.100 H 1.400 H Neut % (Auto) 93.5 H 94.0 H Lymph % (Auto) 1.8 L 2.1 L [place] % (Auto) 2.1 2.3 Eos % (Auto) 0.1 0.0 Baso % (Auto) 0.4 0.2 Absolute Neuts (auto) 15.0 H 14.1 H Absolute Lymphs (auto) 0.29 L 0.32 L Nucleated RBC % 0 0 Differential Comment SCANNED SCANNED Total Bilirubin 0.50 Direct Bilirubin 0.21 AST 14 L ALT 37 Alkaline Phosphatase 88 Total Protein 7.1 Albumin 2.3 L Globulin 4.8 H 09/21/20 04:50 WBC RBC Hgb Hct MCV MCH MCHC RDW Std Deviation RDW Coeff of Kerline Plt Count MPV Immature Gran % (Auto) Neut % (Auto) Lymph % (Auto) [place] % (Auto) Eos % (Auto) Baso % (Auto) Absolute Neuts (auto) Absolute Lymphs (auto) Nucleated RBC % Differential Comment Total Bilirubin 0.50 Direct Bilirubin 0.19 AST 10 L ALT 29 Alkaline Phosphatase 89 Total Protein 7.2 Albumin 2.2 L Globulin 5.0 H Microbiology 09/14/20 15:55 Blood Culture (Wb) - Anticubital Left Blood Culture - Final No growth in 5 days. 09/14/20 15:55 Blood Culture (Wb) - Anticubital Right Blood Culture - Final No growth in 5 days. Medical Necessity - Tobacco Use Smoking Status: Former smoker Tobacco Use: Cigarettes Assessment/Plan All Active Problems Hypoxia (Acute) Pneumonia due to COVID-19 virus (Acute) Acute respiratory failure with hypoxia (Acute) RECOMMENDATIONS: 1. Continue BiPAP therapy and wean FiO2 to maintain oxygen saturations at or above 90%. 2. Continue Precedex to facilitate BiPAP compliance. 3. Continue Decadron 6 mg daily to complete 10 days. 4. Continue Lovenox for prophylaxis. 5. Gentle diuresis as tolerated by hemodynamics and renal function. IMPRESSIONS: 1. Acute hypoxemic respiratory failure secondary to COVID-19 pneumonia The patient presented to the hospital with approximately 1 week of Covid-like symptoms. He is currently maintaining appropriate oxygen saturations on BIPAP. Given his duration of symptoms and underlying multiple myeloma, the patient received convalescent plasma and completed a treatment course of remdesivir. He remains on Decadron daily to complete 10 days. Continue to wean FiO2 to maintain saturations at or above 90%. Continue attempts at gentle diuresis as tolerated by hemodynamics and renal function. Continue with least another 24 hours on current therapy and then try to wean Precedex drip. Patient is on high FiO2 and does not tolerate dyssynchrony long. 2. History of multiple myeloma on treatment/hypertension Complicates care, management, recovery and prognosis. Continue home medications as indicated. TIME: 32 minutes of critical care time, independent of procedures, was spent addressing the patient's acute hypoxemic respiratory failure, COVID-19 pneumonia, anxiety, review of all data and collaboration with the care team. (6 AM to 7 AM) [phone]: [id number] Critical care first hour
--- NOTE | 2020-09-21 14:47 | CASEMGMT ---
RN CM Note: participated in ICU interdisciplinary rounds, 80% Bipap, continues on Decadron, Precedex, Lovenox. Patient status listed as DNRCC-A, no intubation. DC Planning deferred, cm will continue to follow and assist with dc planning/care planning. Eleno STEVENSONN RN ACM
--- NOTE | 2020-09-21 16:45 | PCM.PN.ID ---
Patient Problems: Active and Suspected Problems Hypoxia (Acute) Pneumonia due to COVID-19 virus (Acute) Acute respiratory failure with hypoxia (Acute) Subjective: Sleeping, no fever - Physical Exam Vitals/I&O's: Vital Signs Temp Pulse Resp BP Pulse Ox 97.8 F 57 L 22 H 91/69 94 09/21/20 12:00 09/21/20 15:00 09/21/20 15:00 09/21/20 15:00 09/21/20 15:00 Oxygen Flow Rate (L/min) 60 Oxygen Delivery Method Bi-pap Weight: 104.4 kg Body Mass Index (BMI) 29.4 Intake and Output for Last 24 Hours 09/19/20 09/20/20 09/21/20 23:59 23:59 23:59 Intake Total 1001.47 / 1009.47 182.14 / 195.54 211.71 / 211.71 Output Total 825 / 825 1775 / 1845 285 / 285 Balance 176.47 / 184.47 -1592.86 / -1649.46 -73.29 / -73.29 General: No apparent distress Lungs: Diminished Cardiovascular: Regular rate, Regular Rhythm Abdomen: Soft, Non Tender, Non-Distended Skin: No rashes Microbiology Past 72 Hours 09/14/20 15:55 Blood Culture (Wb) - Anticubital Left Blood Culture - Final No growth in 5 days. 09/14/20 15:55 Blood Culture (Wb) - Anticubital Right Blood Culture - Final No growth in 5 days. Laboratory Results 09/21/20 04:50: WBC 15.0 H, RBC 4.53 L, Hgb 13.3, Hct 40.8, MCV 90.1, MCH 29.4, MCHC 32.6, RDW Std Deviation 47.1 H, RDW Coeff of Kerline 14.4, Plt Count 162, MPV 10.4, Immature Gran % (Auto) 1.400 H, Neut % (Auto) 94.0 H, Lymph % (Auto) 2.1 L, [place] % (Auto) 2.3, Eos % (Auto) 0.0, Baso % (Auto) 0.2, Absolute Neuts (auto) 14.1 H, Absolute Lymphs (auto) 0.32 L, Nucleated RBC % 0, Differential Comment SCANNED 09/21/20 04:50: Total Bilirubin 0.50, Direct Bilirubin 0.19, AST 10 L, ALT 29, Alkaline Phosphatase 89, Total Protein 7.2, Albumin 2.2 L, Globulin 5.0 H Current Medications Acetaminophen (Acetaminophen 325 Mg Tablet) 650 mg PO Q6H PRN PRN PRN Reason: Pain Score 1-10/Temp > 100.7 F Albuterol Sulfate (Albuterol Sulfate 8 Gm Inhaler (60 Puffs)) 2 puff INHALATION Q4H PRN PRN PRN Reason: Shortness of breath, wheezing Last Admin: 09/15/20 23:53 Dose: 2 puff Documented by: Dexamethasone (Dexamethasone 4 Mg Tablet) 6 mg PO DAILY@0800 [facility] Stop: 09/23/20 08:01 Last Admin: 09/21/20 11:25 Dose: 6 mg Documented by: Enoxaparin Sodium (Enoxaparin 40 Mg/0.4 Ml Syringe) 40 mg SC DAILY [facility] Last Admin: 09/21/20 11:25 Dose: 40 mg Documented by: Dexmedetomidine HCl 1,000 mcg/ (Sodium Chloride) 250 mls @ 13.05 mls/hr CONT INF .[id number] [facility]; Protocol Last Titration: 09/21/20 15:00 Dose: 0.5 mcg/kg/hr, 13.1 mls/hr Documented by: Lorazepam (Lorazepam 2 Mg/Ml Syringe) 0.5 mg IV Q4H PRN PRN PRN Reason: anxiety/agitation with BIPAP Ondansetron HCl (Ondansetron 4 Mg/2 Ml Vial) 4 mg IV Q8H PRN PRN PRN Reason: NAUSEA/VOMITING Polyethylene Glycol (Polyethylene Glycol 3350 17 Gm Packet) 17 gm PO DAILY PRN PRN PRN Reason: Constipation Senna/Docusate Sodium (Senna/Docusate Sodium 1 Tablet) 2 tablet PO BID PRN PRN PRN Reason: Constipation Sodium Chloride (0.9% Saline Lock 10 Ml Syringe) 10 - 40 ml IV UD PRN PRN Reason: SALINE FLUSH Last Admin: 09/20/20 10:11 Dose: 10 ml Documented by: Zolpidem Tartrate (Zolpidem Tartrate 5 Mg Tablet) 5 mg PO QHS PRN PRN PRN Reason: INSOMNIA Medical Necessity - Tobacco Use Smoking Status: Former smoker Tobacco Use: Cigarettes Route of nutrition/ use of supplements: [] Nutritional Intake: [] IV Site: [] Starks Catheter: [] - Assessment/Plan Antibiotics: [] Assessment/Plan: [] Active and Suspected Problems Hypoxia (Acute) Pneumonia due to COVID-19 virus (Acute) Acute respiratory failure with hypoxia (Acute) covid with hypoxic resp failure - on dex, completed 5 days of remdesivir and received 11/3 plasma. On 80% bipap. Will follow
[2020-09-22] VITALS (37 sets, daily range): BP systolic 98–151; BP diastolic 0–108; PULSE 56–132; RESP 12–36; TEMP 35.8–36.3; O2SAT 88–96
[2020-09-22] MEDS: Dexmedetomidine 1,000 mcg in 0.9% NS 240 mL 7.8 MCG CONT INF (02:28)
[2020-09-22 04:10] LABS: Absolute Neutrophil Count 15.9 X10^3/uL (2.0-7.7); Basophil# 0.01 X10^3/uL; Basophil% 0.1 % (0-1); Hematocrit 43.4 % (40-54); Hemoglobin 13.9 g/dL (13.0-16.5); Lymphocyte % 1.8 % (19-41); Mean Corpuscular Hgb 28.9 pg (27.0-32.0); Mean Corpuscular Volume 90.2 fL (80-94); Mean Platelet Vol. 10.6 fl (6.2-12.0); Monocyte# 0.47 X10^3/uL; Monocyte% 2.8 % (0-10); NRBC Flagged by Analyzer 0 % (0-5); Neutrophil # 15.87 X10^3/uL (2.7-7.7); Neutrophil % 94.5 % (47-70); POSITIVE DIFFERENTIAL YES; Platelet Count 172 K/mm3 (150-450); RBC Distribution Width CV 14.6 % (11.6-14.6); RBC Distribution Width SD 48.1 fl (35.1-43.9); Red Blood Count 4.81 M/mm3 (4.6-6.2); White Blood Count 16.8 K/mm3 (4.4-11.0)
[2020-09-22 04:18] LABS: Differential Indicated SCAN CRITERIA MET
[2020-09-22 04:28] LABS: Differential Comment SCANNED
[2020-09-22 04:35] LABS: ALB/GLOB Ratio 0.4 RATIO (0.9-2.4); AST(SGOT) 11 U/L (15-37); Alanine Aminotransfer ALT/SGPT 23 U/L (16-61); Albumin, Serum 2.2 g/dL (3.2-5.0); Alkaline Phosphatase 92 U/L (45-117); Anion Gap 9 (5-15); BUN 91 mg/dL (7-18); Calcium,Total 8.7 mg/dL (8.5-10.1); Chloride 104 mmol/L (98-107); Creatinine, Serum 1.11 mg/dL (0.70-1.30); EST Glomerular Filtration Rate 71 mL/min (>60); Est Glom Filt Rate - Afr Amer 86 mL/min (>60); Estimated Creatinine Clearance 82.47 ml/min; Glucose 171 mg/dL (74-106); Magnesium 3.4 mg/dL (1.6-2.6); Potassium 4.6 mmol/L (3.5-5.1); Protein, Total 7.2 g/dL (6.4-8.2); Sodium Level 139 mmol/L (136-145)
[2020-09-22] MEDS: TITRATION PARAMETER CHANGE 1 EACH IV (06:15)
--- NOTE | 2020-09-22 07:06 | PCM.PN.HOSP ---
Patient Problems: Active and Suspected Problems Hypoxia (Acute) Pneumonia due to COVID-19 virus (Acute) Acute respiratory failure with hypoxia (Acute) Reason for Visit: Follow-up: Acute hypoxic respiratory failure/COVID-19 pneumonia Subjective: Patient was seen and examined. Off Precedex momentarily. Currently on Bipap. He complains of right sided chest wall pain, worse with coughing. Blood pressures are much better. No other acute events overnight. Objective: Physical exam: Vitals/I&O's: Vital Signs Temp Pulse Resp BP Pulse Ox 96.5 F L 88 23 H 114/78 95 09/22/20 04:00 09/22/20 07:04 09/22/20 07:04 09/22/20 06:00 09/22/20 07:04 Oxygen Flow Rate (L/min) 60 Oxygen Delivery Method Airvo Weight: 102.7 kg Body Mass Index (BMI) 29.4 Intake and Output for Last 24 Hours 09/20/20 09/21/20 09/22/20 23:59 23:59 23:59 Intake Total 182.14 / 195.54 316.51 / 329.61 60.13 / 60.13 Output Total 1775 / 1845 610 / 610 400 / 400 Balance -1592.86 / -1649.46 -293.49 / -280.39 -339.87 / -339.87 General: Alert, Oriented x3, Cooperative, - - on 60L oxygen HEENT: Atraumatic, PERRLA, EOMI, Normocephalic Oral: Moist Mucosa Neck: Supple Lungs: Diminished Cardiovascular: Regular rate, Regular Rhythm, Normal S1, Normal S2, Tachycardic Abdomen: Bowel Sounds Present, Soft, Non Tender, Non-Distended, No Hepato-splenomegaly Extremities: No edema Skin: No rashes Musculoskeletal: No Tenderness to Palpation of Joints or Extremities Lymphatic: No Cervical, Supraclavicular, or Inguinal Adenopathy Neurological: Cranial nerves II-XII grossly intact, Neuro grossly intact Psych/Mental Status: Normal Affect, Appropriate Microbiology Past 72 Hours 09/14/20 15:55 Blood Culture (Wb) - Anticubital Left Blood Culture - Final No growth in 5 days. 09/14/20 15:55 Blood Culture (Wb) - Anticubital Right Blood Culture - Final No growth in 5 days. Laboratory Results 09/22/20 04:00: WBC 16.8 H, RBC 4.81, Hgb 13.9, Hct 43.4, MCV 90.2, MCH 28.9, MCHC 32.0, RDW Std Deviation 48.1 H, RDW Coeff of Kreline 14.6, Plt Count 172, MPV 10.6, Immature Gran % (Auto) 0.800, Neut % (Auto) 94.5 H, Lymph % (Auto) 1.8 L, [place] % (Auto) 2.8, Eos % (Auto) 0.0, Baso % (Auto) 0.1, Absolute Neuts (auto) 15.9 H, Absolute Lymphs (auto) 0.30 L, Nucleated RBC % 0, Differential Comment SCANNED 09/22/20 04:00: Sodium 139, Potassium 4.6, Chloride 104, Carbon Dioxide 26.0, Anion Gap 9, BUN 91 H, Creatinine 1.11, Estim Creat Clear Calc 82.47, Est GFR (MDRD) Af Amer 86, Est GFR (MDRD) Non-Af 71, BUN/Creatinine Ratio 82.0 H, Glucose 171 H, Calcium 8.7, Magnesium 3.4 H, Total Bilirubin 0.40, AST 11 L, ALT 23, Alkaline Phosphatase 92, Total Protein 7.2, Albumin 2.2 L, Globulin 5.0 H, Albumin/Globulin Ratio 0.4 L Current Medications Acetaminophen (Acetaminophen 325 Mg Tablet) 650 mg PO Q6H PRN PRN PRN Reason: Pain Score 1-10/Temp > 100.7 F Albuterol Sulfate (Albuterol Sulfate 8 Gm Inhaler (60 Puffs)) 2 puff INHALATION Q4H PRN PRN PRN Reason: Shortness of breath, wheezing Last Admin: 09/15/20 23:53 Dose: 2 puff Documented by: Dexamethasone (Dexamethasone 4 Mg Tablet) 6 mg PO DAILY@0800 [facility] Stop: 09/23/20 08:01 Last Admin: 09/21/20 11:25 Dose: 6 mg Documented by: Enoxaparin Sodium (Enoxaparin 40 Mg/0.4 Ml Syringe) 40 mg SC DAILY [facility] Last Admin: 09/21/20 11:25 Dose: 40 mg Documented by: Dexmedetomidine HCl 1,000 mcg/ (Sodium Chloride) 250 mls @ 12.875 mls/hr CONT INF .[id number] [facility]; Protocol Last Titration: 09/22/20 06:00 Dose: 0.2 mcg/kg/hr, 5.2 mls/hr Documented by: Lorazepam (Lorazepam 2 Mg/Ml Syringe) 0.5 mg IV Q4H PRN PRN PRN Reason: anxiety/agitation with BIPAP Ondansetron HCl (Ondansetron 4 Mg/2 Ml Vial) 4 mg IV Q8H PRN PRN PRN Reason: NAUSEA/VOMITING Polyethylene Glycol (Polyethylene Glycol 3350 17 Gm Packet) 17 gm PO DAILY PRN PRN PRN Reason: Constipation Senna/Docusate Sodium (Senna/Docusate Sodium 1 Tablet) 2 tablet PO BID PRN PRN PRN Reason: Constipation Sodium Chloride (0.9% Saline Lock 10 Ml Syringe) 10 - 40 ml IV UD PRN PRN Reason: SALINE FLUSH Last Admin: 09/20/20 10:11 Dose: 10 ml Documented by: Zolpidem Tartrate (Zolpidem Tartrate 5 Mg Tablet) 5 mg PO QHS PRN PRN PRN Reason: INSOMNIA STROKE Vital Signs/Narrative: Vital Signs Temp Pulse Resp BP Pulse Ox 09/22/20 07:04 88 23 H 95 09/22/20 06:00 74 22 H 114/78 93 09/22/20 05:14 63 20 H 94 09/22/20 05:00 65 23 H 103/77 93 09/22/20 04:00 96.5 F L 85 32 H 109/0 L 91 09/22/20 03:42 56 L Medical Necessity - Tobacco Use Smoking Status: Former smoker Tobacco Use: Cigarettes Assessment/Plan All Active Problems Hypoxia (Acute) Pneumonia due to COVID-19 virus (Acute) Acute respiratory failure with hypoxia (Acute) 1. Acute hypoxic respiratory failure secondary to acute COVID-19 pneumonia, worsening Currently on Airvo/Bipap, continue with breathing treatments, PO steroids, encourage use of incentive spirometer. Wean off oxygen for SPO2 more than 94%\ 2. Severe sepsis secondary to acute COVID-19 pneumonia, very minimally improved Admitting lactic acid of 2.6. Status post convalescent plasma and remdesivir on 09/16/20 We will continue on p.o. dexamethasone ID and pulmonology following 3. Hypertension, now relatively hypotensive secondary to use of Precedex Map remains above 65, off lisinopril, will continue to monitor 4. Multiple myeloma, follow-up with outpatient plan 5. DVT prophylaxis with Lovenox subcu Inpatient E&M: [id number] [facility] Hosp L3
--- NOTE | 2020-09-22 07:23 | PN_ITS ---
Subjective: Patient slightly improved overnight. Patient was able to be weaned to Airvo with good response. Patient continues on Precedex therapy. Patient is denying any pain this morning, but does state that he feels thirsty. General: Alert, Cooperative, No apparent distress, - - Slightly slow to respond, but responds appropriately HEENT: Atraumatic, PERRLA, EOMI, Normocephalic, - - No scleral icterus or injection noted Oral: Moist Mucosa, No Gingival or Mucosal Lesions/ Ulcerations Neck: Supple, No JVD, No Nodes, Trachea Midline Lungs: No rhonchi, No rales, Diminished, Wheezes - Sporadic Cardiovascular: Regular rate, Regular Rhythm, Normal S1, Normal S2, No murmurs, No rub noted, No Gallop Abdomen: Bowel Sounds Present, Soft, Non Tender, Non-Distended Extremities: No clubbing, No cyanosis, Edema - Trace lower extremity Skin: No rashes, No breakdown Musculoskeletal: No Tenderness to Palpation of Joints or Extremities Lymphatic: No Cervical, Supraclavicular, or Inguinal Adenopathy Neurological: Cranial nerves II-XII grossly intact, Neuro grossly intact Psych/Mental Status: Flat Affect Vital Signs Temp Pulse Resp BP Pulse Ox 35.8 C L 88 23 H 121/87 H 95 09/22/20 04:00 09/22/20 07:04 09/22/20 07:04 09/22/20 07:00 09/22/20 07:04 Oxygen Flow Rate (L/min) 60 Oxygen Delivery Method Airvo Weight: 102.7 kg Body Mass Index (BMI) 29.4 Intake and Output for Last 24 Hours 09/20/20 09/21/20 09/22/20 23:59 23:59 23:59 Intake Total 182.14 / 195.54 316.51 / 329.61 65.33 / 65.33 Output Total 1775 / 1845 610 / 610 400 / 400 Balance -1592.86 / -1649.46 -293.49 / -280.39 -334.67 / -334.67 Labs (Last 48 Hours) 09/21/20 09/21/20 09/22/20 04:50 04:50 04:00 WBC 15.0 H 16.8 H RBC 4.53 L 4.81 Hgb 13.3 13.9 Hct 40.8 43.4 MCV 90.1 90.2 MCH 29.4 28.9 MCHC 32.6 32.0 RDW Std Deviation 47.1 H 48.1 H RDW Coeff of Kerline 14.4 14.6 Plt Count 162 172 MPV 10.4 10.6 Immature Gran % (Auto) 1.400 H 0.800 Neut % (Auto) 94.0 H 94.5 H Lymph % (Auto) 2.1 L 1.8 L [place] % (Auto) 2.3 2.8 Eos % (Auto) 0.0 0.0 Baso % (Auto) 0.2 0.1 Absolute Neuts (auto) 14.1 H 15.9 H Absolute Lymphs (auto) 0.32 L 0.30 L Nucleated RBC % 0 0 Differential Comment SCANNED SCANNED Sodium Potassium Chloride Carbon Dioxide Anion Gap BUN Creatinine Estim Creat Clear Calc Est GFR (MDRD) Af Amer Est GFR (MDRD) Non-Af BUN/Creatinine Ratio Glucose Calcium Magnesium Total Bilirubin 0.50 Direct Bilirubin 0.19 AST 10 L ALT 29 Alkaline Phosphatase 89 Total Protein 7.2 Albumin 2.2 L Globulin 5.0 H Albumin/Globulin Ratio 09/22/20 04:00 WBC RBC Hgb Hct MCV MCH MCHC RDW Std Deviation RDW Coeff of Kerline Plt Count MPV Immature Gran % (Auto) Neut % (Auto) Lymph % (Auto) [place] % (Auto) Eos % (Auto) Baso % (Auto) Absolute Neuts (auto) Absolute Lymphs (auto) Nucleated RBC % Differential Comment Sodium 139 Potassium 4.6 Chloride 104 Carbon Dioxide 26.0 Anion Gap 9 BUN 91 H Creatinine 1.11 Estim Creat Clear Calc 82.47 Est GFR (MDRD) Af Amer 86 Est GFR (MDRD) Non-Af 71 BUN/Creatinine Ratio 82.0 H Glucose 171 H Calcium 8.7 Magnesium 3.4 H Total Bilirubin 0.40 Direct Bilirubin AST 11 L ALT 23 Alkaline Phosphatase 92 Total Protein 7.2 Albumin 2.2 L Globulin 5.0 H Albumin/Globulin Ratio 0.4 L Microbiology 09/14/20 15:55 Blood Culture (Wb) - Anticubital Left Blood Culture - Final No growth in 5 days. 09/14/20 15:55 Blood Culture (Wb) - Anticubital Right Blood Culture - Final No growth in 5 days. Medical Necessity - Tobacco Use Smoking Status: Former smoker Tobacco Use: Cigarettes Assessment/Plan All Active Problems Hypoxia (Acute) Pneumonia due to COVID-19 virus (Acute) Acute respiratory failure with hypoxia (Acute) RECOMMENDATIONS: 1. Continue BiPAP therapy for rescue and wean FiO2 to maintain oxygen saturations at or above 90%. 2. Okay to hold Precedex therapy temporarily to see if p.o. intake could be accomplished. 3. Continue Decadron 6 mg daily to complete 10 days. 4. Continue Lovenox for prophylaxis. 5. Hold on diuretics for now given increase in BUN and creatinine. IMPRESSIONS: 1. Acute hypoxemic respiratory failure secondary to COVID-19 pneumonia The patient presented to the hospital with approximately 1 week of Covid- like symptoms. He is currently maintaining appropriate oxygen saturations on BIPAP. Given his duration of symptoms and underlying multiple myeloma, the patient received convalescent plasma and completed a treatment course of remdesivir. He remains on Decadron daily to complete 10 days. Continue to wean FiO2 to maintain saturations at or above 90%. Unable to diurese today given increase in hemodynamics. Patient does appear to be somewhat dry and may benefit from some p.o. hydration. Will attempt to decrease Precedex to see if this can be accomplished. Would not be surprised if patient requires BiPAP therapy for rescue, especially with sleep 2. History of multiple myeloma on treatment/hypertension Complicates care, management, recovery and prognosis. Continue home medications as indicated. TIME: 35 minutes of critical care time, independent of procedures, was spent addressing the patient's acute hypoxemic respiratory failure, COVID-19 pneumonia, anxiety, review of all data and collaboration with the care team. (5:45 AM to 6:45 AM) [phone]: [id number] Critical care first hour
[2020-09-22] MEDS: dexAMETHasone 4 MG Tablet 6 MG PO (08:14)
[2020-09-22] MEDS: Acetaminophen 325 MG Tablet 650 MG PO (08:14)
[2020-09-22] MEDS: Enoxaparin 40 MG/0.4 ML Syringe SC (08:14)
--- NOTE | 2020-09-22 10:25 | CASEMGMT ---
RN CM Note: participated in ICU interdisciplinary rounds. Patient tolerating Airvo 85%. Remains on Presedex, Lovenox. PT/OT to work with patient today as tolerated with his oxygen needs. Regular diet, increase po hydration. DC Planning: deferred @ this time. Eleno STEVENSONN RN ACM
[2020-09-22] MEDS: Senna/Docusate Sodium 1 Tablet 2 TABLET PO (11:34)
[2020-09-22] MEDS: oxyCODONE 5 MG Tablet PO (11:34)
[2020-09-23] VITALS (38 sets, daily range): BP systolic 111–152; BP diastolic 79–106; PULSE 60–110; RESP 12–37; TEMP 36.1–37.2; O2SAT 88–96
[2020-09-23 06:02] LABS: Absolute Lymphocyte Count 0.34 X10^3/uL (0.83-4.51); Absolute Neutrophil Count 18.5 X10^3/uL (2.0-7.7); Basophil# 0.03 X10^3/uL; Basophil% 0.2 % (0-1); Differential Indicated SCAN CRITERIA MET; Hematocrit 42.6 % (40-54); Hemoglobin 13.5 g/dL (13.0-16.5); Lymphocyte # 0.34 X10^3/ul (4.0); Lymphocyte % 1.7 % (19-41); Mean Corp Hgb Conc 31.7 g/dL (32-36); Mean Corpuscular Hgb 28.2 pg (27.0-32.0); Mean Corpuscular Volume 89.1 fL (80-94); Mean Platelet Vol. 10.1 fl (6.2-12.0); Monocyte# 0.57 X10^3/uL; Monocyte% 2.9 % (0-10); NRBC Flagged by Analyzer 0 % (0-5); Neutrophil % 94.2 % (47-70); POSITIVE DIFFERENTIAL YES; Platelet Count 155 K/mm3 (150-450); RBC Distribution Width CV 14.6 % (11.6-14.6); RBC Distribution Width SD 48.1 fl (35.1-43.9); Red Blood Count 4.78 M/mm3 (4.6-6.2); White Blood Count 19.6 K/mm3 (4.4-11.0)
[2020-09-23] MEDS: TITRATION PARAMETER CHANGE 1 EACH IV (06:22)
[2020-09-23 06:36] LABS: Differential Comment SCANNED
--- NOTE | 2020-09-23 07:20 | PN_ITS ---
Patient Problems: Active and Suspected Problems Hypoxia (Acute) Pneumonia due to COVID-19 virus (Acute) Acute respiratory failure with hypoxia (Acute) Reason for Visit: Follow-up: Acute hypoxic respiratory failure/COVID-19 pneumonia Subjective: Patient was seen and examined. Patient has been anxious, complained of chest tightness. Vitals remained stable. EKG showed no acute ST changes. FiO2 and oxygen requirements have gone up. Objective: Physical exam: General: Alert, Oriented x3, Cooperative, - - on Airvo/Bipap HEENT: Atraumatic, PERRLA, EOMI, Normocephalic Oral: Moist Mucosa Neck: Supple Lungs: Diminished Cardiovascular: Regular rate, Regular Rhythm, Normal S1, Normal S2, Tachycardic Abdomen: Bowel Sounds Present, Soft, Non Tender, Non-Distended, No Hepato- splenomegaly Extremities: No edema Skin: No rashes Musculoskeletal: No Tenderness to Palpation of Joints or Extremities Lymphatic: No Cervical, Supraclavicular, or Inguinal Adenopathy Neurological: Cranial nerves II-XII grossly intact, Neuro grossly intact Psych/Mental Status: Normal Affect, Appropriate Vitals/I&O's: Vital Signs Temp Pulse Resp BP Pulse Ox 97.6 F L 105 H 20 H 111/79 91 09/23/20 04:00 09/23/20 07:00 09/23/20 07:00 09/23/20 07:00 09/23/20 07:00 Oxygen Flow Rate (L/min) 60 Oxygen Delivery Method Airvo Weight: 103.8 kg Body Mass Index (BMI) 29.4 Intake and Output for Last 24 Hours 09/21/20 09/22/20 09/23/20 23:59 23:59 23:59 Intake Total 316.51 / 329.61 1632.97 / 1645.87 323.84 / 323.84 Output Total 610 / 610 2150 / 2150 400 / 400 Balance -293.49 / -280.39 -517.03 / -504.13 -76.16 / -76.16 Microbiology Past 72 Hours 09/14/20 15:55 Blood Culture (Wb) - Anticubital Left Blood Culture - Final No growth in 5 days. 09/14/20 15:55 Blood Culture (Wb) - Anticubital Right Blood Culture - Final No growth in 5 days. Laboratory Results 09/23/20 05:40: WBC 19.6 H, RBC 4.78, Hgb 13.5, Hct 42.6, MCV 89.1, MCH 28.2, MCHC 31.7 L, RDW Std Deviation 48.1 H, RDW Coeff of Kerline 14.6, Plt Count 155, MPV 10.1, Immature Gran % (Auto) 1.000 H, Neut % (Auto) 94.2 H, Lymph % (Auto) 1.7 L , [place] % (Auto) 2.9, Eos % (Auto) 0.0, Baso % (Auto) 0.2, Absolute Neuts (auto) 18.5 H, Absolute Lymphs (auto) 0.34 L, Nucleated RBC % 0, Differential Comment SCANNED 09/23/20 05:40: Sodium Cancelled, Potassium Cancelled, Chloride Cancelled, Carbon Dioxide Cancelled, Anion Gap Cancelled, BUN Cancelled, Creatinine Cancelled, Estim Creat Clear Calc Cancelled, Est GFR (MDRD) Af Amer Cancelled, Est GFR (MDRD) Non-Af Cancelled, BUN/Creatinine Ratio Cancelled, Glucose Cancelled, Calcium Cancelled Current Medications Acetaminophen (Acetaminophen 325 Mg Tablet) 650 mg PO Q6H PRN PRN PRN Reason: Pain Score 1-10/Temp > 100.7 F Last Admin: 09/22/20 08:14 Dose: 650 mg Documented by: Albuterol Sulfate (Albuterol Sulfate 8 Gm Inhaler (60 Puffs)) 2 puff INHALATION Q4H PRN PRN PRN Reason: Shortness of breath, wheezing Last Admin: 09/15/20 23:53 Dose: 2 puff Documented by: Dexamethasone (Dexamethasone 4 Mg Tablet) 6 mg PO DAILY@0800 [facility] Stop: 09/23/20 08:01 Last Admin: 09/22/20 08:14 Dose: 6 mg Documented by: Enoxaparin Sodium (Enoxaparin 40 Mg/0.4 Ml Syringe) 40 mg SC DAILY [facility] Last Admin: 09/22/20 08:14 Dose: 40 mg Documented by: Dexmedetomidine HCl 1,000 mcg/ (Sodium Chloride) 250 mls @ 12.975 mls/hr CONT INF .[id number] [facility]; Protocol Last Titration: 09/23/20 05:45 Dose: 0.3 mcg/kg/hr, 7.7 mls/hr Documented by: Lorazepam (Lorazepam 2 Mg/Ml Syringe) 0.5 mg IV Q4H PRN PRN PRN Reason: anxiety/agitation with BIPAP Morphine Sulfate (Morphine 2 Mg/Ml Syringe) 1 mg IV Q4H PRN PRN PRN Reason: Pain Score 6-10 Ondansetron HCl (Ondansetron 4 Mg/2 Ml Vial) 4 mg IV Q8H PRN PRN PRN Reason: NAUSEA/VOMITING Polyethylene Glycol (Polyethylene Glycol 3350 17 Gm Packet) 17 gm PO DAILY PRN PRN PRN Reason: Constipation Senna/Docusate Sodium (Senna/Docusate Sodium 1 Tablet) 2 tablet PO BID PRN PRN PRN Reason: Constipation Last Admin: 09/22/20 11:34 Dose: 2 tablet Documented by: Sodium Chloride (0.9% Saline Lock 10 Ml Syringe) 10 - 40 ml IV UD PRN PRN Reason: SALINE FLUSH Last Admin: 09/20/20 10:11 Dose: 10 ml Documented by: Zolpidem Tartrate (Zolpidem Tartrate 5 Mg Tablet) 5 mg PO QHS PRN PRN PRN Reason: INSOMNIA STROKE Vital Signs/Narrative: Vital Signs Temp Pulse Resp BP Pulse Ox 09/23/20 07:00 105 H 20 H 111/79 91 09/23/20 06:00 70 17 113/86 H 92 09/23/20 05:00 60 22 H 114/89 H 92 09/23/20 04:01 64 19 H 95 09/23/20 04:00 97.6 F L 62 21 H 119/81 H 93 09/23/20 03:52 62 Medical Necessity - Tobacco Use Smoking Status: Former smoker Tobacco Use: Cigarettes Assessment/Plan All Active Problems Hypoxia (Acute) Pneumonia due to COVID-19 virus (Acute) Acute respiratory failure with hypoxia (Acute) 1. Acute hypoxic respiratory failure secondary to acute COVID-19 pneumonia, worsening Currently on Airvo/Bipap, continue with breathing treatments, PO steroids, encourage use of incentive spirometer. Wean off oxygen for SPO2 more than 94% 2. Anxiety disorder, persistent, on Precedex Will do a trial of IV ativan 0.5mg TID, wean off Precedex 2. Severe sepsis secondary to acute COVID-19 pneumonia, very minimally improved Admitting lactic acid of 2.6. Completed dexamethasone, convalescent plasma and remdesivir on 09/16/20 ID and pulmonology following 3. Hypertension, now relatively hypotensive secondary to use of Precedex Map remains above 65, off lisinopril, will continue to monitor 4. Multiple myeloma, follow-up with outpatient plan 5. DVT prophylaxis with Lovenox subcu Inpatient E&M: [id number] Subs Hosp L3
--- NOTE | 2020-09-23 07:34 | PCM.PN.INT ---
Subjective: Patient did okay overnight. Patient did require Precedex to tolerate BiPAP therapy overnight. Otherwise, patient reports subjective improvement this morning after being switched to Airvo. Patient is requesting a p.o. diet. General: Alert, Oriented x3, Cooperative, - - Mild to moderate conversational dyspnea HEENT: Atraumatic, PERRLA, EOMI, Normocephalic, - - Voluntarily holds left eye closed Oral: Moist Mucosa, No Gingival or Mucosal Lesions/ Ulcerations Neck: Supple, No JVD, No Nodes, Trachea Midline Lungs: No rhonchi, No wheeze, No rales, Diminished, - - Symmetric expansion. Cardiovascular: Normal S1, Normal S2, No murmurs, No rub noted, No Gallop, Tachycardic Abdomen: Bowel Sounds Present, Soft, Non Tender, Non-Distended Extremities: No clubbing, No cyanosis, No edema, Capillary Refill Less than 3 Seconds Skin: - - No change from previous Musculoskeletal: No Tenderness to Palpation of Joints or Extremities Lymphatic: No Cervical, Supraclavicular, or Inguinal Adenopathy Neurological: Cranial nerves II-XII grossly intact, Neuro grossly intact, Motor Exam 5/5 strength throughout Psych/Mental Status: Normal Affect, Appropriate Vital Signs Temp Pulse Resp BP Pulse Ox 36.4 C L 105 H 20 H 111/79 91 09/23/20 04:00 09/23/20 07:00 09/23/20 07:00 09/23/20 07:00 09/23/20 07:00 Oxygen Flow Rate (L/min) 60 Oxygen Delivery Method Airvo Weight: 103.8 kg Body Mass Index (BMI) 29.4 Intake and Output for Last 24 Hours 09/21/20 09/22/20 09/23/20 23:59 23:59 23:59 Intake Total 316.51 / 329.61 1632.97 / 1645.87 323.84 / 323.84 Output Total 610 / 610 2150 / 2150 400 / 400 Balance -293.49 / -280.39 -517.03 / -504.13 -76.16 / -76.16 Labs (Last 48 Hours) 09/22/20 09/22/20 09/23/20 04:00 04:00 05:40 WBC 16.8 H 19.6 H RBC 4.81 4.78 Hgb 13.9 13.5 Hct 43.4 42.6 MCV 90.2 89.1 MCH 28.9 28.2 MCHC 32.0 31.7 L RDW Std Deviation 48.1 H 48.1 H RDW Coeff of Kerline 14.6 14.6 Plt Count 172 155 MPV 10.6 10.1 Immature Gran % (Auto) 0.800 1.000 H Neut % (Auto) 94.5 H 94.2 H Lymph % (Auto) 1.8 L 1.7 L [place] % (Auto) 2.8 2.9 Eos % (Auto) 0.0 0.0 Baso % (Auto) 0.1 0.2 Absolute Neuts (auto) 15.9 H 18.5 H Absolute Lymphs (auto) 0.30 L 0.34 L Nucleated RBC % 0 0 Differential Comment SCANNED SCANNED Sodium 139 Potassium 4.6 Chloride 104 Carbon Dioxide 26.0 Anion Gap 9 BUN 91 H Creatinine 1.11 Estim Creat Clear Calc 82.47 Est GFR (MDRD) Af Amer 86 Est GFR (MDRD) Non-Af 71 BUN/Creatinine Ratio 82.0 H Glucose 171 H Calcium 8.7 Magnesium 3.4 H Total Bilirubin 0.40 AST 11 L ALT 23 Alkaline Phosphatase 92 Total Protein 7.2 Albumin 2.2 L Globulin 5.0 H Albumin/Globulin Ratio 0.4 L 09/23/20 05:40 WBC RBC Hgb Hct MCV MCH MCHC RDW Std Deviation RDW Coeff of Kerline Plt Count MPV Immature Gran % (Auto) Neut % (Auto) Lymph % (Auto) [place] % (Auto) Eos % (Auto) Baso % (Auto) Absolute Neuts (auto) Absolute Lymphs (auto) Nucleated RBC % Differential Comment Sodium Cancelled Potassium Cancelled Chloride Cancelled Carbon Dioxide Cancelled Anion Gap Cancelled BUN Cancelled Creatinine Cancelled Estim Creat Clear Calc Cancelled Est GFR (MDRD) Af Amer Cancelled Est GFR (MDRD) Non-Af Cancelled BUN/Creatinine Ratio Cancelled Glucose Cancelled Calcium Cancelled Magnesium Total Bilirubin AST ALT Alkaline Phosphatase Total Protein Albumin Globulin Albumin/Globulin Ratio Medical Necessity - Tobacco Use Smoking Status: Former smoker Tobacco Use: Cigarettes Assessment/Plan All Active Problems Hypoxia (Acute) Pneumonia due to COVID-19 virus (Acute) Acute respiratory failure with hypoxia (Acute) RECOMMENDATIONS: 1. Continue BiPAP therapy for sleep/rescue and wean FiO2 to maintain oxygen saturations at or above 90%. 2. Okay to hold Precedex therapy while on Airvo to see if p.o. intake could be accomplished. 3. Continue Decadron 6 mg daily to complete 10 days. 4. Continue Lovenox for prophylaxis. 5. Await BMP to see if diuretic therapy could be indicated IMPRESSIONS: 1. Acute hypoxemic respiratory failure secondary to COVID-19 pneumonia The patient presented to the hospital with approximately 1 week of Covid-like symptoms. He is currently maintaining appropriate oxygen saturations on BIPAP. Given his duration of symptoms and underlying multiple myeloma, the patient received convalescent plasma and completed a treatment course of remdesivir. He remains on Decadron daily to complete 10 days. Continue to wean FiO2 to maintain saturations at or above 90%. Reevaluate for diuresis once chemistries are available. Patient does appear to be somewhat dry and may benefit from some p.o. hydration. Will attempt to decrease Precedex, especially while on Airvo, to see if this can be accomplished. Would not be surprised if patient requires BiPAP therapy for rescue, especially with sleep 2. History of multiple myeloma on treatment/hypertension Complicates care, management, recovery and prognosis. Continue home medications as indicated. TIME: 33 minutes of critical care time, independent of procedures, was spent addressing the patient's acute hypoxemic respiratory failure, COVID-19 pneumonia, anxiety, review of all data and collaboration with the care team. (6 AM to 7 AM) [phone]: [id number] Critical care first hour
[2020-09-23] MEDS: Enoxaparin 40 MG/0.4 ML Syringe SC (08:49)
[2020-09-23] MEDS: dexAMETHasone 4 MG Tablet 6 MG PO (08:49)
--- NOTE | 2020-09-23 09:22 | EKG12_ITS ---
Test Reason : CP Blood Pressure : / mmHG Vent. Rate : 114 BPM Atrial Rate : 114 BPM P-R Int : 156 ms QRS Dur : 088 ms QT Int : 296 ms P-R-T Axes : 048 000 006 degrees QTc Int : 407 ms Sinus tachycardia Otherwise normal ECG When compared with ECG of 14-SEP-2020 15:59, No significant change was found Confirmed by FREDY MCINTYRE, SHREYAS ([id number]), newspaper managing editor GARY MCHUGH ([id number]) on 09/28/2020 1:15:03 PM Referred By: BRIGETTE Confirmed By:ALANNAH DANIEL MD
[2020-09-23] MEDS: Morphine 2 MG/ML Syringe 1 MG IV (09:28)
[2020-09-23] MEDS: Dexmedetomidine 1,000 mcg in 0.9% NS 240 mL 13 MCG CONT INF (09:45)
[2020-09-23] MEDS: LORazepam 2 MG/ML Syringe 0.5 MG IV ×2 (11:42→16:59)
[2020-09-23 12:19] LABS: Anion Gap 7 (5-15); BUN 58 mg/dL (7-18); BUN/Creat Ratio 61.6 RATIO (10-20); Calcium,Total 9.6 mg/dL (8.5-10.1); Chloride 105 mmol/L (98-107); Creatinine, Serum 0.94 mg/dL (0.70-1.30); EST Glomerular Filtration Rate 86 mL/min (>60); Est Glom Filt Rate - Afr Amer 104 mL/min (>60); Estimated Creatinine Clearance 97.38 ml/min; Glucose 190 mg/dL (74-106); Potassium 4.9 mmol/L (3.5-5.1); Sodium Level 139 mmol/L (136-145)
--- NOTE | 2020-09-23 12:55 | RAD_ITS ---
STUDY: X-RAY CHEST REASON FOR EXAM: Male, 60 years old. SOB, +COVID, COVID PNEUMONIA TECHNIQUE: Single AP portable view of the chest. COMPARISON: Comparison is made with prior study dated 09/14/2020. FINDINGS: EKG electrodes are seen. Since prior study, there has been a progression of the bilateral airspace disease worse in the left hemithorax. There is no demonstrated pleural abnormality. Normal size heart. Normal mediastinum and chen. Normal visualized pulmonary arteries. There is atherosclerotic calcification of the aortic arch with tortuosity. There are diffuse degenerative changes of the visualized thoracic spine. Normal visualized ribs, clavicles, and shoulders. There is no demonstrated abnormality of the visualized soft tissue structures of the upper abdomen. RAD/Chest 1 View (Portable) IMPRESSION: Progressive bilateral pulmonary infiltrates as compared to prior study. Electronically Signed: [place], at 15:25 EST , Service support ,
[2020-09-23] MEDS: Senna/Docusate Sodium 1 Tablet 2 TABLET PO (13:54)
--- NOTE | 2020-09-23 15:54 | PCM.PN.ID ---
Patient Problems: Active and Suspected Problems Hypoxia (Acute) Pneumonia due to COVID-19 virus (Acute) Acute respiratory failure with hypoxia (Acute) Subjective: On bipap, feeling a little better, no fever - Physical Exam Vitals/I&O's: Vital Signs Temp Pulse Resp BP Pulse Ox 97.6 F L 77 20 H 115/91 H 93 09/23/20 14:00 09/23/20 15:20 09/23/20 15:00 09/23/20 15:00 09/23/20 15:00 Oxygen Flow Rate (L/min) 96 Oxygen Delivery Method Bi-pap Weight: 103.8 kg Body Mass Index (BMI) 29.4 Intake and Output for Last 24 Hours 09/21/20 09/22/20 09/23/20 23:59 23:59 23:59 Intake Total 316.51 / 329.61 1632.97 / 1645.87 747.60 / 747.60 Output Total 610 / 610 2150 / 2150 1075 / 1075 Balance -293.49 / -280.39 -517.03 / -504.13 -327.40 / -327.40 General: Alert, Cooperative, No apparent distress Lungs: Diminished Cardiovascular: Regular rate, Regular Rhythm Abdomen: Soft, Non Tender, Non-Distended Skin: No rashes Laboratory Results 09/23/20 05:40: WBC 19.6 H, RBC 4.78, Hgb 13.5, Hct 42.6, MCV 89.1, MCH 28.2, MCHC 31.7 L, RDW Std Deviation 48.1 H, RDW Coeff of Kerline 14.6, Plt Count 155, MPV 10.1, Immature Gran % (Auto) 1.000 H, Neut % (Auto) 94.2 H, Lymph % (Auto) 1.7 L, [place] % (Auto) 2.9, Eos % (Auto) 0.0, Baso % (Auto) 0.2, Absolute Neuts (auto) 18.5 H, Absolute Lymphs (auto) 0.34 L, Nucleated RBC % 0, Differential Comment SCANNED 09/23/20 05:40: Sodium Cancelled, Potassium Cancelled, Chloride Cancelled, Carbon Dioxide Cancelled, Anion Gap Cancelled, BUN Cancelled, Creatinine Cancelled, Estim Creat Clear Calc Cancelled, Est GFR (MDRD) Af Amer Cancelled, Est GFR (MDRD) Non-Af Cancelled, BUN/Creatinine Ratio Cancelled, Glucose Cancelled, Calcium Cancelled 09/23/20 12:00: Sodium 139, Potassium 4.9, Chloride 105, Carbon Dioxide 27.0, Anion Gap 7, BUN 58 H, Creatinine 0.94, Estim Creat Clear Calc 97.38, Est GFR (MDRD) Af Amer 104, Est GFR (MDRD) Non-Af 86, BUN/Creatinine Ratio 61.6 H, Glucose 190 H, Calcium 9.6 Current Medications Acetaminophen (Acetaminophen 325 Mg Tablet) 650 mg PO Q6H PRN PRN PRN Reason: Pain Score 1-10/Temp > 100.7 F Last Admin: 09/22/20 08:14 Dose: 650 mg Documented by: Albuterol Sulfate (Albuterol Sulfate 8 Gm Inhaler (60 Puffs)) 2 puff INHALATION Q4H PRN PRN PRN Reason: Shortness of breath, wheezing Last Admin: 09/15/20 23:53 Dose: 2 puff Documented by: Enoxaparin Sodium (Enoxaparin 40 Mg/0.4 Ml Syringe) 40 mg SC DAILY DIONNE Last Admin: 09/23/20 08:49 Dose: 40 mg Documented by: Furosemide (Furosemide 40 Mg/4 Ml Vial) 40 mg IV X1 ONE Stop: 09/23/20 15:47 Dexmedetomidine HCl 1,000 mcg/ (Sodium Chloride) 250 mls @ 12.975 mls/hr CONT INF .[id number] REPLACED BY [facility]; Protocol Last Titration: 09/23/20 15:00 Dose: 0.6 mcg/kg/hr, 15.6 mls/hr Documented by: Lorazepam (Lorazepam 2 Mg/Ml Syringe) 0.5 mg IV TID@0200,1000,1800 REPLACED BY [facility] Morphine Sulfate (Morphine 2 Mg/Ml Syringe) 1 mg IV Q4H PRN PRN PRN Reason: Pain Score 6-10 Last Admin: 09/23/20 09:28 Dose: 1 mg Documented by: Ondansetron HCl (Ondansetron 4 Mg/2 Ml Vial) 4 mg IV Q8H PRN PRN PRN Reason: NAUSEA/VOMITING Polyethylene Glycol (Polyethylene Glycol 3350 17 Gm Packet) 17 gm PO DAILY PRN PRN PRN Reason: Constipation Senna/Docusate Sodium (Senna/Docusate Sodium 1 Tablet) 2 tablet PO BID PRN PRN PRN Reason: Constipation Last Admin: 09/23/20 13:54 Dose: 2 tablet Documented by: Sodium Chloride (0.9% Saline Lock 10 Ml Syringe) 10 - 40 ml IV UD PRN PRN Reason: SALINE FLUSH Last Admin: 09/20/20 10:11 Dose: 10 ml Documented by: Zolpidem Tartrate (Zolpidem Tartrate 5 Mg Tablet) 5 mg PO QHS PRN PRN PRN Reason: INSOMNIA Medical Necessity - Tobacco Use Smoking Status: Former smoker Tobacco Use: Cigarettes Route of nutrition/ use of supplements: [] Nutritional Intake: [] IV Site: [] Starks Catheter: [] - Assessment/Plan Antibiotics: [] Assessment/Plan: [] Active and Suspected Problems Hypoxia (Acute) Pneumonia due to COVID-19 virus (Acute) Acute respiratory failure with hypoxia (Acute) covid with hypoxic resp failure - on dex, completed 5 days of remdesivir and received 09/15 plasma. On 75% bipap. Will follow
[2020-09-23] MEDS: Furosemide 40 MG/4 ML Vial IV (16:59)
[2020-09-24] VITALS (35 sets, daily range): BP systolic 106–146; BP diastolic 77–111; PULSE 56–136; RESP 12–49; TEMP 36.3–37.1; O2SAT 86–97
[2020-09-24] MEDS: LORazepam 2 MG/ML Syringe 0.5 MG IV (01:35)
[2020-09-24] MEDS: Dexmedetomidine 1,000 mcg in 0.9% NS 240 mL 15.6 MCG CONT INF (02:20)
[2020-09-24 04:22] LABS: Absolute Lymphocyte Count 0.33 X10^3/uL (0.83-4.51); Absolute Neutrophil Count 17.9 X10^3/uL (2.0-7.7); Basophil# 0.03 X10^3/uL; Basophil% 0.2 % (0-1); Hematocrit 40.5 % (40-54); Hemoglobin 13.1 g/dL (13.0-16.5); Lymphocyte # 0.33 X10^3/ul (4.0); Lymphocyte % 1.7 % (19-41); Mean Corp Hgb Conc 32.3 g/dL (32-36); Mean Corpuscular Hgb 29.1 pg (27.0-32.0); Mean Platelet Vol. 11.2 fl (6.2-12.0); Monocyte# 0.52 X10^3/uL; Monocyte% 2.7 % (0-10); NRBC Flagged by Analyzer 0 % (0-5); Neutrophil # 17.92 X10^3/uL (2.7-7.7); Neutrophil % 94.1 % (47-70); POSITIVE DIFFERENTIAL YES; Platelet Count 142 K/mm3 (150-450); RBC Distribution Width CV 14.6 % (11.6-14.6); RBC Distribution Width SD 47.1 fl (35.1-43.9)
[2020-09-24 04:23] LABS: Differential Indicated SCAN CRITERIA MET
[2020-09-24 04:37] LABS: ALB/GLOB Ratio 0.4 RATIO (0.9-2.4); AST(SGOT) 13 U/L (15-37); Alanine Aminotransfer ALT/SGPT 19 U/L (16-61); Alkaline Phosphatase 96 U/L (45-117); Anion Gap 4 (5-15); BUN 50 mg/dL (7-18); BUN/Creat Ratio 56.8 RATIO (10-20); Calcium,Total 9.5 mg/dL (8.5-10.1); Chloride 104 mmol/L (98-107); Creatinine, Serum 0.88 mg/dL (0.70-1.30); EST Glomerular Filtration Rate 93 mL/min (>60); Est Glom Filt Rate - Afr Amer 113 mL/min (>60); Estimated Creatinine Clearance 104.02 ml/min; Globulin 5.3 g/dL (2.2-4.2); Glucose 170 mg/dL (74-106); Protein, Total 7.3 g/dL (6.4-8.2); Sodium Level 138 mmol/L (136-145)
[2020-09-24 04:52] LABS: Differential Comment SCANNED
--- NOTE | 2020-09-24 07:02 | PN_ITS ---
Patient Problems: Active and Suspected Problems Hypoxia (Acute) Pneumonia due to COVID-19 virus (Acute) Acute respiratory failure with hypoxia (Acute) Reason for Visit: Follow-up on Acute hypoxic respiratory failure/COVID-19 pneumonia Subjective: Patient was seen and examined. Overnight, patient required more oxygen. Remains on Bipap, now 93%. Appears a bit less anxious. Objective: Physical exam: General: Alert, Oriented x3, Cooperative, Bipap HEENT: Atraumatic, PERRLA, EOMI, Normocephalic Oral: Moist Mucosa Neck: Supple Lungs: Diminished Cardiovascular: Regular rate, Regular Rhythm, Normal S1, Normal S2 Abdomen: Bowel Sounds Present, Soft, Non Tender, Non-Distended, No Hepato- splenomegaly Extremities: No edema Skin: No rashes Musculoskeletal: No Tenderness to Palpation of Joints or Extremities Lymphatic: No Cervical, Supraclavicular, or Inguinal Adenopathy Neurological: Cranial nerves II-XII grossly intact, Neuro grossly intact Psych/Mental Status: Normal Affect, Appropriate Vitals/I&O's: Vital Signs Temp Pulse Resp BP Pulse Ox 98.1 F 56 L 19 H 116/94 H 96 09/24/20 04:00 09/24/20 06:00 09/24/20 06:00 09/24/20 06:00 09/24/20 06:00 Oxygen Flow Rate (L/min) 96 Oxygen Delivery Method Bi-pap Weight: 103.8 kg Body Mass Index (BMI) 29.4 Intake and Output for Last 24 Hours 09/22/20 09/23/20 09/24/20 23:59 23:59 23:59 Intake Total 1632.97 / 1645.87 1152.40 / 1168.00 198.95 / 198.95 Output Total 2150 / 2150 2700 / 2800 280 / 280 Balance -517.03 / -504.13 -1547.60 / -1632.00 -81.05 / -81.05 Laboratory Results 09/23/20 12:00: Sodium 139, Potassium 4.9, Chloride 105, Carbon Dioxide 27.0, Anion Gap 7, BUN 58 H, Creatinine 0.94, Estim Creat Clear Calc 97.38, Est GFR (MDRD) Af Amer 104, Est GFR (MDRD) Non-Af 86, BUN/Creatinine Ratio 61.6 H, Glucose 190 H, Calcium 9.6 09/24/20 04:00: WBC 19.0 H, RBC 4.50 L, Hgb 13.1, Hct 40.5, MCV 90.0, MCH 29.1, MCHC 32.3, RDW Std Deviation 47.1 H, RDW Coeff of Kerline 14.6, Plt Count 142 L, MPV 11.2, Immature Gran % (Auto) 1.300 H, Neut % (Auto) 94.1 H, Lymph % (Auto) 1.7 L , [place] % (Auto) 2.7, Eos % (Auto) 0.0, Baso % (Auto) 0.2, Absolute Neuts (auto) 17.9 H, Absolute Lymphs (auto) 0.33 L, Nucleated RBC % 0, Differential Comment SCANNED 09/24/20 04:00: Sodium 138, Potassium 5.0, Chloride 104, Carbon Dioxide 30.0, Anion Gap 4 L, BUN 50 H, Creatinine 0.88, Estim Creat Clear Calc 104.02, Est GFR (MDRD) Af Amer 113, Est GFR (MDRD) Non-Af 93, BUN/Creatinine Ratio 56.8 H, Glucose 170 H, Calcium 9.5, Total Bilirubin 0.50, AST 13 L, ALT 19, Alkaline Phosphatase 96, Total Protein 7.3, Albumin 2.0 L, Globulin 5.3 H, Albumin/Globulin Ratio 0.4 L Current Medications Acetaminophen (Acetaminophen 325 Mg Tablet) 650 mg PO Q6H PRN PRN PRN Reason: Pain Score 1-10/Temp > 100.7 F Last Admin: 09/22/20 08:14 Dose: 650 mg Documented by: Albuterol Sulfate (Albuterol Sulfate 8 Gm Inhaler (60 Puffs)) 2 puff INHALATION Q4H PRN PRN PRN Reason: Shortness of breath, wheezing Last Admin: 09/15/20 23:53 Dose: 2 puff Documented by: Enoxaparin Sodium (Enoxaparin 40 Mg/0.4 Ml Syringe) 40 mg SC DAILY [facility] Last Admin: 09/23/20 08:49 Dose: 40 mg Documented by: Dexmedetomidine HCl 1,000 mcg/ (Sodium Chloride) 250 mls @ 12.975 mls/hr CONT INF .[id number] [facility]; Protocol Last Titration: 09/24/20 06:00 Dose: 0.6 mcg/kg/hr, 15.6 mls/hr Documented by: Lorazepam (Lorazepam 2 Mg/Ml Syringe) 0.5 mg IV TID@0200,1000,1800 DIONNE Last Admin: 09/24/20 01:35 Dose: 0.5 mg Documented by: Morphine Sulfate (Morphine 2 Mg/Ml Syringe) 1 mg IV Q4H PRN PRN PRN Reason: Pain Score 6-10 Last Admin: 09/23/20 09:28 Dose: 1 mg Documented by: Ondansetron HCl (Ondansetron 4 Mg/2 Ml Vial) 4 mg IV Q8H PRN PRN PRN Reason: NAUSEA/VOMITING Polyethylene Glycol (Polyethylene Glycol 3350 17 Gm Packet) 17 gm PO DAILY PRN PRN PRN Reason: Constipation Senna/Docusate Sodium (Senna/Docusate Sodium 1 Tablet) 2 tablet PO BID PRN PRN PRN Reason: Constipation Last Admin: 09/23/20 13:54 Dose: 2 tablet Documented by: Sodium Chloride (0.9% Saline Lock 10 Ml Syringe) 10 - 40 ml IV UD PRN PRN Reason: SALINE FLUSH Last Admin: 09/20/20 10:11 Dose: 10 ml Documented by: Zolpidem Tartrate (Zolpidem Tartrate 5 Mg Tablet) 5 mg PO QHS PRN PRN PRN Reason: INSOMNIA STROKE Vital Signs/Narrative: Vital Signs Temp Pulse Resp BP Pulse Ox 09/24/20 06:00 56 L 19 H 116/94 H 96 09/24/20 05:00 58 L 19 H 121/90 H 94 09/24/20 04:00 98.1 F 60 17 123/95 H 93 09/24/20 03:38 57 L 09/24/20 03:31 83 20 H 94 Medical Necessity - Tobacco Use Smoking Status: Former smoker Tobacco Use: Cigarettes Assessment/Plan All Active Problems Hypoxia (Acute) Pneumonia due to COVID-19 virus (Acute) Acute respiratory failure with hypoxia (Acute) 1. Acute hypoxic respiratory failure secondary to acute COVID-19 pneumonia, remains unchanged from yesterday. Currently on Airvo/Bipap, continue with breathing treatments, PO steroids, encourage use of incentive spirometer. Wean off oxygen for SPO2 more than 94% 2. Anxiety disorder, persistent, on Precedex Continue on Ativan 1 mg TID, wean off Precedex 2. Severe sepsis secondary to acute COVID-19 pneumonia, very minimally improved Admitting lactic acid of 2.6. Completed dexamethasone, convalescent plasma and remdesivir on 09/16/20 ID and pulmonology following 3. Hypertension, now relatively hypotensive secondary to use of Precedex Map remains above 65, off lisinopril, will continue to monitor 4. Multiple myeloma, follow-up with outpatient plan 5. DVT prophylaxis with Lovenox subcu Inpatient E&M: [id number] Subs Hosp L3
--- NOTE | 2020-09-24 07:17 | PN_ITS ---
Subjective: Patient did okay overnight. Patient continues to be on Precedex to tolerate BiPAP therapy and Airvo during the day. Patient is taking more by mouth. General: Alert, Cooperative, No apparent distress, - - Mild conversational dyspnea on BiPAP HEENT: Atraumatic, PERRLA, EOMI, Normocephalic, - - No scleral icterus or injection noted Oral: No Gingival or Mucosal Lesions/ Ulcerations, Dry Mucosa Neck: Supple, No JVD, No Nodes, Trachea Midline Lungs: No rhonchi, No wheeze, No rales, Diminished Cardiovascular: Regular rate, Regular Rhythm, Normal S1, Normal S2, No murmurs, No rub noted, No Gallop Abdomen: Bowel Sounds Present, Soft, Non Tender, Non-Distended Extremities: No clubbing, No cyanosis, No edema Skin: No rashes, No breakdown Musculoskeletal: No Tenderness to Palpation of Joints or Extremities Lymphatic: No Cervical, Supraclavicular, or Inguinal Adenopathy Neurological: Cranial nerves II-XII grossly intact, Neuro grossly intact, Motor Exam 5/5 strength throughout Psych/Mental Status: Appropriate, Flat Affect Vital Signs Temp Pulse Resp BP Pulse Ox 36.7 C 57 L 26 H 146/102 H 93 09/24/20 04:00 09/24/20 07:00 09/24/20 07:00 09/24/20 07:00 09/24/20 07:00 Oxygen Flow Rate (L/min) 96 Oxygen Delivery Method Bi-pap Weight: 103.8 kg Body Mass Index (BMI) 29.4 Intake and Output for Last 24 Hours 09/22/20 09/23/20 09/24/20 23:59 23:59 23:59 Intake Total 1632.97 / 1645.87 1152.40 / 1168.00 214.55 / 214.55 Output Total 2150 / 2150 2700 / 2800 280 / 280 Balance -517.03 / -504.13 -1547.60 / -1632.00 -65.45 / -65.45 Labs (Last 48 Hours) 09/23/20 09/23/20 09/23/20 05:40 05:40 12:00 WBC 19.6 H RBC 4.78 Hgb 13.5 Hct 42.6 MCV 89.1 MCH 28.2 MCHC 31.7 L RDW Std Deviation 48.1 H RDW Coeff of Kerline 14.6 Plt Count 155 MPV 10.1 Immature Gran % (Auto) 1.000 H Neut % (Auto) 94.2 H Lymph % (Auto) 1.7 L [place] % (Auto) 2.9 Eos % (Auto) 0.0 Baso % (Auto) 0.2 Absolute Neuts (auto) 18.5 H Absolute Lymphs (auto) 0.34 L Nucleated RBC % 0 Differential Comment SCANNED Sodium Cancelled 139 Potassium Cancelled 4.9 Chloride Cancelled 105 Carbon Dioxide Cancelled 27.0 Anion Gap Cancelled 7 BUN Cancelled 58 H Creatinine Cancelled 0.94 Estim Creat Clear Calc Cancelled 97.38 Est GFR (MDRD) Af Amer Cancelled 104 Est GFR (MDRD) Non-Af Cancelled 86 BUN/Creatinine Ratio Cancelled 61.6 H Glucose Cancelled 190 H Calcium Cancelled 9.6 Total Bilirubin AST ALT Alkaline Phosphatase Total Protein Albumin Globulin Albumin/Globulin Ratio 09/24/20 09/24/20 04:00 04:00 WBC 19.0 H RBC 4.50 L Hgb 13.1 Hct 40.5 MCV 90.0 MCH 29.1 MCHC 32.3 RDW Std Deviation 47.1 H RDW Coeff of Kerline 14.6 Plt Count 142 L MPV 11.2 Immature Gran % (Auto) 1.300 H Neut % (Auto) 94.1 H Lymph % (Auto) 1.7 L [place] % (Auto) 2.7 Eos % (Auto) 0.0 Baso % (Auto) 0.2 Absolute Neuts (auto) 17.9 H Absolute Lymphs (auto) 0.33 L Nucleated RBC % 0 Differential Comment SCANNED Sodium 138 Potassium 5.0 Chloride 104 Carbon Dioxide 30.0 Anion Gap 4 L BUN 50 H Creatinine 0.88 Estim Creat Clear Calc 104.02 Est GFR (MDRD) Af Amer 113 Est GFR (MDRD) Non-Af 93 BUN/Creatinine Ratio 56.8 H Glucose 170 H Calcium 9.5 Total Bilirubin 0.50 AST 13 L ALT 19 Alkaline Phosphatase 96 Total Protein 7.3 Albumin 2.0 L Globulin 5.3 H Albumin/Globulin Ratio 0.4 L Clinical Impression(s) from Imaging Studies Chest X-Ray 09/23/20 12:55 IMPRESSION: Progressive bilateral pulmonary infiltrates as compared to prior study. Electronically Signed: Washington Vent[place], at 15:25 EST , Service support , Medical Necessity - Tobacco Use Smoking Status: Former smoker Tobacco Use: Cigarettes Assessment/Plan All Active Problems Hypoxia (Acute) Pneumonia due to COVID-19 virus (Acute) Acute respiratory failure with hypoxia (Acute) RECOMMENDATIONS: 1. Continue BiPAP therapy for sleep/rescue and wean FiO2 to maintain oxygen saturations at or above 90%. 2. Okay to hold Precedex therapy while on Airvo to see if p.o. intake could be accomplished. 3. Continue Decadron 6 mg daily to complete 10 days. 4. Continue Lovenox for prophylaxis. 5. Continue aggressive diuresis as tolerated IMPRESSIONS: 1. Acute hypoxemic respiratory failure secondary to COVID-19 pneumonia The patient presented to the hospital with approximately 1 week of Covid- like symptoms. He is currently maintaining appropriate oxygen saturations on BIPAP. Given his duration of symptoms and underlying multiple myeloma, the patient received convalescent plasma and completed a treatment course of remdesivir. He remains on Decadron daily to complete 10 days. Continue to wean FiO2 to maintain saturations at or above 90%. Patient's chest x-ray shows slightly increased infiltrates. Renal function should allow further diuresis. This has been ordered. Will attempt to decrease Precedex, especially while on Airvo, to see if improve nutrition can be accomplished. Would not be surprised if patient requires BiPAP therapy for rescue, especially with sleep 2. History of multiple myeloma on treatment/hypertension Complicates care, management, recovery and prognosis. Continue home medications as indicated. TIME: 31 minutes of critical care time, independent of procedures, was spent addressing the patient's acute hypoxemic respiratory failure, COVID-19 pneumonia, anxiety, review of all data and collaboration with the care team. (5:45 AM to 6:45 AM) [id number]: [id number] Critical care first hour
[2020-09-24] MEDS: Enoxaparin 40 MG/0.4 ML Syringe SC (08:37)
[2020-09-24] MEDS: Furosemide 40 MG/4 ML Vial IV (08:37)
[2020-09-24] MEDS: LORazepam 1 MG Tablet PO ×2 (08:38→14:31)
[2020-09-24] MEDS: Polyethylene Glycol 3350 17 GM PACKET PO (13:00)
[2020-09-24] MEDS: 0.9% Saline Lock 10 ML Syringe IV (13:02)
[2020-09-24] MEDS: Dexmedetomidine 1,000 mcg in 0.9% NS 240 mL 18.2 MCG CONT INF (20:19)
[2020-09-25] VITALS (35 sets, daily range): BP systolic 101–128; BP diastolic 62–97; PULSE 76–119; RESP 12–87; TEMP 36.3–36.8; O2SAT 87–94
[2020-09-25 04:42] LABS: Absolute Lymphocyte Count 0.45 X10^3/uL (0.83-4.51); Basophil# 0.02 X10^3/uL; Basophil% 0.1 % (0-1); Eosinophil# 0.02 X10^3/uL; Eosinophils% 0.1 % (0-5); Hematocrit 43.5 % (40-54); Hemoglobin 13.9 g/dL (13.0-16.5); Lymphocyte # 0.45 X10^3/ul (4.0); Lymphocyte % 2.2 % (19-41); Mean Corpuscular Hgb 28.4 pg (27.0-32.0); Mean Platelet Vol. 11.1 fl (6.2-12.0); Monocyte# 0.48 X10^3/uL; Monocyte% 2.4 % (0-10); NRBC Flagged by Analyzer 0 % (0-5); Neutrophil # 19.03 X10^3/uL (2.7-7.7); POSITIVE DIFFERENTIAL YES; Platelet Count 143 K/mm3 (150-450); RBC Distribution Width CV 14.6 % (11.6-14.6); Red Blood Count 4.89 M/mm3 (4.6-6.2); White Blood Count 20.2 K/mm3 (4.4-11.0)
[2020-09-25 04:46] LABS: Differential Indicated SCAN CRITERIA MET
[2020-09-25 05:00] LABS: ALB/GLOB Ratio 0.4 RATIO (0.9-2.4); AST(SGOT) 21 U/L (15-37); Alanine Aminotransfer ALT/SGPT 33 U/L (16-61); Albumin, Serum 2.1 g/dL (3.2-5.0); Alkaline Phosphatase 112 U/L (45-117); Anion Gap 7 (5-15); BUN 47 mg/dL (7-18); BUN/Creat Ratio 51.4 RATIO (10-20); Calcium,Total 10.1 mg/dL (8.5-10.1); Chloride 100 mmol/L (98-107); Creatinine, Serum 0.91 mg/dL (0.70-1.30); EST Glomerular Filtration Rate 89 mL/min (>60); Est Glom Filt Rate - Afr Amer 108 mL/min (>60); Globulin 5.4 g/dL (2.2-4.2); Glucose 171 mg/dL (74-106); Potassium 4.8 mmol/L (3.5-5.1); Protein, Total 7.5 g/dL (6.4-8.2); Sodium Level 137 mmol/L (136-145)
[2020-09-25 05:01] LABS: Differential Comment SCANNED
--- NOTE | 2020-09-25 06:59 | PN_ITS ---
Subjective: Patient did okay overnight. Patient continues to require Precedex to tolerate BiPAP therapy, but has remained hemodynamically stable. Still requiring high FiO2 to maintain saturations. General: No apparent distress - On BiPAP therapy, - - Sedated. RASS -1. Opens eyes readily to voice HEENT: Atraumatic, PERRLA, EOMI, Normocephalic, - - No scleral icterus or injection noted Oral: No Gingival or Mucosal Lesions/ Ulcerations, Dry Mucosa Neck: Supple, No JVD, No Nodes, Trachea Midline Lungs: No rhonchi, No wheeze, No rales, Diminished, - - Symmetric expansion Cardiovascular: Regular rate, Regular Rhythm, Normal S1, Normal S2, No murmurs, No rub noted, No Gallop Abdomen: Bowel Sounds Present, Soft, Non Tender, Non-Distended Extremities: No clubbing, No cyanosis, No edema, Capillary Refill Less than 3 Seconds Skin: No rashes, No breakdown Musculoskeletal: No Tenderness to Palpation of Joints or Extremities Lymphatic: No Cervical, Supraclavicular, or Inguinal Adenopathy Neurological: Cranial nerves II-XII grossly intact, Neuro grossly intact, Motor Exam 5/5 strength throughout Psych/Mental Status: Appropriate, Flat Affect Vital Signs Temp Pulse Resp BP Pulse Ox 36.6 C 77 21 H 108/82 H 92 09/25/20 04:00 09/25/20 06:00 09/25/20 06:00 09/25/20 06:00 09/25/20 06:00 Oxygen Flow Rate (L/min) 60 Oxygen Delivery Method Bi-pap Weight: 102.9 kg Body Mass Index (BMI) 29.4 Intake and Output for Last 24 Hours 09/23/20 09/24/20 09/25/20 23:59 23:59 23:59 Intake Total 1152.40 / 1168.00 2040.59 / 2040.59 230.72 / 230.72 Output Total 2700 / 2800 1885 / 1885 475 / 475 Balance -1547.60 / -1632.00 155.59 / 155.59 -244.28 / -244.28 Labs (Last 48 Hours) 09/23/20 09/24/20 09/24/20 12:00 04:00 04:00 WBC 19.0 H RBC 4.50 L Hgb 13.1 Hct 40.5 MCV 90.0 MCH 29.1 MCHC 32.3 RDW Std Deviation 47.1 H RDW Coeff of Kerline 14.6 Plt Count 142 L MPV 11.2 Immature Gran % (Auto) 1.300 H Neut % (Auto) 94.1 H Lymph % (Auto) 1.7 L [place] % (Auto) 2.7 Eos % (Auto) 0.0 Baso % (Auto) 0.2 Absolute Neuts (auto) 17.9 H Absolute Lymphs (auto) 0.33 L Nucleated RBC % 0 Differential Comment SCANNED Sodium 139 138 Potassium 4.9 5.0 Chloride 105 104 Carbon Dioxide 27.0 30.0 Anion Gap 7 4 L BUN 58 H 50 H Creatinine 0.94 0.88 Estim Creat Clear Calc 97.38 104.02 Est GFR (MDRD) Af Amer 104 113 Est GFR (MDRD) Non-Af 86 93 BUN/Creatinine Ratio 61.6 H 56.8 H Glucose 190 H 170 H Calcium 9.6 9.5 Total Bilirubin 0.50 AST 13 L ALT 19 Alkaline Phosphatase 96 Total Protein 7.3 Albumin 2.0 L Globulin 5.3 H Albumin/Globulin Ratio 0.4 L 09/25/20 09/25/20 04:25 04:25 WBC 20.2 H RBC 4.89 Hgb 13.9 Hct 43.5 MCV 89.0 MCH 28.4 MCHC 32.0 RDW Std Deviation 47.0 H RDW Coeff of Kerline 14.6 Plt Count 143 L MPV 11.1 Immature Gran % (Auto) 1.200 H Neut % (Auto) 94.0 H Lymph % (Auto) 2.2 L [place] % (Auto) 2.4 Eos % (Auto) 0.1 Baso % (Auto) 0.1 Absolute Neuts (auto) 19.0 H Absolute Lymphs (auto) 0.45 L Nucleated RBC % 0 Differential Comment SCANNED Sodium 137 Potassium 4.8 Chloride 100 Carbon Dioxide 30.0 Anion Gap 7 BUN 47 H Creatinine 0.91 Estim Creat Clear Calc 100.60 Est GFR (MDRD) Af Amer 108 Est GFR (MDRD) Non-Af 89 BUN/Creatinine Ratio 51.4 H Glucose 171 H Calcium 10.1 Total Bilirubin 0.70 AST 21 ALT 33 Alkaline Phosphatase 112 Total Protein 7.5 Albumin 2.1 L Globulin 5.4 H Albumin/Globulin Ratio 0.4 L Medical Necessity - Tobacco Use Smoking Status: Former smoker Tobacco Use: Cigarettes Assessment/Plan All Active Problems Hypoxia (Acute) Pneumonia due to COVID-19 virus (Acute) Acute respiratory failure with hypoxia (Acute) RECOMMENDATIONS: 1. Continue BiPAP therapy for sleep/rescue and wean FiO2 to maintain oxygen saturations at or above 90%. 2. Okay to hold Precedex therapy while on Airvo to see if p.o. intake could be accomplished. 3. Completed Decadron 4. Continue Lovenox for prophylaxis. 5. Continue aggressive diuresis as tolerated with BMPs daily to monitor for complications IMPRESSIONS: 1. Acute hypoxemic respiratory failure secondary to COVID-19 pneumonia The patient presented to the hospital with approximately 1 week of Covid- like symptoms. He is currently maintaining appropriate oxygen saturations on BIPAP. Given his duration of symptoms and underlying multiple myeloma, the patient received convalescent plasma and completed a treatment course of remdesivir and Decadron. Continue to wean FiO2 to maintain saturations at or above 90%. Patient's previous chest x-ray shows slightly increased infiltrates. Renal function should allow further diuresis. This has been ordered. Will attempt to decrease Precedex, especially while on Airvo, to see if improve nutrition can be accomplished. Patient would benefit from pulmonary recruiting measures during the day. Would not be surprised if patient requires BiPAP therapy for rescue, especially with sleep 2. History of multiple myeloma on treatment/hypertension Complicates care, management, recovery and prognosis. Continue home medications as indicated. Inpatient E&M: [id number] [facility] L[facility]
--- NOTE | 2020-09-25 07:19 | PN_ITS ---
Patient Problems: Active and Suspected Problems Hypoxia (Acute) Pneumonia due to COVID-19 virus (Acute) Acute respiratory failure with hypoxia (Acute) Reason for Visit: Follow-up on Acute hypoxic respiratory failure/COVID-19 pneumonia Subjective: Patient was seen and examined. Overnight, patient required more oxygen. Remains on Bipap/interfacing with Airvo. Objective: Physical exam: General: Alert, Oriented x3, Cooperative, on Airvo HEENT: Atraumatic, PERRLA, EOMI, Normocephalic Oral: Moist Mucosa Neck: Supple Lungs: Diminished Cardiovascular: Regular rate, Regular Rhythm, Normal S1, Normal S2 Abdomen: Bowel Sounds Present, Soft, Non Tender, Non-Distended, No Hepato- splenomegaly Extremities: No edema Skin: No rashes Musculoskeletal: No Tenderness to Palpation of Joints or Extremities Lymphatic: No Cervical, Supraclavicular, or Inguinal Adenopathy Neurological: Cranial nerves II-XII grossly intact, Neuro grossly intact Psych/Mental Status: Normal Affect, Appropriate Vitals/I&O's: Vital Signs Temp Pulse Resp BP Pulse Ox 97.8 F 83 25 H 108/89 H 94 09/25/20 04:00 09/25/20 07:08 09/25/20 07:08 09/25/20 07:00 09/25/20 07:08 Oxygen Flow Rate (L/min) 60 Oxygen Delivery Method Bi-pap Weight: 102.9 kg Body Mass Index (BMI) 29.4 Intake and Output for Last 24 Hours 09/23/20 09/24/20 09/25/20 23:59 23:59 23:59 Intake Total 1152.40 / 1168.00 2040.59 / 2040.59 247.40 / 247.40 Output Total 2700 / 2800 1885 / 1885 475 / 475 Balance -1547.60 / -1632.00 155.59 / 155.59 -227.60 / -227.60 Laboratory Results 09/25/20 04:25: WBC 20.2 H, RBC 4.89, Hgb 13.9, Hct 43.5, MCV 89.0, MCH 28.4, MCHC 32.0, RDW Std Deviation 47.0 H, RDW Coeff of Kerline 14.6, Plt Count 143 L, MPV 11.1, Immature Gran % (Auto) 1.200 H, Neut % (Auto) 94.0 H, Lymph % (Auto) 2.2 L , [place] % (Auto) 2.4, Eos % (Auto) 0.1, Baso % (Auto) 0.1, Absolute Neuts (auto) 19.0 H, Absolute Lymphs (auto) 0.45 L, Nucleated RBC % 0, Differential Comment SCANNED 09/25/20 04:25: Sodium 137, Potassium 4.8, Chloride 100, Carbon Dioxide 30.0, Anion Gap 7, BUN 47 H, Creatinine 0.91, Estim Creat Clear Calc 100.60, Est GFR (MDRD) Af Amer 108, Est GFR (MDRD) Non-Af 89, BUN/Creatinine Ratio 51.4 H, Glucose 171 H, Calcium 10.1, Total Bilirubin 0.70, AST 21, ALT 33, Alkaline Phosphatase 112, Total Protein 7.5, Albumin 2.1 L, Globulin 5.4 H, Albumin/Globulin Ratio 0.4 L Current Medications Acetaminophen (Acetaminophen 325 Mg Tablet) 650 mg PO Q6H PRN PRN PRN Reason: Pain Score 1-10/Temp > 100.7 F Last Admin: 09/22/20 08:14 Dose: 650 mg Documented by: Albuterol Sulfate (Albuterol Sulfate 8 Gm Inhaler (60 Puffs)) 2 puff INHALATION Q4H PRN PRN PRN Reason: Shortness of breath, wheezing Last Admin: 09/15/20 23:53 Dose: 2 puff Documented by: Enoxaparin Sodium (Enoxaparin 40 Mg/0.4 Ml Syringe) 40 mg SC DAILY [facility] Last Admin: 09/24/20 08:37 Dose: 40 mg Documented by: Furosemide (Furosemide 40 Mg/4 Ml Vial) 40 mg IV BID@1000,1700 [facility] Dexmedetomidine HCl 1,000 mcg/ (Sodium Chloride) 250 mls @ 12.975 mls/hr CONT INF .[id number] [facility]; Protocol Last Titration: 09/25/20 06:00 Dose: 0.7 mcg/kg/hr, 18.2 mls/hr Documented by: Ondansetron HCl (Ondansetron 4 Mg/2 Ml Vial) 4 mg IV Q8H PRN PRN PRN Reason: NAUSEA/VOMITING Polyethylene Glycol (Polyethylene Glycol 3350 17 Gm Packet) 17 gm PO DAILY PRN PRN PRN Reason: Constipation Last Admin: 09/24/20 13:00 Dose: 17 gm Documented by: Senna/Docusate Sodium (Senna/Docusate Sodium 1 Tablet) 2 tablet PO BID PRN PRN PRN Reason: Constipation Last Admin: 09/23/20 13:54 Dose: 2 tablet Documented by: Sodium Chloride (0.9% Saline Lock 10 Ml Syringe) 10 - 40 ml IV UD PRN PRN Reason: SALINE FLUSH Last Admin: 09/24/20 13:02 Dose: 20 ml Documented by: Zolpidem Tartrate (Zolpidem Tartrate 5 Mg Tablet) 5 mg PO QHS PRN PRN PRN Reason: INSOMNIA STROKE Vital Signs/Narrative: Vital Signs Temp Pulse Resp BP Pulse Ox 09/25/20 07:08 83 25 H 94 09/25/20 07:00 76 29 H 108/89 H 94 09/25/20 06:00 77 21 H 108/82 H 92 09/25/20 05:00 77 26 H 107/86 H 93 09/25/20 04:35 80 30 H 93 09/25/20 04:00 97.8 F 85 29 H 115/97 H 91 Medical Necessity - Tobacco Use Smoking Status: Former smoker Tobacco Use: Cigarettes Assessment/Plan All Active Problems Hypoxia (Acute) Pneumonia due to COVID-19 virus (Acute) Acute respiratory failure with hypoxia (Acute) 1. Acute hypoxic respiratory failure secondary to acute COVID-19 pneumonia, remains unchanged from yesterday. Currently on Airvo/Bipap, continue with breathing treatments, encourage use of incentive spirometer. Wean off oxygen for SPO2 more than 94% 2. Anxiety disorder, persistent, on Precedex, wean off Precedex 2. Severe sepsis secondary to acute COVID-19 pneumonia, very minimally improved Admitting lactic acid of 2.6. Completed dexamethasone, convalescent plasma and remdesivir on 09/16/20 ID and pulmonology following 3. Hypertension, now relatively hypotensive secondary to use of Precedex Map remains above 65, off lisinopril, will continue to monitor 4. Multiple myeloma, follow-up with outpatient plan 5. DVT prophylaxis with Lovenox subcu Inpatient E&M: [id number] Subs Hosp L2
[2020-09-25] MEDS: Enoxaparin 40 MG/0.4 ML Syringe SC (08:16)
[2020-09-25] MEDS: Furosemide 40 MG/4 ML Vial IV ×2 (08:17→16:58)
[2020-09-25] MEDS: Dexmedetomidine 1,000 mcg in 0.9% NS 240 mL 18.2 MCG CONT INF ×2 (10:08→22:46)
--- NOTE | 2020-09-25 11:41 | CASEMGMT ---
Social Work Phone call received from [facility]. Hospice referral was made on 09/19 and Suzanna from Hospice inquiring about this. SW reviewed pt records which indicate pt respiratory status declined on 09/19 and after discussion with physician pt requesting no Bipap/intubation and hospice. On 09/20 pt spoke with and vp medical and was then agreeable to wear bipap. Since discussion with family pt has been agreeable to treatment and no longer requesting hospice services. Pt respiratory improving. Hospice referral cancelled at this time, but Hospice does remain available should pt change his mind. ALYSON Wilkins
[2020-09-25] MEDS: Senna/Docusate Sodium 1 Tablet 2 TABLET PO (12:32)
[2020-09-25] MEDS: Polyethylene Glycol 3350 17 GM PACKET PO (12:32)
--- NOTE | 2020-09-25 15:16 | CASEMGMT ---
Social Work Sw spoke with pt Malena and offered support. Malena also had Covid and is feeling much better now and out of quarantine. Malena stating she talks to her children often and they are supportive. Pt also states she has been able to talk to pt on the phone yesterday and today and she is appreciative of this. Emotional support provided. SW will remain available for continued support and assistance. ALYSON Wilkins
[2020-09-25] MEDS: 0.9% Saline Lock 10 ML Syringe IV (16:59)
[2020-09-25] MEDS: Acetaminophen 325 MG Tablet 650 MG PO (20:43)
[2020-09-26] VITALS (32 sets, daily range): BP systolic 92–131; BP diastolic 66–94; PULSE 75–122; RESP 21–38; TEMP 36.4–36.8; O2SAT 88–94
[2020-09-26 03:31] LABS: Absolute Lymphocyte Count 0.46 X10^3/uL (0.83-4.51); Absolute Neutrophil Count 19.2 X10^3/uL (2.0-7.7); Basophil# 0.03 X10^3/uL; Basophil% 0.1 % (0-1); Eosinophil# 0.04 X10^3/uL; Eosinophils% 0.2 % (0-5); Hematocrit 42.1 % (40-54); Hemoglobin 13.3 g/dL (13.0-16.5); Lymphocyte # 0.46 X10^3/ul (4.0); Lymphocyte % 2.3 % (19-41); Mean Corp Hgb Conc 31.6 g/dL (32-36); Mean Corpuscular Hgb 28.2 pg (27.0-32.0); Mean Corpuscular Volume 89.4 fL (80-94); Mean Platelet Vol. 11.2 fl (6.2-12.0); Monocyte# 0.45 X10^3/uL; Monocyte% 2.2 % (0-10); NRBC Flagged by Analyzer 0 % (0-5); Neutrophil # 19.24 X10^3/uL (2.7-7.7); Neutrophil % 94.2 % (47-70); POSITIVE DIFFERENTIAL YES; Platelet Count 148 K/mm3 (150-450); RBC Distribution Width CV 14.5 % (11.6-14.6); RBC Distribution Width SD 46.8 fl (35.1-43.9); Red Blood Count 4.71 M/mm3 (4.6-6.2); White Blood Count 20.4 K/mm3 (4.4-11.0)
[2020-09-26 03:36] LABS: Differential Indicated SCAN CRITERIA MET
[2020-09-26 03:49] LABS: Differential Comment SCANNED
[2020-09-26 03:52] LABS: ALB/GLOB Ratio 0.3 RATIO (0.9-2.4); AST(SGOT) 19 U/L (15-37); Alanine Aminotransfer ALT/SGPT 30 U/L (16-61); Albumin, Serum 1.8 g/dL (3.2-5.0); Alkaline Phosphatase 110 U/L (45-117); Anion Gap 7 (5-15); BUN 55 mg/dL (7-18); BUN/Creat Ratio 55.6 RATIO (10-20); Calcium,Total 9.6 mg/dL (8.5-10.1); Chloride 101 mmol/L (98-107); Creatinine, Serum 0.99 mg/dL (0.70-1.30); EST Glomerular Filtration Rate 82 mL/min (>60); Est Glom Filt Rate - Afr Amer 99 mL/min (>60); Estimated Creatinine Clearance 92.47 ml/min; Globulin 5.2 g/dL (2.2-4.2); Glucose 166 mg/dL (74-106); Potassium 4.5 mmol/L (3.5-5.1); Sodium Level 137 mmol/L (136-145)
--- NOTE | 2020-09-26 06:58 | PCM.PN.HOSP ---
Patient Problems: Active and Suspected Problems Hypoxia (Acute) Pneumonia due to COVID-19 virus (Acute) Acute respiratory failure with hypoxia (Acute) Reason for Visit: Follow-up on Acute hypoxic respiratory failure/COVID-19 pneumonia Subjective: Patient was seen and examined. No change from previous. Patient seems to be doing Airvo more. Appears less anxious. Objective: Physical exam: General: Alert, Oriented x3, Cooperative, on Airvo HEENT: Atraumatic, PERRLA, EOMI, Normocephalic Oral: Moist Mucosa Neck: Supple Lungs: Diminished Cardiovascular: Regular rate, Regular Rhythm, Normal S1, Normal S2 Abdomen: Bowel Sounds Present, Soft, Non Tender, Non-Distended, No Hepato-splenomegaly Extremities: No edema Skin: No rashes Musculoskeletal: No Tenderness to Palpation of Joints or Extremities Lymphatic: No Cervical, Supraclavicular, or Inguinal Adenopathy Neurological: Cranial nerves II-XII grossly intact, Neuro grossly intact Psych/Mental Status: Normal Affect, Appropriate Vitals/I&O's: Vital Signs Temp Pulse Resp BP Pulse Ox 97.6 F L 80 24 H 117/82 H 89 09/26/20 04:00 09/26/20 06:00 09/26/20 06:00 09/26/20 06:00 09/26/20 06:00 Oxygen Flow Rate (L/min) 60 Oxygen Delivery Method Airvo Weight: 102.9 kg Body Mass Index (BMI) 29.4 Intake and Output for Last 24 Hours 09/24/20 09/25/20 09/26/20 23:59 23:59 23:59 Intake Total 2040.59 / 2040.59 1815.33 / 1833.53 36.4 / 36.4 Output Total 1885 / 1885 2600 / 2650 275 / 275 Balance 155.59 / 155.59 -784.67 / -816.47 -238.6 / -238.6 Laboratory Results 09/26/20 03:15: WBC 20.4 H, RBC 4.71, Hgb 13.3, Hct 42.1, MCV 89.4, MCH 28.2, MCHC 31.6 L, RDW Std Deviation 46.8 H, RDW Coeff of Kerline 14.5, Plt Count 148 L, MPV 11.2, Immature Gran % (Auto) 1.000 H, Neut % (Auto) 94.2 H, Lymph % (Auto) 2.3 L, [place] % (Auto) 2.2, Eos % (Auto) 0.2, Baso % (Auto) 0.1, Absolute Neuts (auto) 19.2 H, Absolute Lymphs (auto) 0.46 L, Nucleated RBC % 0, Differential Comment SCANNED 09/26/20 03:15: Sodium 137, Potassium 4.5, Chloride 101, Carbon Dioxide 29.0, Anion Gap 7, BUN 55 H, Creatinine 0.99, Estim Creat Clear Calc 92.47, Est GFR (MDRD) Af Amer 99, Est GFR (MDRD) Non-Af 82, BUN/Creatinine Ratio 55.6 H, Glucose 166 H, Calcium 9.6, Total Bilirubin 0.60, AST 19, ALT 30, Alkaline Phosphatase 110, Total Protein 7.0, Albumin 1.8 L, Globulin 5.2 H, Albumin/Globulin Ratio 0.3 L Current Medications Acetaminophen (Acetaminophen 325 Mg Tablet) 650 mg PO Q6H PRN PRN PRN Reason: Pain Score 1-10/Temp > 100.7 F Last Admin: 09/25/20 20:43 Dose: 650 mg Documented by: Albuterol Sulfate (Albuterol Sulfate 8 Gm Inhaler (60 Puffs)) 2 puff INHALATION Q4H PRN PRN PRN Reason: Shortness of breath, wheezing Last Admin: 09/15/20 23:53 Dose: 2 puff Documented by: Enoxaparin Sodium (Enoxaparin 40 Mg/0.4 Ml Syringe) 40 mg SC DAILY [facility] Last Admin: 09/25/20 08:16 Dose: 40 mg Documented by: Furosemide (Furosemide 40 Mg/4 Ml Vial) 40 mg IV BID@1000,1700 [facility] Last Admin: 09/25/20 16:58 Dose: 40 mg Documented by: Dexmedetomidine HCl 1,000 mcg/ (Sodium Chloride) 250 mls @ 12.975 mls/hr CONT INF .[id number] [facility]; Protocol Last Titration: 09/26/20 01:00 Dose: 0.7 mcg/kg/hr, 18.2 mls/hr Documented by: Ondansetron HCl (Ondansetron 4 Mg/2 Ml Vial) 4 mg IV Q8H PRN PRN PRN Reason: NAUSEA/VOMITING Polyethylene Glycol (Polyethylene Glycol 3350 17 Gm Packet) 17 gm PO DAILY PRN PRN PRN Reason: Constipation Last Admin: 09/25/20 12:32 Dose: 17 gm Documented by: Senna/Docusate Sodium (Senna/Docusate Sodium 1 Tablet) 2 tablet PO BID PRN PRN PRN Reason: Constipation Last Admin: 09/25/20 12:32 Dose: 2 tablet Documented by: Sodium Chloride (0.9% Saline Lock 10 Ml Syringe) 10 - 40 ml IV UD PRN PRN Reason: SALINE FLUSH Last Admin: 09/25/20 16:59 Dose: 10 ml Documented by: Zolpidem Tartrate (Zolpidem Tartrate 5 Mg Tablet) 5 mg PO QHS PRN PRN PRN Reason: INSOMNIA STROKE Vital Signs/Narrative: Vital Signs Temp Pulse Resp BP Pulse Ox 09/26/20 06:00 80 24 H 117/82 H 89 09/26/20 05:00 85 24 H 114/91 H 88 09/26/20 04:00 97.6 F L 85 24 H 106/84 H 89 09/26/20 03:00 78 21 H 92/73 94 Medical Necessity - Tobacco Use Smoking Status: Former smoker Tobacco Use: Cigarettes Assessment/Plan All Active Problems Hypoxia (Acute) Pneumonia due to COVID-19 virus (Acute) Acute respiratory failure with hypoxia (Acute) 1. Acute hypoxic respiratory failure secondary to acute COVID-19 pneumonia, remains unchanged from yesterday, no improvement. Still on Airvo/Bipap, continue with breathing treatments, encourage use of incentive spirometer. Wean off oxygen for SPO2 more than 94% 2. Anxiety disorder, persistent, on Precedex, Will continue to attempt wean off Precedex 3. Severe sepsis secondary to acute COVID-19 pneumonia, very minimally improved Admitting lactic acid of 2.6. Completed dexamethasone, convalescent plasma and remdesivir on 09/16/20 ID and pulmonology following 4. Hypertension, now relatively hypotensive secondary to use of Precedex Map remains above 65, off lisinopril, will continue to monitor 5. Multiple myeloma, follow-up with outpatient plan 6. DVT prophylaxis with Lovenox subcu Inpatient E&M: [id number] Subs Hosp L2
--- NOTE | 2020-09-26 07:29 | PCM.PN.INT ---
Subjective: Patient continues to be relatively stable. Patient states that he wants to keep fighting, but has been on Precedex most of the time. Nursing is reporting poor participation in recovery. General: Alert, Cooperative, No apparent distress, - - RASS -1. HEENT: Atraumatic, PERRLA, EOMI, Normocephalic, - - Scleral injection without icterus Oral: Moist Mucosa, No Gingival or Mucosal Lesions/ Ulcerations Neck: Supple, No Nodes, Trachea Midline, JVD, Right Lungs: No rhonchi, No wheeze, No rales, Diminished, - - Poor effort Cardiovascular: Regular rate, Regular Rhythm, Normal S1, Normal S2, No murmurs, No rub noted, No Gallop Abdomen: Bowel Sounds Present, Soft, Non Tender, Non-Distended Extremities: No clubbing, No cyanosis, No edema, Capillary Refill Less than 3 Seconds Skin: No rashes, No breakdown Musculoskeletal: No Tenderness to Palpation of Joints or Extremities Lymphatic: No Cervical, Supraclavicular, or Inguinal Adenopathy Neurological: Cranial nerves II-XII grossly intact, Neuro grossly intact, Motor Exam 5/5 strength throughout Psych/Mental Status: Appropriate, Flat Affect Vital Signs Temp Pulse Resp BP Pulse Ox 36.4 C L 80 24 H 117/82 H 89 09/26/20 04:00 09/26/20 06:00 09/26/20 06:00 09/26/20 06:00 09/26/20 06:00 Oxygen Flow Rate (L/min) 60 Oxygen Delivery Method Airvo Weight: 101.6 kg Body Mass Index (BMI) 29.4 Intake and Output for Last 24 Hours 09/24/20 09/25/20 09/26/20 23:59 23:59 23:59 Intake Total 2040.59 / 2040.59 1815.33 / 1833.53 36.4 / 36.4 Output Total 1885 / 1885 2600 / 2650 275 / 275 Balance 155.59 / 155.59 -784.67 / -816.47 -238.6 / -238.6 Labs (Last 48 Hours) 09/25/20 09/25/20 09/26/20 04:25 04:25 03:15 WBC 20.2 H 20.4 H RBC 4.89 4.71 Hgb 13.9 13.3 Hct 43.5 42.1 MCV 89.0 89.4 MCH 28.4 28.2 MCHC 32.0 31.6 L RDW Std Deviation 47.0 H 46.8 H RDW Coeff of Kerline 14.6 14.5 Plt Count 143 L 148 L MPV 11.1 11.2 Immature Gran % (Auto) 1.200 H 1.000 H Neut % (Auto) 94.0 H 94.2 H Lymph % (Auto) 2.2 L 2.3 L [place] % (Auto) 2.4 2.2 Eos % (Auto) 0.1 0.2 Baso % (Auto) 0.1 0.1 Absolute Neuts (auto) 19.0 H 19.2 H Absolute Lymphs (auto) 0.45 L 0.46 L Nucleated RBC % 0 0 Differential Comment SCANNED SCANNED Sodium 137 Potassium 4.8 Chloride 100 Carbon Dioxide 30.0 Anion Gap 7 BUN 47 H Creatinine 0.91 Estim Creat Clear Calc 100.60 Est GFR (MDRD) Af Amer 108 Est GFR (MDRD) Non-Af 89 BUN/Creatinine Ratio 51.4 H Glucose 171 H Calcium 10.1 Total Bilirubin 0.70 AST 21 ALT 33 Alkaline Phosphatase 112 Total Protein 7.5 Albumin 2.1 L Globulin 5.4 H Albumin/Globulin Ratio 0.4 L 09/26/20 03:15 WBC RBC Hgb Hct MCV MCH MCHC RDW Std Deviation RDW Coeff of Kerline Plt Count MPV Immature Gran % (Auto) Neut % (Auto) Lymph % (Auto) [place] % (Auto) Eos % (Auto) Baso % (Auto) Absolute Neuts (auto) Absolute Lymphs (auto) Nucleated RBC % Differential Comment Sodium 137 Potassium 4.5 Chloride 101 Carbon Dioxide 29.0 Anion Gap 7 BUN 55 H Creatinine 0.99 Estim Creat Clear Calc 92.47 Est GFR (MDRD) Af Amer 99 Est GFR (MDRD) Non-Af 82 BUN/Creatinine Ratio 55.6 H Glucose 166 H Calcium 9.6 Total Bilirubin 0.60 AST 19 ALT 30 Alkaline Phosphatase 110 Total Protein 7.0 Albumin 1.8 L Globulin 5.2 H Albumin/Globulin Ratio 0.3 L Medical Necessity - Tobacco Use Smoking Status: Former smoker Tobacco Use: Cigarettes Assessment/Plan All Active Problems Hypoxia (Acute) Pneumonia due to COVID-19 virus (Acute) Acute respiratory failure with hypoxia (Acute) RECOMMENDATIONS: 1. Continue BiPAP therapy for sleep/rescue and wean FiO2 to maintain oxygen saturations at or above 90%. 2. Attempt to wean Precedex off 3. Completed Decadron 4. Continue Lovenox for prophylaxis. 5. Continue aggressive diuresis as tolerated with BMPs daily to monitor for complications IMPRESSIONS: 1. Acute hypoxemic respiratory failure secondary to COVID-19 pneumonia The patient presented to the hospital with approximately 1 week of Covid-like symptoms. He is currently maintaining appropriate oxygen saturations on BIPAP. Given his duration of symptoms and underlying multiple myeloma, the patient received convalescent plasma and completed a treatment course of remdesivir and Decadron. Continue to wean FiO2 to maintain saturations at or above 90%. Patient remains on relatively high oxygen requirements despite continued diuresis. Clinical suspicion for an element of atelectasis. Patient has been on Precedex for a week with no change in status. Patient was contemplating hospice previously, but persistence with Precedex definitely is not appropriate. We will attempt to wean down Precedex through the weekend with possible disposition to LTAC versus hospice next week 2. History of multiple myeloma on treatment/hypertension Complicates care, management, recovery and prognosis. Continue home medications as indicated. Inpatient E&M: [id number] [facility] L3
[2020-09-26] MEDS: 0.9% Saline Lock 10 ML Syringe IV ×2 (08:59→16:57)
[2020-09-26] MEDS: Enoxaparin 40 MG/0.4 ML Syringe SC (08:59)
[2020-09-26] MEDS: Furosemide 40 MG/4 ML Vial IV ×2 (08:59→16:57)
[2020-09-26] MEDS: Senna/Docusate Sodium 1 Tablet 2 TABLET PO (11:47)
[2020-09-26] MEDS: Polyethylene Glycol 3350 17 GM PACKET PO (11:47)
--- NOTE | 2020-09-26 11:55 | CM.UR ---
Participated in interdisciplinary rounds this am. Patient remains on Airvo. Is a DNRCC-A. No intubation. Patient is not currently participating in care. No participating with pulmonary toileting. Remains on presedex. Dr. Snow states they will start to wean it with plan to be totally off by Monday. They feel he needs to decide to participate or go hospice. Care management will remain involved in care and assist with discharge planning. April Erazo RN, CCM.
--- NOTE | 2020-09-26 14:14 | NURSING ---
updated on condition suggested she talk with they need to make a decision if they would want Hospice or [facility]
[2020-09-26] MEDS: Dexmedetomidine 1,000 mcg in 0.9% NS 240 mL 15.6 MCG CONT INF (14:20)
[2020-09-27] VITALS (33 sets, daily range): BP systolic 113–139; BP diastolic 84–98; PULSE 70–128; RESP 12–110; TEMP 36.3–36.7; O2SAT 86–96
--- NOTE | 2020-09-27 01:27 | CPS ---
nurse increased fio2 to 75% for low sat
--- NOTE | 2020-09-27 01:29 | NURSING ---
Pt. asking for a break from bipap. Placed back on Airvo 60L 90%. Will monitor.
[2020-09-27] MEDS: TITRATION PARAMETER CHANGE 1 EACH IV (03:10)
[2020-09-27 04:55] LABS: Absolute Lymphocyte Count 0.42 X10^3/uL (0.83-4.51); Absolute Neutrophil Count 16.5 X10^3/uL (2.0-7.7); Basophil# 0.03 X10^3/uL; Basophil% 0.2 % (0-1); Eosinophil# 0.02 X10^3/uL; Eosinophils% 0.1 % (0-5); Hematocrit 40.6 % (40-54); Hemoglobin 12.9 g/dL (13.0-16.5); Lymphocyte # 0.42 X10^3/ul (4.0); Lymphocyte % 2.4 % (19-41); Mean Corp Hgb Conc 31.8 g/dL (32-36); Mean Corpuscular Hgb 28.2 pg (27.0-32.0); Mean Corpuscular Volume 88.8 fL (80-94); Mean Platelet Vol. 10.5 fl (6.2-12.0); Monocyte# 0.39 X10^3/uL; Monocyte% 2.2 % (0-10); NRBC Flagged by Analyzer 0 % (0-5); Neutrophil # 16.51 X10^3/uL (2.7-7.7); Neutrophil % 94.2 % (47-70); POSITIVE DIFFERENTIAL YES; Platelet Count 139 K/mm3 (150-450); RBC Distribution Width CV 14.5 % (11.6-14.6); RBC Distribution Width SD 46.9 fl (35.1-43.9); Red Blood Count 4.57 M/mm3 (4.6-6.2); White Blood Count 17.5 K/mm3 (4.4-11.0)
[2020-09-27 04:57] LABS: Differential Indicated SCAN CRITERIA MET
[2020-09-27 05:08] LABS: ALB/GLOB Ratio 0.3 RATIO (0.9-2.4); AST(SGOT) 23 U/L (15-37); Alanine Aminotransfer ALT/SGPT 34 U/L (16-61); Albumin, Serum 1.7 g/dL (3.2-5.0); Alkaline Phosphatase 109 U/L (45-117); Anion Gap 7 (5-15); BUN 41 mg/dL (7-18); BUN/Creat Ratio 48.4 RATIO (10-20); Calcium,Total 9.5 mg/dL (8.5-10.1); Chloride 98 mmol/L (98-107); Creatinine, Serum 0.85 mg/dL (0.70-1.30); EST Glomerular Filtration Rate 98 mL/min (>60); Est Glom Filt Rate - Afr Amer 118 mL/min (>60); Globulin 5.2 g/dL (2.2-4.2); Glucose 167 mg/dL (74-106); Potassium 4.1 mmol/L (3.5-5.1); Protein, Total 6.9 g/dL (6.4-8.2); Sodium Level 136 mmol/L (136-145)
[2020-09-27 05:28] LABS: Differential Comment SCANNED
--- NOTE | 2020-09-27 07:17 | PN_ITS ---
Patient Problems: Active and Suspected Problems Hypoxia (Acute) Pneumonia due to COVID-19 virus (Acute) Acute respiratory failure with hypoxia (Acute) Reason for Visit: Follow-up on Acute hypoxic respiratory failure/COVID-19 pneumonia Subjective: Patient was seen and examined. No change from previous. Remains Airvo more. Appears less anxious. Objective: Physical exam: General: Alert, Oriented x3, Cooperative, on Airvo HEENT: Atraumatic, PERRLA, EOMI, Normocephalic Oral: Moist Mucosa Neck: Supple Lungs: Diminished Cardiovascular: Regular rate, Regular Rhythm, Normal S1, Normal S2 Abdomen: Bowel Sounds Present, Soft, Non Tender, Non-Distended, No Hepato- splenomegaly Extremities: No edema Skin: No rashes Musculoskeletal: No Tenderness to Palpation of Joints or Extremities Lymphatic: No Cervical, Supraclavicular, or Inguinal Adenopathy Neurological: Cranial nerves II-XII grossly intact, Neuro grossly intact Psych/Mental Status: Normal Affect, Appropriate Vitals/I&O's: Vital Signs Temp Pulse Resp BP Pulse Ox 97.6 F L 100 21 H 118/97 H 90 09/27/20 04:00 09/27/20 06:00 09/27/20 06:00 09/27/20 06:00 09/27/20 06:00 Oxygen Flow Rate (L/min) 60 Oxygen Delivery Method Airvo Weight: 102.3 kg Body Mass Index (BMI) 29.4 Intake and Output for Last 24 Hours 09/25/20 09/26/20 09/27/20 23:59 23:59 23:59 Intake Total 1815.33 / 1833.53 1383.57 / 1396.57 334.35 / 334.35 Output Total 2600 / 2650 2100 / 2100 275 / 275 Balance -784.67 / -816.47 -716.43 / -703.43 59.35 / 59.35 Laboratory Results 09/27/20 04:35: WBC 17.5 H, RBC 4.57 L, Hgb 12.9 L, Hct 40.6, MCV 88.8, MCH 28.2, MCHC 31.8 L, RDW Std Deviation 46.9 H, RDW Coeff of Kerline 14.5, Plt Count 139 L, MPV 10.5, Immature Gran % (Auto) 0.900, Neut % (Auto) 94.2 H, Lymph % (Auto) 2.4 L, [place] % (Auto) 2.2, Eos % (Auto) 0.1, Baso % (Auto) 0.2, Absolute Neuts (auto) 16.5 H, Absolute Lymphs (auto) 0.42 L, Nucleated RBC % 0, Differential Comment SCANNED 09/27/20 04:35: Sodium 136, Potassium 4.1, Chloride 98, Carbon Dioxide 31.0, Anion Gap 7, BUN 41 H, Creatinine 0.85, Estim Creat Clear Calc 107.70, Est GFR (MDRD) Af Amer 118, Est GFR (MDRD) Non-Af 98, BUN/Creatinine Ratio 48.4 H, Glucose 167 H, Calcium 9.5, Total Bilirubin 0.60, AST 23, ALT 34, Alkaline Phosphatase 109, Total Protein 6.9, Albumin 1.7 L, Globulin 5.2 H, Al bumin/Globulin Ratio 0.3 L Current Medications Acetaminophen (Acetaminophen 325 Mg Tablet) 650 mg PO Q6H PRN PRN PRN Reason: Pain Score 1-10/Temp > 100.7 F Last Admin: 09/25/20 20:43 Dose: 650 mg Documented by: Albuterol Sulfate (Albuterol Sulfate 8 Gm Inhaler (60 Puffs)) 2 puff INHALATION Q4H PRN PRN PRN Reason: Shortness of breath, wheezing Last Admin: 09/15/20 23:53 Dose: 2 puff Documented by: Enoxaparin Sodium (Enoxaparin 40 Mg/0.4 Ml Syringe) 40 mg SC DAILY [facility] Last Admin: 09/26/20 08:59 Dose: 40 mg Documented by: Furosemide (Furosemide 40 Mg/4 Ml Vial) 40 mg IV BID@1000,1700 [facility] Last Admin: 09/26/20 16:57 Dose: 40 mg Documented by: Dexmedetomidine HCl 1,000 mcg/ (Sodium Chloride) 250 mls @ 12.788 mls/hr CONT INF .[id number] [facility]; Protocol Last Titration: 09/27/20 06:00 Dose: 0.4 mcg/kg/hr, 10.2 mls/hr Documented by: Ondansetron HCl (Ondansetron 4 Mg/2 Ml Vial) 4 mg IV Q8H PRN PRN PRN Reason: NAUSEA/VOMITING Polyethylene Glycol (Polyethylene Glycol 3350 17 Gm Packet) 17 gm PO DAILY PRN PRN PRN Reason: Constipation Last Admin: 09/26/20 11:47 Dose: 17 gm Documented by: Senna/Docusate Sodium (Senna/Docusate Sodium 1 Tablet) 2 tablet PO BID PRN PRN PRN Reason: Constipation Last Admin: 09/26/20 11:47 Dose: 2 tablet Documented by: Sodium Chloride (0.9% Saline Lock 10 Ml Syringe) 10 - 40 ml IV UD PRN PRN Reason: SALINE FLUSH Last Admin: 09/26/20 16:57 Dose: 10 ml Documented by: Zolpidem Tartrate (Zolpidem Tartrate 5 Mg Tablet) 5 mg PO QHS PRN PRN PRN Reason: INSOMNIA STROKE Vital Signs/Narrative: Vital Signs Temp Pulse Resp BP Pulse Ox 09/27/20 06:00 100 21 H 118/97 H 90 09/27/20 05:05 98 25 H 96 09/27/20 05:00 100 27 H 123/95 H 93 09/27/20 04:00 97.6 F L 97 27 H 113/94 H 92 Medical Necessity - Tobacco Use Smoking Status: Former smoker Tobacco Use: Cigarettes Assessment/Plan All Active Problems Hypoxia (Acute) Pneumonia due to COVID-19 virus (Acute) Acute respiratory failure with hypoxia (Acute) 1. Acute hypoxic respiratory failure secondary to acute COVID-19 pneumonia, remains unchanged from yesterday, no improvement. Still on Airvo/Bipap, continue with breathing treatments, encourage use of incentive spirometer. Wean off oxygen for SPO2 more than 94% 2. Anxiety disorder, persistent, on Precedex, Will continue to attempt wean off Precedex 3. Severe sepsis secondary to acute COVID-19 pneumonia, very minimally improved Admitting lactic acid of 2.6. Completed dexamethasone, convalescent plasma and remdesivir on 09/16/20 ID and pulmonology following 4. Hypertension, now relatively hypotensive secondary to use of Precedex Map remains above 65, off lisinopril, will continue to monitor 5. Multiple myeloma, follow-up with outpatient plan 6. DVT prophylaxis with Lovenox subcu Inpatient E&M: 91243 [facility] Hosp L3
--- NOTE | 2020-09-27 07:18 | PN_ITS ---
Subjective: Patient did okay overnight. Patient did have some desaturation and required an increase in Precedex secondary to tachypnea with addition of BiPAP. Patient continues to be minimally participating in his recovery. Patient denies any pain and overall feels he is doing okay. General: Alert, Cooperative - Intermittently, No apparent distress, - - No accessory muscle use noted. HEENT: Atraumatic, PERRLA, EOMI, Normocephalic, - - No epistaxis. Scleral injection without icterus Oral: Moist Mucosa, No Gingival or Mucosal Lesions/ Ulcerations Neck: Supple, No JVD, No Nodes, Trachea Midline Lungs: No rhonchi, No wheeze, No rales, Diminished, - - Fair effort. Symmetric expansion Cardiovascular: Normal S1, Normal S2, No murmurs, No rub noted, No Gallop, Tachycardic Abdomen: Bowel Sounds Present, Soft, Non Tender, Non-Distended Extremities: No clubbing, No cyanosis, Edema Skin: No rashes, No breakdown Musculoskeletal: No Tenderness to Palpation of Joints or Extremities Lymphatic: No Cervical, Supraclavicular, or Inguinal Adenopathy Neurological: Cranial nerves II-XII grossly intact, Neuro grossly intact, Motor Exam 5/5 strength throughout Psych/Mental Status: Appropriate, Flat Affect Vital Signs Temp Pulse Resp BP Pulse Ox 36.4 C L 100 21 H 118/97 H 90 09/27/20 04:00 09/27/20 06:00 09/27/20 06:00 09/27/20 06:00 09/27/20 06:00 Oxygen Flow Rate (L/min) 60 Oxygen Delivery Method Airvo Weight: 102.3 kg Body Mass Index (BMI) 29.4 Intake and Output for Last 24 Hours 09/25/20 09/26/20 09/27/20 23:59 23:59 23:59 Intake Total 1815.33 / 1833.53 1383.57 / 1396.57 334.35 / 334.35 Output Total 2600 / 2650 2100 / 2100 275 / 275 Balance -784.67 / -816.47 -716.43 / -703.43 59.35 / 59.35 Labs (Last 48 Hours) 09/26/20 09/26/20 09/27/20 03:15 03:15 04:35 WBC 20.4 H 17.5 H RBC 4.71 4.57 L Hgb 13.3 12.9 L Hct 42.1 40.6 MCV 89.4 88.8 MCH 28.2 28.2 MCHC 31.6 L 31.8 L RDW Std Deviation 46.8 H 46.9 H RDW Coeff of Kerline 14.5 14.5 Plt Count 148 L 139 L MPV 11.2 10.5 Immature Gran % (Auto) 1.000 H 0.900 Neut % (Auto) 94.2 H 94.2 H Lymph % (Auto) 2.3 L 2.4 L [place] % (Auto) 2.2 2.2 Eos % (Auto) 0.2 0.1 Baso % (Auto) 0.1 0.2 Absolute Neuts (auto) 19.2 H 16.5 H Absolute Lymphs (auto) 0.46 L 0.42 L Nucleated RBC % 0 0 Differential Comment SCANNED SCANNED Sodium 137 Potassium 4.5 Chloride 101 Carbon Dioxide 29.0 Anion Gap 7 BUN 55 H Creatinine 0.99 Estim Creat Clear Calc 92.47 Est GFR (MDRD) Af Amer 99 Est GFR (MDRD) Non-Af 82 BUN/Creatinine Ratio 55.6 H Glucose 166 H Calcium 9.6 Total Bilirubin 0.60 AST 19 ALT 30 Alkaline Phosphatase 110 Total Protein 7.0 Albumin 1.8 L Globulin 5.2 H Albumin/Globulin Ratio 0.3 L 09/27/20 04:35 WBC RBC Hgb Hct MCV MCH MCHC RDW Std Deviation RDW Coeff of Kerline Plt Count MPV Immature Gran % (Auto) Neut % (Auto) Lymph % (Auto) [place] % (Auto) Eos % (Auto) Baso % (Auto) Absolute Neuts (auto) Absolute Lymphs (auto) Nucleated RBC % Differential Comment Sodium 136 Potassium 4.1 Chloride 98 Carbon Dioxide 31.0 Anion Gap 7 BUN 41 H Creatinine 0.85 Estim Creat Clear Calc 107.70 Est GFR (MDRD) Af Amer 118 Est GFR (MDRD) Non-Af 98 BUN/Creatinine Ratio 48.4 H Glucose 167 H Calcium 9.5 Total Bilirubin 0.60 AST 23 ALT 34 Alkaline Phosphatase 109 Total Protein 6.9 Albumin 1.7 L Globulin 5.2 H Albumin/Globulin Ratio 0.3 L Medical Necessity - Tobacco Use Smoking Status: Former smoker Tobacco Use: Cigarettes Assessment/Plan All Active Problems Hypoxia (Acute) Pneumonia due to COVID-19 virus (Acute) Acute respiratory failure with hypoxia (Acute) RECOMMENDATIONS: 1. Continue BiPAP therapy for sleep/rescue and wean FiO2 to maintain oxygen saturations at or above 90%. 2. Attempt to wean Precedex off 3. Completed Decadron 4. Continue Lovenox for prophylaxis. 5. Continue aggressive diuresis as tolerated with BMPs daily to monitor for complications 6. Encourage patient participation in recovery IMPRESSIONS: 1. Acute hypoxemic respiratory failure secondary to COVID-19 pneumonia The patient presented to the hospital with approximately 1 week of Covid- like symptoms. He is currently maintaining appropriate oxygen saturations on BIPAP. Given his duration of symptoms and underlying multiple myeloma, the patient received convalescent plasma and completed a treatment course of remdesivir and Decadron. Continue to wean FiO2 to maintain saturations at or above 90%. Patient remains on relatively high oxygen requirements despite continued diuresis. Clinical suspicion for lack of improvement secondary to lack of patient participation. This may be in part secondary to Precedex. We will attempt to wean down Precedex through the weekend with possible disposition to LTAC versus hospice next week 2. History of multiple myeloma on treatment/hypertension Complicates care, management, recovery and prognosis. Continue home medications as indicated. Inpatient E&M: 90075 Subs Hosp L3
[2020-09-27] MEDS: 0.9% Saline Lock 10 ML Syringe IV ×2 (08:13→16:42)
[2020-09-27] MEDS: Enoxaparin 40 MG/0.4 ML Syringe SC (08:13)
[2020-09-27] MEDS: Furosemide 40 MG/4 ML Vial IV ×2 (08:13→16:42)
[2020-09-27] MEDS: Polyethylene Glycol 3350 17 GM PACKET PO (08:13)
[2020-09-27] MEDS: Senna/Docusate Sodium 1 Tablet 2 TABLET PO (08:13)
[2020-09-27] MEDS: Dexmedetomidine 1,000 mcg in 0.9% NS 240 mL 10.2 MCG CONT INF (10:58)
[2020-09-28] VITALS (34 sets, daily range): BP systolic 99–143; BP diastolic 79–112; PULSE 115–160; RESP 23–42; TEMP 35.9–36.8; O2SAT 72–95
[2020-09-28] MEDS: TITRATION PARAMETER CHANGE 1 EACH IV (03:42)
[2020-09-28 04:17] LABS: Absolute Lymphocyte Count 0.44 X10^3/uL (0.83-4.51); Absolute Neutrophil Count 14.3 X10^3/uL (2.0-7.7); Basophil# 0.02 X10^3/uL; Basophil% 0.1 % (0-1); Eosinophil# 0.08 X10^3/uL; Eosinophils% 0.5 % (0-5); Hematocrit 40.7 % (40-54); Hemoglobin 13.3 g/dL (13.0-16.5); Lymphocyte # 0.44 X10^3/ul (4.0); Lymphocyte % 2.9 % (19-41); Mean Corp Hgb Conc 32.7 g/dL (32-36); Mean Corpuscular Hgb 28.8 pg (27.0-32.0); Mean Corpuscular Volume 88.1 fL (80-94); Mean Platelet Vol. 11.1 fl (6.2-12.0); Monocyte# 0.35 X10^3/uL; Monocyte% 2.3 % (0-10); NRBC Flagged by Analyzer 0 % (0-5); Neutrophil # 14.26 X10^3/uL (2.7-7.7); POSITIVE DIFFERENTIAL YES; Platelet Count 173 K/mm3 (150-450); RBC Distribution Width CV 14.6 % (11.6-14.6); RBC Distribution Width SD 46.2 fl (35.1-43.9); Red Blood Count 4.62 M/mm3 (4.6-6.2); White Blood Count 15.3 K/mm3 (4.4-11.0)
[2020-09-28 04:18] LABS: Differential Indicated SCAN CRITERIA MET
[2020-09-28] MEDS: Acetaminophen 325 MG Tablet 650 MG PO ×3 (04:20→22:49)
--- NOTE | 2020-09-28 04:20 | CPS ---
PT PLACED BACK ON AIRVO PER NURSE
[2020-09-28 04:32] LABS: ALB/GLOB Ratio 0.3 RATIO (0.9-2.4); AST(SGOT) 28 U/L (15-37); Alanine Aminotransfer ALT/SGPT 38 U/L (16-61); Albumin, Serum 1.7 g/dL (3.2-5.0); Alkaline Phosphatase 121 U/L (45-117); Anion Gap 8 (5-15); BUN 36 mg/dL (7-18); BUN/Creat Ratio 41.8 RATIO (10-20); Calcium,Total 9.5 mg/dL (8.5-10.1); Chloride 94 mmol/L (98-107); Creatinine, Serum 0.86 mg/dL (0.70-1.30); EST Glomerular Filtration Rate 96 mL/min (>60); Est Glom Filt Rate - Afr Amer 116 mL/min (>60); Estimated Creatinine Clearance 106.44 ml/min; Globulin 5.3 g/dL (2.2-4.2); Glucose 200 mg/dL (74-106); Potassium 3.7 mmol/L (3.5-5.1); Sodium Level 133 mmol/L (136-145)
[2020-09-28 04:48] LABS: Differential Comment SCANNED
--- NOTE | 2020-09-28 05:58 | PN_ITS ---
Subjective: The patient was seen and examined at the bedside this morning. Events from the last 24 hours have been reviewed. The patient is currently afebrile, hemodynamically stable and maintaining appropriate oxygen saturations on Airvo heated high flow with an FiO2 requirement of 85% and flow rate of 60 L/min. Orders to discontinue the patient's Precedex were placed this morning and the infusion was shut off at 0615. The patient only wore BiPAP last night for approximately 1 hour. He has not been participating with therapy. He did voice to me an interest this morning in pursuing disposition to [facility]. Objective: The patient's most recent lab work, culture data and imaging studies have all been personally reviewed. Coronavirus PCR was positive on September 08. General: Alert, Cooperative, No apparent distress HEENT: Atraumatic, Normocephalic Oral: No Gingival or Mucosal Lesions/ Ulcerations Neck: Supple, No Nodes, Trachea Midline Lungs: No rhonchi, No wheeze, No rales, Diminished Cardiovascular: Normal S1, Normal S2, No murmurs, Tachycardic Abdomen: Bowel Sounds Present, Soft, Non Tender Extremities: No clubbing, No cyanosis, No edema Skin: No breakdown Musculoskeletal: No Tenderness to Palpation of Joints or Extremities Lymphatic: No Cervical, Supraclavicular, or Inguinal Adenopathy Neurological: Cranial nerves II-XII grossly intact, Neuro grossly intact Psych/Mental Status: Flat Affect Vital Signs Temp Pulse Resp BP Pulse Ox 98.2 F 120 H 27 H 119/90 H 91 09/28/20 04:00 09/28/20 05:00 09/28/20 05:00 09/28/20 05:00 09/28/20 05:00 Oxygen Flow Rate (L/min) 60 Oxygen Delivery Method Airvo Weight: 223 lb 1.725 oz Body Mass Index (BMI) 29.4 Intake and Output for Last 24 Hours 09/26/20 09/27/20 09/28/20 23:59 23:59 23:59 Intake Total 1383.57 / 1396.57 1884.92 / 1895.12 296.80 / 296.80 Output Total 2099 / 2100 3325 / 3325 175 / 175 Balance -716.43 / -703.43 -1440.08 / -1429.88 121.80 / 121.80 Labs (Last 48 Hours) 09/27/20 09/27/20 09/28/20 04:35 04:35 04:08 WBC 17.5 H 15.3 H RBC 4.57 L 4.62 Hgb 12.9 L 13.3 Hct 40.6 40.7 MCV 88.8 88.1 MCH 28.2 28.8 MCHC 31.8 L 32.7 RDW Std Deviation 46.9 H 46.2 H RDW Coeff of Kerline 14.5 14.6 Plt Count 139 L 173 MPV 10.5 11.1 Immature Gran % (Auto) 0.900 1.200 H Neut % (Auto) 94.2 H 93.0 H Lymph % (Auto) 2.4 L 2.9 L [place] % (Auto) 2.2 2.3 Eos % (Auto) 0.1 0.5 Baso % (Auto) 0.2 0.1 Absolute Neuts (auto) 16.5 H 14.3 H Absolute Lymphs (auto) 0.42 L 0.44 L Nucleated RBC % 0 0 Differential Comment SCANNED SCANNED Sodium 136 Potassium 4.1 Chloride 98 Carbon Dioxide 31.0 Anion Gap 7 BUN 41 H Creatinine 0.85 Estim Creat Clear Calc 107.70 Est GFR (MDRD) Af Amer 118 Est GFR (MDRD) Non-Af 98 BUN/Creatinine Ratio 48.4 H Glucose 167 H Calcium 9.5 Total Bilirubin 0.60 AST 23 ALT 34 Alkaline Phosphatase 109 Total Protein 6.9 Albumin 1.7 L Globulin 5.2 H Albumin/Globulin Ratio 0.3 L 09/28/20 04:08 WBC RBC Hgb Hct MCV MCH MCHC RDW Std Deviation RDW Coeff of Kerline Plt Count MPV Immature Gran % (Auto) Neut % (Auto) Lymph % (Auto) [place] % (Auto) Eos % (Auto) Baso % (Auto) Absolute Neuts (auto) Absolute Lymphs (auto) Nucleated RBC % Differential Comment Sodium 133 L Potassium 3.7 Chloride 94 L Carbon Dioxide 31.0 Anion Gap 8 BUN 36 H Creatinine 0.86 Estim Creat Clear Calc 106.44 Est GFR (MDRD) Af Amer 116 Est GFR (MDRD) Non-Af 96 BUN/Creatinine Ratio 41.8 H Glucose 200 H Calcium 9.5 Total Bilirubin 0.60 AST 28 ALT 38 Alkaline Phosphatase 121 H Total Protein 7.0 Albumin 1.7 L Globulin 5.3 H Albumin/Globulin Ratio 0.3 L Clinical Impression(s) from Imaging Studies Chest X-Ray 09/14/20 16:21 IMPRESSION: Bibasilar airspace disease increased Electronically Signed: Iban Andino MD at 17:19 EST , Service support , Chest X-Ray 09/23/20 12:55 IMPRESSION: Progressive bilateral pulmonary infiltrates as compared to prior study. Electronically Signed: [place], at 15:25 EST , Service support , Medical Necessity - Tobacco Use Smoking Status: Former smoker Tobacco Use: Cigarettes Assessment/Plan All Active Problems Hypoxia (Acute) Pneumonia due to COVID-19 virus (Acute) Acute respiratory failure with hypoxia (Acute) RECOMMENDATIONS: 1. Continue Airvo and wean FiO2 to maintain oxygen saturations at or above 90%. 2. Discontinue Precedex and start BuSpar, if needed, for anxiety. 3. Continue Lovenox for prophylaxis. 4. Continue diuresis as tolerated by hemodynamics and renal function. 5. Encourage incentive spirometer use and mobilize patient as tolerated. 6. Disposition planning per case management. IMPRESSIONS: 1. Acute hypoxemic respiratory failure secondary to COVID-19 pneumonia The patient presented to the hospital with approximately 1 week of Covid-like symptoms. He is currently maintaining appropriate oxygen saturations on Airvo heated high flow. Given his duration of symptoms and underlying multiple myeloma, the patient received convalescent plasma and completed a treatment course of remdesivir and Decadron. Continue to wean FiO2 to maintain saturations at or above 90%. Continue attempts at diuresis with IV Lasix as tolerated by hemodynamics and renal function. Encourage incentive spirometer use and mobilize patient as tolerated. 2. History of multiple myeloma on treatment/hypertension Complicates care, management, recovery and prognosis. Continue home medications as indicated. This note was generated with [employer] software. It may contain incorrect words, spelling, and punctuation that were not noted in checking the note before signing. Inpatient E&M: 22709 [facility] Hosp L3
[2020-09-28] MEDS: 0.9% Saline Lock 10 ML Syringe IV ×4 (06:17→22:48)
--- NOTE | 2020-09-28 08:46 | CPS ---
Changed pt interface at this time due to head strap breaking.
[2020-09-28] MEDS: Enoxaparin 40 MG/0.4 ML Syringe SC (10:23)
[2020-09-28] MEDS: Furosemide 40 MG/4 ML Vial IV ×2 (10:24→16:35)
[2020-09-28] MEDS: Senna/Docusate Sodium 1 Tablet 2 TABLET PO ×2 (10:25→22:49)
[2020-09-28] MEDS: Polyethylene Glycol 3350 17 GM PACKET PO (10:25)
[2020-09-28] MEDS: busPIRone 5 MG Tablet PO ×2 (10:35→22:49)
[2020-09-28] MEDS: Lisinopril 10 MG Tablet PO (11:21)
--- NOTE | 2020-09-28 11:55 | NURSING ---
Bipap applied at 1030 due to low saturations of 84% on AIRVO. Fio2 turned up to 100% Saturations increased to 93%. Dr. Morfin notified. This nurse rechecked on patient at 1130 and saturations were 97% so Fi02 turned down to 75% however, patient was not willing to stay on the the bipap any longer. Patient taken off of bipap and AIRVO re-applied. Saturations 91% on AIRVO. 1200- patient saturations 86% on Airvo, RT notified
--- NOTE | 2020-09-28 12:44 | CASEMGMT ---
MUSHTAQ RAMSEY Note: Called to patient room to discuss LTACH referral. Explained purpose of LTACH including higher level of care with24 hour respiratory therapy and physician coverage than SNF. Discussed Dr. Morfin recommended this level of care for the patient. The patient is agreeable, and states he would like MUSHTAQ RAMSEY to talk with his . Call to who was [facility]. Explained in detail the difference in levels of care between recommended LTACH and SNF. did understand after many questions and discussion and is agreeable. Preference is for [place] [facility], but is aware that bed availability may make [place] facility necessary. -Call to Zoie Hoffman @ [facility]. Referral faxed to her for review. -Jermaine Lino PH: [phone] FX: [phone] -nurse Castañeda updated on above. Eleno STEVENSONN RN ACM
--- NOTE | 2020-09-28 12:53 | PN.ID_ITS ---
Patient Problems: Active and Suspected Problems Hypoxia (Acute) Pneumonia due to COVID-19 virus (Acute) Acute respiratory failure with hypoxia (Acute) Subjective: No fever, sleepy, some dyspnea - Physical Exam Vitals/I&O's: Vital Signs Temp Pulse Resp BP Pulse Ox 98.0 F 143 H 27 H 138/97 H 81 09/28/20 12:00 09/28/20 12:00 09/28/20 12:00 09/28/20 12:00 09/28/20 12:00 Oxygen Flow Rate (L/min) 60 Oxygen Delivery Method Airvo Weight: 101.2 kg Body Mass Index (BMI) 29.4 Intake and Output for Last 24 Hours 09/26/20 09/27/20 09/28/20 23:59 23:59 23:59 Intake Total 1383.57 / 1396.57 1884.92 / 1895.12 419.99 / 419.99 Output Total 2100 / 2100 3325 / 3325 400 / 400 Balance -716.43 / -703.43 -1440.08 / -1429.88 19.99 / 19.99 General: Cooperative, No apparent distress Lungs: Diminished, Wheezes Cardiovascular: Irregular Rate, Tachycardic Abdomen: Soft, Non Tender, Non-Distended Skin: No rashes Laboratory Results 09/28/20 04:08: WBC 15.3 H, RBC 4.62, Hgb 13.3, Hct 40.7, MCV 88.1, MCH 28.8, MCHC 32.7, RDW Std Deviation 46.2 H, RDW Coeff of Kerline 14.6, Plt Count 173, MPV 11.1, Immature Gran % (Auto) 1.200 H, Neut % (Auto) 93.0 H, Lymph % (Auto) 2.9 L , [place] % (Auto) 2.3, Eos % (Auto) 0.5, Baso % (Auto) 0.1, Absolute Neuts (auto) 14.3 H, Absolute Lymphs (auto) 0.44 L, Nucleated RBC % 0, Differential Comment SCANNED 09/28/20 04:08: Sodium 133 L, Potassium 3.7, Chloride 94 L, Carbon Dioxide 31.0, Anion Gap 8, BUN 36 H, Creatinine 0.86, Estim Creat Clear Calc 106.44, Est GFR (MDRD) Af Amer 116, Est GFR (MDRD) Non-Af 96, BUN/Creatinine Ratio 41.8 H, Glucose 200 H, Calcium 9.5, Total Bilirubin 0.60, AST 28, ALT 38, Alkaline Phosphatase 121 H, Total Protein 7.0, Albumin 1.7 L, Globulin 5.3 H, Albumin/Globulin Ratio 0.3 L Current Medications Acetaminophen (Acetaminophen 325 Mg Tablet) 650 mg PO Q6H PRN PRN PRN Reason: Pain Score 1-10/Temp > 100.7 F Last Admin: 09/28/20 04:20 Dose: 650 mg Documented by: Albuterol Sulfate (Albuterol Sulfate 8 Gm Inhaler (60 Puffs)) 2 puff INHALATION Q4H PRN PRN PRN Reason: Shortness of breath, wheezing Last Admin: 09/15/20 23:53 Dose: 2 puff Documented by: Buspirone HCl (Buspirone 5 Mg Tablet) 5 mg PO BID [facility] Last Admin: 09/28/20 10:35 Dose: 5 mg Documented by: Enoxaparin Sodium (Enoxaparin 40 Mg/0.4 Ml Syringe) 40 mg SC DAILY [facility] Last Admin: 09/28/20 10:23 Dose: 40 mg Documented by: Furosemide (Furosemide 40 Mg/4 Ml Vial) 40 mg IV BID@1000,1700 [facility] Last Admin: 09/28/20 10:24 Dose: 40 mg Documented by: Lisinopril (Lisinopril 10 Mg Tablet) 10 mg PO DAILY [facility] Last Admin: 09/28/20 11:21 Dose: 10 mg Documented by: Ondansetron HCl (Ondansetron 4 Mg/2 Ml Vial) 4 mg IV Q8H PRN PRN PRN Reason: NAUSEA/VOMITING Polyethylene Glycol (Polyethylene Glycol 3350 17 Gm Packet) 17 gm PO DAILY [facility] Last Admin: 09/28/20 10:25 Dose: 17 gm Documented by: Senna/Docusate Sodium (Senna/Docusate Sodium 1 Tablet) 2 tablet PO BID [facility] Last Admin: 09/28/20 10:25 Dose: 2 tablet Documented by: Sodium Chloride (0.9% Saline Lock 10 Ml Syringe) 10 - 40 ml IV UD PRN PRN Reason: SALINE FLUSH Last Admin: 09/28/20 10:26 Dose: 30 ml Documented by: Zolpidem Tartrate (Zolpidem Tartrate 5 Mg Tablet) 5 mg PO QHS PRN PRN PRN Reason: INSOMNIA Medical Necessity - Tobacco Use Smoking Status: Former smoker Tobacco Use: Cigarettes Route of nutrition/ use of supplements: [] Nutritional Intake: [] IV Site: [] [place]arks Catheter: [] - Assessment/Plan Antibiotics: [] Assessment/Plan: [] Active and Suspected Problems Hypoxia (Acute) Pneumonia due to COVID-19 virus (Acute) Acute respiratory failure with hypoxia (Acute) covid with hypoxic resp failure - completed dex, completed 5 days of remdesivir and received 09/15 plasma. On airvo this AM. Wheezing, would be ok to restart dex. Will follow, d/w Dr. Morfin
--- NOTE | 2020-09-28 13:52 | PN_ITS ---
Patient Problems: Active and Suspected Problems Hypoxia (Acute) Pneumonia due to COVID-19 virus (Acute) Acute respiratory failure with hypoxia (Acute) Subjective: Patient was seen and examined today, he is on a nonrebreather mask, patient does not complain of any chills or fevers to this examiner and has no complaints of any chest pain. - Physical Exam Vitals/I&O's: Vital Signs Temp Pulse Resp BP Pulse Ox 98.0 F 141 H 30 H 126/89 H 86 09/28/20 12:00 09/28/20 13:00 09/28/20 13:00 09/28/20 13:00 09/28/20 13:00 Oxygen Flow Rate (L/min) 60 Oxygen Delivery Method Airvo Weight: 101.2 kg Body Mass Index (BMI) 29.4 Intake and Output for Last 24 Hours 09/26/20 09/27/20 09/28/20 23:59 23:59 23:59 Intake Total 1383.57 / 1396.57 1884.92 / 1895.12 419.99 / 419.99 Output Total 2100 / 2100 3325 / 3325 400 / 400 Balance -716.43 / -703.43 -1440.08 / -1429.88 19.99 / 19.99 General: Alert, Oriented x3, Cooperative, No apparent distress, Well developed HEENT: Atraumatic, PERRLA, EOMI, Normocephalic Oral: Moist Mucosa Neck: Supple, No JVD, Trachea Midline, Thyroid Normal Size and Texture Lungs: Clear to auscultation, No rhonchi, No wheeze, No rales, Diminished Cardiovascular: Regular rate, No murmurs Abdomen: Bowel Sounds Present, Soft, Non Tender, Non-Distended Extremities: No clubbing, No cyanosis, No edema, Capillary Refill Less than 3 Seconds Skin: No rashes, No breakdown Musculoskeletal: No Tenderness to Palpation of Joints or Extremities Neurological: Cranial nerves II-XII grossly intact, Neuro grossly intact, Sensory exam intact to light touch and pain Psych/Mental Status: Normal Affect, Appropriate, Alert and oriented to time, place, person, mood and affect Laboratory Results 09/28/20 04:08: WBC 15.3 H, RBC 4.62, Hgb 13.3, Hct 40.7, MCV 88.1, MCH 28.8, MCHC 32.7, RDW Std Deviation 46.2 H, RDW Coeff of Kerline 14.6, Plt Count 173, MPV 11.1, Immature Gran % (Auto) 1.200 H, Neut % (Auto) 93.0 H, Lymph % (Auto) 2.9 L , [place] % (Auto) 2.3, Eos % (Auto) 0.5, Baso % (Auto) 0.1, Absolute Neuts (auto) 14.3 H, Absolute Lymphs (auto) 0.44 L, Nucleated RBC % 0, Differential Comment SCANNED 09/28/20 04:08: Sodium 133 L, Potassium 3.7, Chloride 94 L, Carbon Dioxide 31.0, Anion Gap 8, BUN 36 H, Creatinine 0.86, Estim Creat Clear Calc 106.44, Est GFR (MDRD) Af Amer 116, Est GFR (MDRD) Non-Af 96, BUN/Creatinine Ratio 41.8 H, Glucose 200 H, Calcium 9.5, Total Bilirubin 0.60, AST 28, ALT 38, Alkaline Phosphatase 121 H, Total Protein 7.0, Albumin 1.7 L, Globulin 5.3 H, Albumin/Globulin Ratio 0.3 L Current Medications Acetaminophen (Acetaminophen 325 Mg Tablet) 650 mg PO Q6H PRN PRN PRN Reason: Pain Score 1-10/Temp > 100.7 F Last Admin: 09/28/20 04:20 Dose: 650 mg Documented by: Albuterol Sulfate (Albuterol Sulfate 8 Gm Inhaler (60 Puffs)) 2 puff INHALATION Q4H PRN PRN PRN Reason: Shortness of breath, wheezing Last Admin: 09/15/20 23:53 Dose: 2 puff Documented by: Buspirone HCl (Buspirone 5 Mg Tablet) 5 mg PO BID [facility] Last Admin: 09/28/20 10:35 Dose: 5 mg Documented by: Enoxaparin Sodium (Enoxaparin 40 Mg/0.4 Ml Syringe) 40 mg SC DAILY [facility] Last Admin: 09/28/20 10:23 Dose: 40 mg Documented by: Furosemide (Furosemide 40 Mg/4 Ml Vial) 40 mg IV BID@1000,1700 [facility] Last Admin: 09/28/20 10:24 Dose: 40 mg Documented by: Lisinopril (Lisinopril 10 Mg Tablet) 10 mg PO DAILY [facility] Last Admin: 09/28/20 11:21 Dose: 10 mg Documented by: Ondansetron HCl (Ondansetron 4 Mg/2 Ml Vial) 4 mg IV Q8H PRN PRN PRN Reason: NAUSEA/VOMITING Polyethylene Glycol (Polyethylene Glycol 3350 17 Gm Packet) 17 gm PO DAILY [facility] Last Admin: 09/28/20 10:25 Dose: 17 gm Documented by: Senna/Docusate Sodium (Senna/Docusate Sodium 1 Tablet) 2 tablet PO BID [facility] Last Admin: 09/28/20 10:25 Dose: 2 tablet Documented by: Sodium Chloride (0.9% Saline Lock 10 Ml Syringe) 10 - 40 ml IV UD PRN PRN Reason: SALINE FLUSH Last Admin: 09/28/20 10:26 Dose: 30 ml Documented by: Zolpidem Tartrate (Zolpidem Tartrate 5 Mg Tablet) 5 mg PO QHS PRN PRN PRN Reason: INSOMNIA Medical Necessity - Tobacco Use Smoking Status: Former smoker Tobacco Use: Cigarettes Assessment/Plan All Active Problems Hypoxia (Acute) Pneumonia due to COVID-19 virus (Acute) Acute respiratory failure with hypoxia (Acute) #1 COVID-19 pneumonia-patient is already received treatment for this #2 acute hypoxic respiratory failure secondary to COVID-19 pneumonia-pulmonary medicine is participating in his care, he is currently on high flow oxygen #3 multiple myeloma #4 essential hypertension #5 severe protein and caloric malnutrition-dietary is participating in his care Inpatient E&M: 11310 Subs Hosp L2
[2020-09-28] MEDS: Ondansetron 4 MG/2 ML Vial IV ×2 (14:45→22:49)
--- NOTE | 2020-09-28 16:05 | CASEMGMT ---
RN CM Note: Call to patient to update re: LTAC referral. RN CM will check in am re: which facility has a bed available and will need insurance authorization prior to transfer. Eleno KOCH RN ACM
--- NOTE | 2020-09-28 22:19 | EKG12_ITS ---
Test Reason : Blood Pressure : / mmHG Vent. Rate : 150 BPM Atrial Rate : 187 BPM P-R Int : 000 ms QRS Dur : 102 ms QT Int : 326 ms P-R-T Axes : 000 042 -66 degrees QTc Int : 515 ms Poor data quality, interpretation may be adversely affected Atrial fibrillation Nonspecific ST and T wave abnormality , probably digitalis effect Abnormal ECG When compared with ECG of 28-SEP-2020 11:34, MANUAL COMPARISON REQUIRED, DATA IS UNCONFIRMED Confirmed by FREDY MCINTYRE, SHREYAS ([id number]), book editor DANGELO PINEDO ([id number]) on 10/16/2020 4:09:32 PM Referred By: NIC Confirmed By:ALANNAH DANIEL MD
--- NOTE | 2020-09-28 22:34 | EKG12_ITS ---
Test Reason : RHYTHM CHANGE Blood Pressure : / mmHG Vent. Rate : 143 BPM Atrial Rate : 143 BPM P-R Int : 146 ms QRS Dur : 088 ms QT Int : 338 ms P-R-T Axes : 043 010 039 degrees QTc Int : 521 ms Sinus tachycardia Nonspecific ST and T wave abnormality Abnormal ECG When compared with ECG of 23-SEP-2020 09:25, Nonspecific T wave abnormality now evident in Lateral leads Confirmed by SAULO MCINTYRE, DOMINGA ([id number]), primer expeditor and drier AURA GATES ([id number]) on 10/06/2020 9:42:01 AM Referred By: SOHAIL Confirmed By:DOMINGA VERNON MD
[2020-09-28] MEDS: dilTIAZem 25 MG/5 ML Vial 10 MG IV BOLUS (22:43)
--- NOTE | 2020-09-28 23:09 | RAD_ITS ---
HISTORY: Nausea. Vomiting. 4 images of the abdomen. No comparison imaging. Findings: Basilar airspace disease. Right hip prosthesis. Dextroscoliosis with degenerative disc disease. Gaseous distention of the stomach, small bowel, and colon. No air-fluid levels perceived. No free air. No pneumatosis. No organomegaly. RAD/Abd Decub and/or Erect(Portabl IMPRESSION: Gaseous distention of small bowel and colon but not a pathological degree, perhaps decreased motility. Basilar airspace disease suggestive of pneumonia Comparison chest x-ray is from September 23. at 0001 Reported and signed by: Clyde Knapp MD Electronically Signed: Clyde Knapp MD at 0:00 EST Tel , Service support ,
--- NOTE | 2020-09-28 23:10 | PCM.HOSP.N ---
Hospitalist Note Patient with tachycardia, confirmed atrial fibrillation which is chronic for patient, given cardizem bolus with transient improvement, will place on drip and closely watch pressures as currently maintaining appropriate MAP >65 for SBP remain low. Additionally, complaining of abdominal discomfort, will obtain KUB, had noted large BP today per discussion with staff.
--- NOTE | 2020-09-28 23:56 | NURSING ---
patient started on cardizem gtt for afib RVR. oxygen saturations remain in 70's to 80's on airvo 60L/94%. Had a conversation with the patient about trying bipap and he stated that he will not use it. I offered to get something for anxiety to help tolerate the bipap and he continued to refuse. Patient was informed that if he we can not get his oxygen saturations up on airvo and he won't use the bipap that he is not doing well and will . He may not make it through the night and more than likely will not live beyond 24 hours. He stated That's ok. I am ready to . If I have to wear the bipap I would rather . Dr. Vásquez notified. No new orders received.
[2020-09-29] VITALS: BP 119/59; PULSE 145; PULSE 157; RESP 49; O2SAT 79
--- NOTE | 2020-09-29 00:07 | NURSING ---
notified that the patient is not doing well and she is coming into the hospital to be with him
--- NOTE | 2020-09-29 00:08 | NURSING ---
patient put director economic light and Carmen RN answered it in the room. Patient asked for the bipap and denies nausea/vomiting at this time. Placed on bipap.
[2020-09-29 00:10] VITALS: PULSE 142; RESP 12; RESP 46; O2SAT 91
[2020-09-29 00:14] VITALS: BP 105/91; PULSE 155; RESP 43; O2SAT 88
[2020-09-29 00:30] VITALS: BP 97/67; PULSE 148; RESP 38; O2SAT 90
--- NOTE | 2020-09-29 00:50 | NURSING ---
Patient put longitudinal float operator light. This nurse entered the room and the patient stated he couldn't tolerate the bipap. MUSHTAQ Sánchez notified Dr. Vásquez who stated she was going to enter an order for ativan and haldol. Patient placed on airvo at 0040. Patient became unresponsive at 0043. At 0045 patient noted to be without respirations, pulse or blood pressure and was confirmed by Gonzalo Ramos RN.
--- NOTE | 2020-09-29 01:20 | NURSING ---
attempted to call [facility]. Recording instructed that all lines are busy and to leave a message and they will return phone call within 30 minutes.
--- NOTE | 2020-09-29 01:50 | NURSING ---
called [facility] a second time since they had not returned call. Was able to speak to a screening representative.
--- NOTE | 2020-09-29 08:36 | EXP.PCM_ITS ---
Preliminary Cause of Hypoxic respiratory failure secondary to COVID-19 pneumonia Date of Admission: 09/14/20 Date of : 09/29/20 - Principle Diagnosis #1 COVID-19 pneumonia #2 acute hypoxic respiratory failure secondary to COVID-19 pneumonia #3 multiple myeloma #4 essential hypertension #5 severe protein and caloric malnutrition Problem List: Active and Suspected Problems Hypoxia (Acute) Pneumonia due to COVID-19 virus (Acute) Acute respiratory failure with hypoxia (Acute) Hospital Course Patient was seen in the emergency room at [facility] with a chief complaint of increased loss of breath. He had been diagnosed with COVID- 19 a few days prior to being seen in the emergency room. Patient was hypoxic on room air in the emergency room, chest x-ray was obtained and that showed patchy opacities throughout both lungs. Patient was admitted to [facility] and seen in consultation by infectious diseases and pulmonary medicine. Patient status declined during his hospitalization, patient changed his CODE STATUS to DNR CC arrest without intubation. Patient underwent a protracted course in the hospital. On the evening of 09/28/2020, patient was noted to be in atrial fib with RVR, he was started on a Cardizem drip and he did not convert to sinus rhythm. Coincidently with this change, patient became more short of breath and was briefly placed on BiPAP but requested the BiPAP be discontinued. In the early hours of 09/29/2020, patient was placed on high flow oxygen but rapidly decompensated and at 12:45 AM on 09/29/2020.
== END 2020-09-29 00:45 | DRG 871 ==
LOC: ED 17:10 → MS2 19:31 → ICU 09-19 11:41
PROVIDERS: Internal Medicine; Internal Medicine Critical Care Medicine; Admitting Provider Hospitalist; Emergency Provider Emergency Medicine; PCP Family Medicine; Visit Provider Internal Medicine
DX: A41.89 Other specified sepsis (principal); U07.1 COVID-19; J12.89 Other viral pneumonia; J96.01 Acute respiratory failure with hypoxia; E43 Unspecified severe protein-calorie malnutrition; C90.00 Multiple myeloma not having achieved remission; I48.20 Chronic atrial fibrillation, unspecified; R65.20 Severe sepsis without septic shock; Z68.29 Body mass index [BMI] 29.0-29.9, adult; I10 Essential (primary) hypertension; I95.2 Hypotension due to drugs; T42.6X5A Adverse effect of other antiepileptic and sedative-hypnotic drugs, initial encounter; Y92.239 Unspecified place in hospital as the place of occurrence of the external cause; F41.9 Anxiety disorder, unspecified; Z79.899 Other long term (current) drug therapy; Z87.891 Personal history of nicotine dependence
CPT/HCPCS: 36415; 71045; 74019; 80048; 80053; 80076; 82550; 83605; 83615; 83735; 84075; 84484; 85025; 85027; 85379; 85384; 85610; 86900; 86901; 87040; 93005; 94003; 94660; 97110; 97116; 97161; 97166; 97530; 97535; 97802; 99251; 99285; J7040; J7050; A4216; G0463; J1940; J2405